=== PATIENT | female | born 1955 | race Caucasian/White ===

== ENCOUNTER → 2018-01-24 | Outpatient (CLI) | payer BC, OTHER ==
[2018-01-24 13:22] VITALS: BP 155/88; PULSE 53; BMI 36.1
--- NOTE | 2018-01-24 14:08 | P.GSHP ---
History of Present Illness H&P Date: 01/24/18 The patient is a 62-year-old white female who on routine mammogram was noted have an area of concern in the left breast. She subsequently underwent an ultrasound which revealed a 5 mm x 5 mm lesion in the 1 o'clock position 3 cm from the nipple. The patient had an ultrasound core biopsy performed which revealed an invasive ductal grade 1 carcinoma. The patient had no palpable abnormalities in her breasts. She had no history of any trauma to her breast. No history of any infection in her breast. She did have over the past year some nonspecific nipple discharge on the left side. This was not bloody in nature. Family history: 1. paternal grandmother: ovarian cancer, in 30's 2. maternal grandfather: prostate cancer 60,s 3. Paternal aunt: Ovarian cancer in 60s Hormonal history: menarche: 9 1/2 : 3, 3 children, first at 21, breast fed: all of them menopause: 53 BCP: none hormones: none Past surgical history: 1. Cholecystectomy, appendectomy Past medical history: 1. Mitral Valve Prolapse, irregular heart rhythm, takes 81 mg of aspirin Social history: Smoke: Negative Alcohol: Negative Drugs: Negative ROS: HEENT: none lung: none Heart: MVP GI: IBS : none Musculoskeletal: Questionable arthritis Neurologic: Negative Psychiatric: Negative Bleeding abnormalities: Does take baby aspirin ALLERGIES: Negative - Constitutional Constitutional: Denies chills, Denies fever - EENT Eyes: bilateral as per HPI Ears: deny: decreased hearing, tinnitus Ears, nose, mouth and throat: Reports headache, Denies sore throat - Breasts Breasts: bilateral: as per HPI - Cardiovascular Comment: MVP - Respiratory Respiratory: Denies cough, Denies 7 - Gastrointestinal Gastrointestinal: Denies abdominal pain, Denies diarrhea, Denies nausea, Denies vomiting - Genitourinary (Female) Genitourinary: Reports as per HPI - Menstruation Menstruation: Reports as per HPI - Musculoskeletal Comment: arthritis - Integumentary Integumentary: Denies pruritus, Denies rash - Neurological Neurological: Reports as per HPI - Psychiatric Psychiatric: Reports as per HPI - Endocrine Endocrine: Denies fatigue, Denies weight change - Hematologic/Lymphatic Comment: baby aspirin - Allergic/Immunologic Allergic/Immunologic: Reports as per HPI Past Medical History History of Any Multi-Drug Resistant Organisms: None Reported Smoking Status: Unknown if ever smoked Surgical - Exam Vital Signs Pulse BP Pulse Ox 53 L 155/88 99 01/24/18 13:19 01/24/18 13:19 01/24/18 13:19 - General well developed, well nourished, no distress - Eyes normal ocular movement, no icteric - ENT no hearing loss, no congestion - Neck no masses, trachea midline - Respiratory normal respiratory effort, clear to auscultation - Cardiovascular Rhythm: regular Heart Sounds: normal: S1, S2 - Abdomen Abdomen: soft, non tender, no guarding, no rigid, no rebound - Neurologic no disoriented, no combative - Musculoskeletal normal gait, normal posture - Psychiatric oriented to time, oriented to person, oriented to place, speech is normal, memory intact Breast examination: Right breast: Multi-positional exam no dominant masses or nodules of concern Right axilla: No adenopathy of concern Left breast: Multi-positional exam no dominant masses or nodules of concern biopsy site is identified no evidence of any infection Left axilla: No adenopathy of concern Results Ultrasound reviewed Assessment and Plan Assessment: Impression/plan: 1. Left breast invasive ductal carcinoma 2. Mitral valve prolapse 3. Status post cholecystectomy appendectomy Plan: 1. Left breast needle localization lumpectomy, sentinel node biopsy, possible axillary node dissection 2. Cardiac clearance secondary to mitral valve prolapse The risks and benefits of lumpectomy versus mastectomy were discussed with the patient. The patient and her wish to undergo lumpectomy. They understand that they will need radiation following the lumpectomy. The risk of bleeding and infection reaction to the anesthetic and fact that margins may be positive were discussed with the patient and her as well. They understand this and wish to proceed. Surgery will be scheduled in the near future. Cc: Dr. Jamilah Casarez
== END ==
LOC: WWCWWP 12:29
PROVIDERS: ATTEND Surgery
DX: Z53.9 Procedure and treatment not carried out, unspecified reason (principal)

== ENCOUNTER 2018-02-25 11:43 | Day surgery (SDC) | payer BC ==
[2018-02-20 15:47] VITALS: BMI 34.9
[~2018-02-25 11:43] MED LIST: ALPRAZolam 0.25 MG TAB PO PRN; DEXAMETHASONE SOD PHOSPHATE 10 MG/ML 1 ML VIAL IV ONE; HEPARIN SODIUM,PORCINE 5,000 UNIT/ML 1 ML VIAL SQ ONE; HYDROmorphone 0.5 MG/0.5 ML SYRINGE IVP PRN; ONDANSETRON 4 MG/2 ML VIAL IVP ONE; Pre Op ABX Message 1 EACH MISC MISCELLANE ONE
[2018-02-25] MEDS: LACTATED RINGERS 1,000 ML IV SCH ×2 (12:14→13:57)
[2018-02-25] MEDS ORDERED: SODIUM BICARB 4% 5 ML VIAL (0.48 MEQ/ML) MISCELLANE ONE (13:16)
[2018-02-25] MEDS ORDERED: LIDOCAINE 1% INJ 10MG/ML (20 ML MDV) SQ ONE ×3 (13:16→14:49)
[2018-02-25] MEDS ORDERED: HEPARIN SODIUM,PORCINE 5,000 UNIT/ML 1 ML VIAL SQ ONE (13:36)
--- NOTE | 2018-02-25 13:38 | P.NAPBC ---
NAPBC Queries - NAPBC Queries Was patient's case review presented at [facility] tumor board? If no, comment.: Yes Was patient's pathology reviewed at [facility]? If no, comment.: Yes Was breast conservation surgery offered? If no, comment.: Yes Was sentinel node biopsy offered? If no, comment.: Yes Was diagnosis confirmed by percutaneous core biopsy? If no, comment.: Yes If mastectomy patient, was a preop referral to a reconstructive surgeon offered? : Yes (not a mastectomy patient)
--- NOTE | 2018-02-25 13:56 | NM ---
EXAMINATION TYPE: NM sentinel node injection DATE OF EXAM: 02/25/2018 COMPARISON: 02/25/2018 HISTORY: Left breast cancer TECHNIQUE AND FINDINGS: The procedure of sentinel lymph node injection was explained to the patient. The benefits, alternatives, and risks were discussed. An informed consent was then obtained. Overlying skin is cleaned with sterile alcohol. Lidocaine buffered with bicarbonate was used as anes thetic into the skin and subcutaneous tissue surrounding the nipple. Following this, 525 uCi Tc 99m Filtered Sulfur Colloid was injected surrounding the outer aspect of the left nipple intradermally. The injection sites were massaged by nuclear logging engineer for 10 minutes after injection. T he patient tolerated the procedure well without any immediate complication. The patient was kept in the radiology department for short stay after the procedure and then taken to surgery for surgical pr ocedure what is presumed intraoperative gamma probe will be used for sentinel lymph node detection. IMPRESSION: Left breast radiotracer injection for sentinel node localization as above.
[2018-02-25] MEDS ORDERED: fentaNYL (PF) 50 MCG/ML 2 ML AMP ONE (14:03)
[2018-02-25] MEDS ORDERED: ceFAZolin 1,000 MG VIAL ONE (14:03)
[2018-02-25] MEDS ORDERED: LIDOCAINE 1% INJ 10MG/ML (20 ML MDV) ONE (14:03)
[2018-02-25] MEDS ORDERED: MIDAZOLAM 2 MG/2 ML VIAL ONE (14:03)
[2018-02-25] MEDS ORDERED: HYDROmorphone (PF) 1 MG/ML ONE (14:03)
[2018-02-25] MEDS ORDERED: ePHEDrine SULFATE/0.9% NACL/PF 50 MG/5 ML SYRINGE IV ONE (14:03)
[2018-02-25] MEDS ORDERED: PROPOFOL 10 MG/ML 20 ML VIAL IV ONE (14:03)
--- NOTE | 2018-02-25 15:22 | MM ---
EXAMINATION TYPE: MG pre op needle loc LT DATE OF EXAM: 02/25/2018 COMPARISON: 01/08/2018 CLINICAL HISTORY: Abnormal mammogram TECHNIQUE: Needle localization with wire placement and surgical excision of area of concern in the breast. FINDINGS: The procedure of needle localization with wire placement and than surgical excision was explained to the patient. Benefits, alternatives, and risks were discussed. An informed consent was then obtained. The shortest pathway for procedure was chosen. Shortest pathway was lateral approach. The overlying skin was prepped and draped in usual sterile fashion. Lidocaine buffered with bicarbonate was used as anesthetic into the skin and subcutaneous tissue up to the level of area of concern. A 7 cm needle was used. It was placed via a lateral approach under mammographic guidance. Subsequent 90 degrees mammogram show the needle to be in satisfactory position relative to the targeted area. At this point, wire was placed and the needle was withdrawn. The wire was fixed to patient's skin. Images were marked for surgeon. The patient tolerated the procedure well without any immediate complication. The patient was kept in the radiology department for short stay after the procedure and then taken to surgery for surgical excision. Targeted calcifications and wire are identified in specimen mammogram. The patient was kept in hospital for short stay after the procedure and then discharged home in stable condition. IMPRESSION: Successful, uncomplicated needle localization with wire placement and surgical excision of suspicious group of calcifications in the left breast, full pathology results to follow. Pathology Results: Malignant A. LEFT BREAST SENTINAL LYMPH NODE #1, BIOPSY: Lymph node negative for metastasis. CK7 and WALLACE immunoperoxidase stains are confirmatory (controls appropriate). B. LEFT AXILLARY CONTENTS: Lymph node negative for metastasis. CK7 and WALLACE immunoperoxidase stains are confirmatory (controls appropriate) C. 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 Invasive lobular carcinoma extends to the inked purple/posterior margin. Margins negative for invasive ductal carcinoma and DCIS. See Surgical Pathology Cancer Case Summary and comment. Margins negative for invasive ductal carcinoma and DCIS. D. BREAST, LEFT, EXTERNAL SURFACE OF NEW SUPERIOR MARGIN: Focal atypical ductal hyperplasia (ADH) and fibrocystic changes. Negative for malignancy. Recommendation Surgical consult of the left breast. NORMAD
--- NOTE | 2018-02-25 15:24 | P.OP ---
Date of Procedure: 02/25/18 Preoperative Diagnosis: Left breast cancer Postoperative Diagnosis: Same Procedure(s) Performed: Needle localization lumpectomy left breast, painting specimen for orientation, placement of Biozorb, sentinel lymph node biopsy Implants: biozorb Anesthesia: GERTRUDEA Surgeon: Jessica Oliver Estimated Blood Loss (ml): 15 IV fluids (ml): 700 Pathology: other ([place] node, lumpectomy tissue left breast) Condition: stable Disposition: PACU Indications for Procedure: Left breast cancer Operative Findings: Fibrocystic breast changes Description of Procedure: The patient is a 62-year-old white female who is status post biopsy of the left breast. The pathology was consistent with a invasive breast cancer. The patient is scheduled for a needle localization lumpectomy, sentinel node biopsy , possible axillary node dissection. The patient was taken to the operating room and following induction of general anesthesia the left breast and axilla were prepped and draped in a sterile fashion. Utilizing the neoprobe the area for incision in the axilla was identified. An incision was made and carried into the axillary tissue. The patient was noted to have a sentinel node identified. The 10 second count of this node was 2 834. The background 10 second count was 34. No other adenopathy of concern was identified. After assured that hemostasis was attained the deep tissues were closed using a 3-0 Vicryl suture. This was followed by closure of the skin with a 4-0 Monocryl. Following this the area of the breast was approached. An incision was made near the needle localization wire. Dissection was carried down to the area of the shaft of the wire and wide excision was performed. Upon excision a palpable abnormality was identified which appeared to be close to the superior margin and additional superior tissue was obtained. After we were assured that hemostasis was attained the wound was evaluated with a sizer for a BioSorb. A 2 x 3 biozorb was chosen. This was placed and secured in place using a 3-0 Vicryl suture. The deep tissues were closed using 3-0 Vicryl suture. The skin was closed using a 4-0 Monocryl. Radiographic evaluation of the specimen confirmed that the area of concern had been removed. The specimen was painted for orientation prior to being sent for x-ray. The additional superior excision margin external surface was painted as well. The patient tolerated the procedure in stable condition. All instrument and sponge counts were correct at the end of the case.
[2018-02-25] MEDS ORDERED: LACTATED RINGERS 1,000 ML IV ONE (15:25)
--- NOTE | 2018-02-25 15:26 | P.DS ---
Providers Attending physician: Jessica Oliver Primary care physician: Jamilah Casarez Plan - Discharge Summary New Discharge Prescriptions: No Action Simvastatin [Zocor] 40 tab PO DAILY Esomeprazole Magnesium [NexIUM] 10 mg PO DAILY Ibuprofen [Motrin] 400 mg PO DAILY PRN PRN Reason: Pain Aspirin 81 mg PO DAILY Cyclobenzaprine [Flexeril] 10 mg PO DAILY PRN PRN Reason: Pain Valsartan [Diovan] 80 mg PO DAILY Ubidecarenone [Co Q-10] 200 mg PO DAILY Cholecalciferol (Vitamin D3) [Vitamin D3] 2,000 unit PO DAILY Famotidine [Pepcid] 20 mg PO BID Metoprolol Tartrate [Lopressor] 100 mg PO BID Discharge Medication List Simvastatin [Zocor] 40 tab PO DAILY 01/24/18 [History] Aspirin 81 mg PO DAILY 02/12/18 [History] Cholecalciferol (Vitamin D3) [Vitamin D3] 2,000 unit PO DAILY 02/12/18 [History] Cyclobenzaprine [Flexeril] 10 mg PO DAILY PRN 02/12/18 [History] Esomeprazole Magnesium [NexIUM] 10 mg PO DAILY 02/12/18 [History] Ibuprofen [Motrin] 400 mg PO DAILY PRN 02/12/18 [History] Ubidecarenone [Co Q-10] 200 mg PO DAILY 02/12/18 [History] Valsartan [Diovan] 80 mg PO DAILY 02/12/18 [History] Famotidine [Pepcid] 20 mg PO BID 02/20/18 [History] Metoprolol Tartrate [Lopressor] 100 mg PO BID 02/20/18 [History] Follow up Appointment(s)/Referral(s): Jessica Oliver MD [STAFF PHYSICIAN] - 1 Week Activity/Diet/Wound Care/Special Instructions: do not drive today wear bra at all times may shower after 48 hours Discharge Disposition: HOME SELF-CARE
[2018-02-25 15:46] VITALS: TEMP 97
[2018-02-25 15:55] VITALS: RESP 16
[2018-02-25] MEDS ORDERED: HYDROcodone/APAP 5-325MG 1 EACH TAB PO ONE (16:38)
[2018-02-25 17:00] VITALS: BP 139/68; PULSE 88
[2018-02-25] MEDS ORDERED: ONDANSETRON 4 MG/2 ML VIAL IVP ONE (17:00)
--- NOTE | 2018-03-04 09:51 | MM ---
MG Surgical Specimen LT EXAMINATION TYPE: MG pre op needle loc LT DATE OF EXAM: 02/25/2018 COMPARISON: 01/08/2018 CLINICAL HISTORY: Abnormal mammogram TECHNIQUE: Needle localization with wire placement and surgical excision of area of concern in the breast. FINDINGS: The procedure of needle localization with wire placement and than surgical excision was explained to the patient. Benefits, alternatives, and risks were discussed. An informed consent was then obtained. The shortest pathway for procedure was chosen. Shortest pathway was lateral approach. The overlying skin was prepped and draped in usual sterile fashion. Lidocaine buffered with bicarbonate was used as anesthetic into the skin and subcutaneous tissue up to the level of area of concern. A 7 cm needle was used. It was placed via a lateral approach under mammographic guidance. Subsequent 90 degrees mammogram show the needle to be in satisfactory position relative to the targeted area. At this point, wire was placed and the needle was withdrawn. The wire was fixed to patient's skin. Images were marked for surgeon. The patient tolerated the procedure well without any immediate complication. The patient was kept in the radiology department for short stay after the procedure and then taken to surgery for surgical excision. Targeted calcifications and wire are identified in specimen mammogram. The patient was kept in hospital for short stay after the procedure and then discharged home in stable condition. IMPRESSION: Successful, uncomplicated needle localization with wire placement and surgical excision of suspicious group of calcifications in the left breast, full pathology results to follow. RECOMMENDATION: Surgical consultation of the left breast. RADHA
== END 2018-02-25 17:39 | disposition home or self-care (01) ==
LOC: OR 11:43
PROVIDERS: ATTEND Surgery
DX: C50.912 Malignant neoplasm of unspecified site of left female breast (principal); N60.12 Diffuse cystic mastopathy of left breast; N60.92 Unspecified benign mammary dysplasia of left breast; I34.0 Nonrheumatic mitral (valve) insufficiency; I10 Essential (primary) hypertension; E78.2 Mixed hyperlipidemia; K21.9 Gastro-esophageal reflux disease without esophagitis; Z79.82 Long term (current) use of aspirin; Z79.899 Other long term (current) drug therapy; Z88.1 Allergy status to other antibiotic agents
CPT/HCPCS: 88342; 88307; 88341; 76098; 19281; 38792; 19301; 38525; A4648; A9520; J2250; J1644; J1100; J2405; J0690; J2001; J3010; J1170; J2704

== ENCOUNTER → 2018-03-07 | Outpatient (CLI) | payer BC ==
[2018-03-07 09:32] VITALS: BP 123/74; PULSE 68; RESP 16; TEMP 98.2; BMI 34.9
--- NOTE | 2018-03-07 10:20 | P.PN ---
Progress Note - Text Progress Note Date: 03/07/18 The patient is a 62-year-old white female status post left breast lumpectomy and sentinel node biopsy on . The patient's pathology revealed no disease in the sentinel lymph nodes, however she did have invasive ductal carcinoma, ductal carcinoma in situ, lobular carcinoma in situ, and in invasive lobular carcinoma at the posterior margin. The patient's radiograph was reviewed again with the radiologist and the area of invasive lobular carcinoma could not be seen radiographically nor was it identified surgically at the time of the lumpectomy. Secondary to the invasive lobular carcinoma a synchronous lesion in the breast it was recommended that she undergo bilateral breast MRI. The patient and her are most likely going to request a mastectomy be performed secondary to the 2 types of cancer in the breast and the DCIS and LCIS. Physical exam: Examination of the breast reveals incision to be clean and dry, examination of the axilla reveals the incision to be clean and dry Impression: 1. Invasive ductal carcinoma of the left breast, invasive lobular carcinoma the left breast, DCIS, LCIS N0, M0 2. Be present case at tumor board 3. Appointment with medical oncology 4. Premarin with plastic surgery 5. Bilateral breast MRI 6. Follow-up here after bilateral breast MRI CC: Dr. Albert and Jamilah Casarez
== END ==
LOC: WWCWWP 09:14
PROVIDERS: ATTEND Surgery
DX: Z53.9 Procedure and treatment not carried out, unspecified reason (principal)

== ENCOUNTER → 2018-03-12 | Outpatient (CLI) | payer BC ==
--- NOTE | 2018-03-14 15:58 | P.PN ---
Progress Note - Text This is a phone conversation from March 14 with patient Venita Jane. The patient had an appointment today with Dr. Arredondo from plastic surgery. After her appointment with Dr. Arredondo she has decided that she does not want breast reconstruction to be performed. We are awaiting results from her MRI. At this time however the patient states that she has decided she would like bilateral mastectomies performed. She was noted to have invasive ductal carcinoma, invasive lobular carcinoma, DCIS, and LCIS in her left breast on a recent lumpectomy. The patient is concerned that she may harbor a malignancy in the right breast which is not detected radiographically or on physical examination. Therefore, at this time she has made a decision to undergo bilateral simple mastectomy without reconstruction. Depending on results of the MRI she may change her mind however, she states that she doesn't think that she would even if the MRI did not show anything in the right breast.
--- NOTE | 2018-03-20 13:53 | BMR ---
EXAMINATION TYPE: MR breast BILAT wo/w con DATE OF EXAM: 03/12/2018 COMPARISON: Screening mammogram dated 12/03/2017. Diagnostic mammogram dated 12/16/2017. Ultrasound dated 12/17/2017. HISTORY: Breast cancer status post lumpectomy with positive posterior margins for invasive lobular carcinoma. TECHNIQUE: A series of fat and water weighted images in the long and short axis views of both breasts are obtained in conjunction with dynamic contrast MRI with subtraction technique. The patient was i njected with 7.5 mL intravenous Gadavist gadolinium contrast. Three-dimensional and additional post processing imaging is created on independent workstation and reviewed during official interpretation of this study. REFERENCE: Reference PULSE SEQUENCES: Multiplanar, multisequence MR images of the breast were obtained on a MRI imaging scanner. Coronal STIR in the body coil, diffusion weighted imaging, followed by pre-contrast axial T2 fat-saturated, non-fat saturated T1, and one pre- and five post-contrast fat-saturated image s were obtained of both breasts together with the breast coil. Post-processed subtraction and MIP reconstructions were then generated. Dynamic images were spatially registered using the [employer]stream software package, and dynamic curves and parametric images were evaluated. As part of the dynamic portion of this examination, contrast was administered intravenously at a rate not provided, without complication. Field of View for the dynamic portion of this study was not provided. FINDINGS: There is scattered fibroglandular tissue bilaterally and mild background enhancement. Coronal STIR sequence demonstrates normal axillary lymph nodes. There is a 3.0 cm seroma in the left axilla. Axial T2 sequence demonstrates no cysts. There is a 7.4 cm fluid collection in the upper outer quadra nt of the left breast. Non fat saturated T1 sequence demonstrates no fat containing lesions. There is susceptibility artifac t in the upper outer quadrant of the left breast, best seen in image 71. Delayed post contrast sequence demonstrates no internal mammary lymphadenopathy. Regarding the right breast: There are no masses, architectural distortion or suspicious areas of enhancement. Regarding the left breast: There are no masses or suspicious areas of enhancement. There is focal ski n thickening, architectural distortion, and mild peripheral enhancement surrounding the post lumpectomy changes in the upper outer quadrant. The lumpectomy cavity extends to the pectoralis muscle posteriorly. Specifically, there is no suspicious enhancement along the posterior margin of the lumpectomy cavity. IMPRESSION: Post lumpectomy changes seen with no correlate to the known positive margins of the left breast. No evidence of malignancy in the right breast. No lymphadenopathy. Susceptibility artifact from the left breast may represent surgical clips or BioZorb. Correlate with mammogram. Recommendations: Appropriate action be taken of the known positive margins with no MR correlate. In addition, next screening mammogram will be due in November 2018. BI-RADS category 1, negative right breast. BI-RADS category 6, known biopsy proven malignancy left breast. REVIEWED BY: THIS DOCUMENT HAS BEEN ELECTRONICALLY SIGNED Janelle Kohler MD Emergency Management Director of Clinical Radiology Delivery Supervisor, Breast Imaging Section Media Reconciliation Specialist Student Education in Radiology [* Janelle Kohler MD/JC Dictated: 03/19/2018 10:14:34 Exam was sent for outside expert review.
== END | disposition home or self-care (01) ==
LOC: RADMRIMAIN 16:04
PROVIDERS: ATTEND Surgery
DX: Z08 Encounter for follow-up examination after completed treatment for malignant neoplasm (principal); Z85.3 Personal history of malignant neoplasm of breast; Z98.890 Other specified postprocedural states
CPT/HCPCS: 77059; 36415; 0159T; A9581

== ENCOUNTER 2018-03-18 10:44 | Observation (INO) | payer BC, MEDICARE ==
[2018-03-17 10:05] VITALS: BMI 34.9
[~2018-03-18 10:44] MED LIST changes: -ALPRAZolam 0.25 MG TAB PO PRN; -DEXAMETHASONE SOD PHOSPHATE 10 MG/ML 1 ML VIAL IV ONE; -HEPARIN SODIUM,PORCINE 5,000 UNIT/ML 1 ML VIAL SQ ONE; -HYDROmorphone 0.5 MG/0.5 ML SYRINGE IVP PRN; +LACTATED RINGERS 1,000 ML IV SCH; +LIDOCAINE 1% 20 ML VIAL (10MG/ML) FOR IV START INTRADERMA PRN; +MIDAZOLAM 2 MG/2 ML VIAL IV PRN; +SCOPOLAMINE 1.5MG/72HR PATCH TRANSDERM ONE
[2018-03-18] MEDS: HEPARIN SODIUM,PORCINE 5,000 UNIT/ML 1 ML VIAL SQ ONE (12:16)
[2018-03-18] MEDS: DEXAMETHASONE SOD PHOSPHATE 10 MG/ML 1 ML VIAL IV ONE ×2 (12:19→18:49)
--- NOTE | 2018-03-18 13:04 | P.ONQ ---
Anesthesiology Proc Note - PNB - Peripheral Nerve Block Performed Other (see comment) Single Time Out Performed: Yes (pectoralis1 and pectoralis2) Procedure Start Time: 11:54 Procedure Stop Time: 12:01 Indication: Acute Post-Operative Pain, Requested by physician Sedation Type: Sedate with meaningful contact maintained Preparation: Sterile Prep Position: Supine Needle Size: 50mm (2") Needle Gauge: 21 Technique: Ultrasound Injectate: 0.5% Ropivacaine (see comment for volume) (ropi .5% 30cc) Blood Aspirated: No Pain Paresthesia on Injection Noted: No Resistance on Injection: Normal Events: Uneventful and Well Tolerated
[2018-03-18] MEDS ORDERED: HEPARIN SODIUM,PORCINE 5,000 UNIT/ML 1 ML VIAL SQ ONE (13:30)
--- NOTE | 2018-03-18 13:34 | P.PN ---
Progress Note - Text Progress Note Date: 03/18/18 The patient had a bilateral breast MRI performed. The treatment of the right breast is dependent on the MRI results. The results are not yet available and therefore we are foregoing surgical treatment of the right breast at this time. The patient understands this. She understands that if a lesion of concern is noted on the MRI in the right breast we would recommend core biopsy. This would be done because if this was a malignancy we would want to do a sentinel node biopsy. The patient was given the option of waiting for the results of the MRI versus proceeding with left breast mastectomy; at this time she wishes to proceed. If the MRI of the right breast is benign the patient will make a decision as to whether she wants prophylactic surgical intervention of the right breast.
[2018-03-18] MEDS ORDERED: ceFAZolin IN SWFI 2 GM/20 ML SYRINGE IVP STA (13:41)
[2018-03-18] MEDS ORDERED: SUCCINYLCHOLINE CHLORIDE 100 MG/5 ML SYR IV ONE (14:21)
[2018-03-18] MEDS ORDERED: PROPOFOL 10 MG/ML 20 ML VIAL IV ONE (14:21)
[2018-03-18] MEDS ORDERED: fentaNYL (PF) 50 MCG/ML 2 ML AMP ONE (14:21)
[2018-03-18] MEDS ORDERED: LIDOCAINE 1% INJ 10MG/ML (20 ML MDV) ONE (14:21)
[2018-03-18] MEDS ORDERED: ePHEDrine SULFATE/0.9% NACL/PF 50 MG/5 ML SYRINGE IV ONE (14:21)
[2018-03-18] MEDS ORDERED: MIDAZOLAM 2 MG/2 ML VIAL ONE (14:21)
[2018-03-18] MEDS ORDERED: HYDROmorphone (PF) 1 MG/ML ONE (14:21)
[2018-03-18] MEDS ORDERED: ROPIVACAINE 5 MG/ML 30 ML VIAL ONE (14:21)
[2018-03-18] MEDS ORDERED: LACTATED RINGERS 1,000 ML IV ONE (15:30)
[2018-03-18] MEDS ORDERED: ONDANSETRON 4 MG/2 ML VIAL IVP PRN (16:10)
[2018-03-18] MEDS ORDERED: NALOXONE 0.4 MG/ML 1 ML VIAL IV PRN (16:10)
--- NOTE | 2018-03-18 16:10 | P.OP ---
Date of Procedure: 03/18/18 Preoperative Diagnosis: Left breast invasive ductal carcinoma, invasive lobular carcinoma, LCIS, DCIS Postoperative Diagnosis: Same Procedure(s) Performed: Left simple mastectomy Anesthesia: ZOEY Surgeon: Jessica Oliver Estimated Blood Loss (ml): 50 IV fluids (ml): 700 Pathology: other (Left breast) Condition: stable Disposition: PACU Indications for Procedure: The patient is a 62-year-old white female who is status post lumpectomy of the left side. Pathology revealed invasive ductal carcinoma, invasive lobular carcinoma, LCIS, and DCIS. The invasive lobular carcinoma was present at the posterior resection margin. After discussion with the family and her she wished to have a simple mastectomy. She understood the risk and benefits and wished to proceed. She was seen by plastic surgery but chose not to have reconstruction. Operative Findings: Left breast lumpectomy site Description of Procedure: The patient was taken to the operating room and following induction of general anesthesia the left breast was prepped and draped in a sterile fashion. Superior and inferior skin flaps were developed using the electrocautery device as well as the Harmonic scalpel for any vessels that were oozing. Dissection was performed down to the chest wall. The breast was then taken from medial to lateral off the pectoralis major muscle. The breast was removed. The wound was irrigated and any small vessels were cauterized. A small vessel in the medial inferior aspect was oversewn using a Vicryl suture. After this we assured that hemostasis was attained. The wound was sprayed with powder Surgicel. This was then again irrigated and no evidence of any bleeding was identified. A ALEJANDRO drain was placed and secured using a silk suture. The deep tissues were closed using 3-0 Vicryl suture. A subcuticular 4-0 Monocryl suture was performed. Steri-Strips were applied. All instrument and sponge counts were correct at the end of the case. The patient tolerated the procedure in stable condition.
[2018-03-18] MEDS: HYDROmorphone 0.5 MG/0.5 ML SYRINGE IVP PRN ×4 (16:42→17:09)
[2018-03-18] MEDS: DEXTROSE 5%-0.45% NACL 1,000 ML IV SCH (18:12)
[2018-03-18] MEDS: METOPROLOL TARTRATE 50 MG TAB PO SCH (20:46)
[2018-03-18] MEDS: HEPARIN SODIUM,PORCINE 5,000 UNIT/ML 1 ML VIAL SQ SCH (20:46)
[2018-03-19] MEDS: ONDANSETRON 4 MG/2 ML VIAL IVP PRN ×2 (00:12→06:43)
[2018-03-19] MEDS: HYDROcodone/APAP 5-325MG 1 EACH TAB PO PRN ×2 (00:38→15:22)
[2018-03-19] MEDS: HYDROmorphone 1 MG/ML 1 ML SYRINGE IV PRN ×2 (01:48→07:16)
[2018-03-19] MEDS: DEXTROSE 5%-0.45% NACL 1,000 ML IV SCH ×2 (01:54→11:44)
[2018-03-19] MEDS ORDERED: CYCLOBENZAPRINE 10 MG TAB PO PRN (06:36)
[2018-03-19] MEDS ORDERED: IBUPROFEN 400 MG TAB PO PRN (06:36)
[2018-03-19] MEDS ORDERED: FAMOTIDINE 20 MG TAB PO SCH (06:45)
[2018-03-19] MEDS: HEPARIN SODIUM,PORCINE 5,000 UNIT/ML 1 ML VIAL SQ ONE (07:22)
[2018-03-19] MEDS: HEPARIN SODIUM,PORCINE 5,000 UNIT/ML 1 ML VIAL SQ SCH (08:23)
[2018-03-19 08:26] LABS: ALT 30 U/L (9-52); AST 24 U/L (14-36); Albumin 3.7 g/dL (3.5-5.0); Alkaline Phosphatase 58 U/L (38-126); Anion Gap 9 mmol/L; Blood Urea Nitrogen 14 mg/dL (7-17); Calcium 9.2 mg/dL (8.4-10.2); Carbon Dioxide 25 mmol/L (22-30); Chloride 102 mmol/L (98-107); Glucose 118 mg/dL (74-99); Sodium 136 mmol/L (137-145); Total Bilirubin 1.1 mg/dL (0.2-1.3); Total Protein 6.3 g/dL (6.3-8.2)
[2018-03-19 08:40] LABS: Basophils % (A) 0 %; Eosinophils # (A) 0.1 k/uL (0-0.7); Eosinophils % (A) 1 %; HCT 38.5 % (34.0-46.0); HGB 12.5 gm/dL (11.4-16.0); Lymphocytes # (A) 1.9 k/uL (1.0-4.8); Lymphocytes % (A) 18 %; MCH 32.1 pg (25.0-35.0); MCHC 32.5 g/dL (31.0-37.0); MCV 98.9 fL (80.0-100.0); Monocytes # (A) 0.6 k/uL (0-1.0); Monocytes % (A) 6 %; Neutrophils # (A) 7.7 k/uL (1.3-7.7); Neutrophils % (A) 74 %; Platelet Count 251 k/uL (150-450); RBC 3.89 m/uL (3.80-5.40); RDW 13.1 % (11.5-15.5); WBC 10.4 k/uL (3.8-10.6)
--- NOTE | 2018-03-19 08:41 | P.PN ---
Subjective Progress Note Date: 03/19/18 The patient is a 62-year-old white female who was postop day #1 from a left breast mastectomy. She complains of nausea and neck and back pain this morning. Secondary to the nausea she has been unable to tolerate her diet. She does not complain of incisional pain. She has a ALEJANDRO drain in place the output is serous in his 25 mL. Objective - Vital Signs Vital signs: Vital Signs Temp 98.2 F 03/19/18 00:08 Pulse 75 03/19/18 00:08 Resp 18 03/19/18 00:08 BP 119/71 03/19/18 00:08 Pulse Ox 95 03/19/18 00:08 Intake & Output 03/18/18 03/19/18 03/19/18 18:59 06:59 18:59 Intake Total 1400 Output Total 50 1005 Balance 1350 -1005 Intake: IV 1400 Output: Drainage 55 Left Breast 55 Urine 950 Estimated Blood Loss 50 Other: # Voids 0 # Emeses 2 - Constitutional General appearance: Present: average body habitus - EENT Eyes: Present: EOMI - Neck Details: Tenderness posterior neck and shoulders. Appears to be musculoskeletal in nature - Respiratory Respiratory: bilateral: CTA - Cardiovascular Rhythm: regular Heart sounds: normal: S1, S2 - Gastrointestinal General gastrointestinal: Present: normal bowel sounds, soft - Integumentary Integumentary Comment(s): Incision clean and dry, wrap removed and replaced No evidence of any hematoma - Psychiatric Psychiatric: Present: A&O x's 3, appropriate affect, intact judgment & insight - Labs CBC & Chem 7: 03/19/18 07:31 Labs: Abnormal Lab Results - Last 24 Hours (Table) 03/19/18 Range/Units 07:31 Sodium 136 L (137-145) mmol/L Glucose 118 H (74-99) mg/dL Assessment and Plan Assessment: Impression: 1. Status post left breast mastectomy postop day #1 2. Nausea 3. Back and shoulder pain Plan: 1. DC Zofran start Reglan 2. Flexeril 3. Await until the patient can tolerate diet
[2018-03-19 08:52] VITALS: RESP 16
[2018-03-19] MEDS ORDERED: PANTOPRAZOLE 40 MG TABLET PO SCH (09:00)
[2018-03-19] MEDS ORDERED: VALSARTAN 80 MG TAB PO SCH (09:00)
[2018-03-19] MEDS ORDERED: PANTOPRAZOLE 40 MG/10 ML VIAL IV SCH (09:00)
[2018-03-19] MEDS: METOCLOPRAMIDE 5 MG/ML 2 ML VIAL IVP PRN ×2 (09:11→15:18)
[2018-03-19] MEDS: METOPROLOL TARTRATE 50 MG TAB PO SCH (09:11)
[2018-03-19 12:24] VITALS: PULSE 61; TEMP 98.5
--- NOTE | 2018-03-19 13:03 | P.CONS ---
History of Present Illness - Reason for Consult Consult date: 03/19/18 Medical management - History of Present Illness This is a 62-year-old female patient of Dr. Fracisco Casarez and Dr. Jamilah Casarez with a past mental history of gastroesophageal reflux disease, hypertension, mitral valve prolapse, degenerative disc disease in the neck. Patient has recently been diagnosed with breast cancer on the left side status post lumpectomy and sentinel lymph node biopsy area pathology report showed left breast sentinel lymph node negative for metastasis. Left axillary lymph node negative for metastasis. Left breast lumpectomy revealed a well differentiated ductal carcinoma with low-grade ductal carcinoma in situ and invasive lobular carcinoma with lobular carcinoma in situ. Invasive lobular carcinoma extends to the inked margins. Margins negative for invasive ductal carcinoma and DCIS. Tumor cells positive for estrogen receptor and progesterone receptor by immunohistochemistry. Tumor cells negative for HER 2/ Jeramie. Patient was brought in the hospital is status post left simple mastectomy with Dr. Luiz Glover. This was completed yesterday. ALEJANDRO drain is in place with plan to continue this post discharge. Patient does have some pain issues and also some nausea in the postop period. She states nausea seems to have cleared now and the Reglan seemed to help her. She denies having any abdominal pain or epigastric pain. No diarrhea or constipation. She is complaining of significant neck discomfort which is chronic for the past 8 years secondary to degenerative disc disease. She takes Flexeril as needed as well as tramadol occasionally. She does have radiation into the shoulders and upper arms on the left she does state pain is improving to her neck as well as breast. Review of Systems All systems: negative Constitutional: Reports chronic pain, Denies chills, Denies fever Eyes: denies blurred vision, denies pain Ears, nose, mouth and throat: Denies headache, Denies sore throat Breasts: left: pain Cardiovascular: Denies chest pain, Denies leg edema, Denies lightheadedness, Denies shortness of breath, Denies syncope Respiratory: Denies cough, Denies cough with sputum, Denies dyspnea, Denies excessive sputum, Denies hemoptysis, Denies home oxygen, Denies wheezing Gastrointestinal: Reports nausea, Denies abdominal pain, Denies diarrhea, Denies vomiting Genitourinary: Denies dysuria, Denies hematuria, Denies urgency Musculoskeletal: Reports neck pain, Reports neck stiffness, Denies myalgias Integumentary: Reports wounds, Denies pruritus, Denies rash Neurological: Denies numbness, Denies weakness Psychiatric: Denies anxiety, Denies depression Endocrine: Denies fatigue, Denies weight change Past Medical History Past Medical History: Cancer, GERD/Reflux, Hypertension, Mitral Valve Prolapse ( MVP) Additional Past Medical History / Comment(s): new dx. breast cancer, degenerative disc disease of cervical spine History of Any Multi-Drug Resistant Organisms: None Reported Past Surgical History: Appendectomy, Breast Surgery, Cholecystectomy Additional Past Surgical History / Comment(s): L breast bx., left breast lumpectomy & sentinel lymph node biopsy, left simple mastectomy Past Anesthesia/Blood Transfusion Reactions: No Reported Reaction Smoking Status: Never smoker Additional Past Alcohol Use History / Comment(s): Patient is a lifelong nonsmoker. She denies any marijuana, illicit drug use or alcohol use. - Past Family History Mother Family Medical History: No Reported History Additional Family Medical History / Comment(s): Mother is alive at age 89 with history of hypertension. Father Family Medical History: Pulmonary Embolus Additional Family Medical History / Comment(s): Father is alive at age 90 with history of skin cell basal cell cancer and hypertension. Brother(s) Additional Family Medical History / Comment(s): She has 3 brothers and 1 sister with no major medical problems. Daughter(s) Additional Family Medical History / Comment(s): Patient has 3 children. One daughter at age 36 with history of complicated ulcerative colitis with history of pneumonia, sepsis and bacterial meningitis, peritonsillar abscess, pulmonary embolism, stroke. Patient's other 2 children have no major medical problems. Maternal grandfather at age 66 8 from prostate cancer. Paternal grandmother at young age from ovarian cancer. Medications and Allergies Home Medications Medication Instructions Recorded Confirmed Type Simvastatin [Zocor] 40 tab PO HS 01/24/18 03/19/18 History Aspirin 81 mg PO DAILY 02/12/18 03/19/18 History Cholecalciferol (Vitamin D3) 2,000 unit PO DAILY 02/12/18 03/19/18 History [Vitamin D3] Cyclobenzaprine [Flexeril] 10 mg PO DAILY PRN 02/12/18 03/19/18 History Esomeprazole Magnesium [NexIUM] 10 mg PO Q48H 02/12/18 03/19/18 History Ibuprofen [Motrin] 400 mg PO DAILY PRN 02/12/18 03/19/18 History Ubidecarenone [Co Q-10] 200 mg PO DAILY 02/12/18 03/19/18 History Valsartan [Diovan] 80 mg PO DAILY 02/12/18 03/19/18 History Famotidine [Pepcid] 20 mg PO Q48H 02/20/18 03/19/18 History Metoprolol Tartrate [Lopressor] 100 mg PO BID 02/20/18 03/19/18 History traMADol HCL [Ultram] 50 mg PO Q6H PRN 03/07/18 03/19/18 History Multivit with Calcium,Iron,Min 1 tab PO DAILY 03/17/18 03/19/18 History [Women's Multivitamin] [place]val[place]-3 Fatty Acids [Avalon-3] 1,000 mg PO DAILY 03/17/18 03/19/18 History Allergies Allergy/AdvReac Type Severity Reaction Status Date / Time ciprofloxacin [From Cipro] Allergy tachycardia Verified 03/19/18 08:09 Physical Exam Vitals: Vital Signs Temp Pulse Pulse Pulse Resp BP BP 03/19/18 08:07 97.7 F 70 16 113/65 03/19/18 00:08 98.2 F 75 18 119/71 03/18/18 20:40 97.1 F L 76 14 118/64 03/18/18 19:46 79 16 95/62 03/18/18 19:16 82 16 118/57 03/18/18 18:46 75 16 115/62 03/18/18 18:14 74 16 111/62 03/18/18 17:59 76 16 124/67 03/18/18 17:44 77 16 121/67 03/18/18 17:25 97.9 F 79 16 127/64 03/18/18 17:05 75 16 133/61 03/18/18 16:50 82 16 138/64 03/18/18 16:35 75 16 137/63 03/18/18 16:21 97.2 F L 85 18 134/61 03/18/18 12:10 63 16 136/41 03/18/18 11:28 98.7 F 59 L 18 155/59 Pulse Ox 03/19/18 08:07 97 03/19/18 00:08 95 03/18/18 20:40 97 03/18/18 19:46 94 L 03/18/18 19:16 93 L 03/18/18 18:46 92 L 03/18/18 18:14 94 L 03/18/18 17:59 03/18/18 17:44 100 03/18/18 17:25 98 03/18/18 17:05 99 03/18/18 16:50 99 03/18/18 16:35 99 03/18/18 16:21 93 L 03/18/18 12:10 100 03/18/18 11:28 98 Intake and Output 03/18/18 03/19/18 03/19/18 22:59 06:59 14:59 Intake Total 400 Output Total 80 975 Balance 320 -975 Intake: IV 400 Output: Drainage 30 25 Left Breast 30 25 Urine 950 Estimated Blood Loss 50 Other: # Voids 0 # Emeses 2 Gen: This is a 62-year-old female. She is sitting up in bed appears to be somewhat uncomfortable mostly from neck pain. HEENT: Head is atraumatic, normocephalic. Pupils equal, round. Sclerae is anicteric. NECK: Supple. No JVD. No lymphadenopathy. No thyromegaly. LUNGS: Clear to auscultation. No wheezes or rhonchi. No intercostal retractions. HEART: Regular rate and rhythm. No murmur. Breast: Left breast incision has dressing in place is clean and dry. ALEJANDRO drain with serous drainage. ABDOMEN: Soft. Bowel sounds are present. No masses. No tenderness. EXTREMITIES: No pedal edema. No calf tenderness. NEUROLOGICAL: Patient is awake, alert and oriented x3. Cranial nerves 2 through 12 are grossly intact. Results CBC & Chem 7: 03/19/18 07:31 03/19/18 07:31 Labs: Abnormal Lab Results - Last 24 Hours (Table) 03/19/18 Range/Units 07:31 Sodium 136 L (137-145) mmol/L Glucose 118 H (74-99) mg/dL Assessment and Plan Plan: 1. Left breast mastectomy under the care of Dr. Luiz Glover. Continue current pain management, Zofran and Reglan for nausea. ALEJANDRO drain remains in place with plan for this continued at discharge. 2. Hypertension. Continue valsartan 80 mg daily and Lopressor 100 mg twice daily. 3. Hyperlipidemia. Continue simvastatin 40 mg at bedtime and omega-3. 4. Gastroesophageal reflux disease. Continue Nexium or equivalent. 5. Degenerative disc disease of the cervical spine with chronic neck pain exacerbated by recent surgical physician. Continue Atkinson, Flexeril. Patient takes tramadol at home. 6. Postop nausea, improved. Discharge plan:Return home Impression and plan of care have been directed as dictated by the signing physician. Melissa Wu nurse practitioner acting as scribe for signing physician.
[2018-03-19] MEDS ORDERED: ATORVASTATIN 20 MG TAB PO SCH (21:00)
--- NOTE | 2018-03-25 10:24 | P.DS ---
Providers Date of admission: 03/19/18 01:34 Attending physician: Jessica Oliver Consults: 03/18/18 16:12 Consult Physician Routine Consulting Provider: Elisha Luther Consult Reason/Comments: medical managment Do you want consulting provider notified?: Yes Primary care physician: Jamilah Hernandez [facility] Course: The patient is a 62-year-old white female who is postop from left simple mastectomy. She had prior undergone a lumpectomy which revealed invasive lobular carcinoma positive at the posterior resection margin. This was a second primary in the breast the patient was noted to have invasive ductal cancer, DCIS, and LCIS. After review of her pathology results the patient opted for a left mastectomy. Initially postoperative she had some nausea which resolved. Additionally she complained of some neck and back discomfort which also resolved. The patient at time of discharge is tolerating diet without difficulty and doing well. Patient Condition at Discharge: Stable Plan - Discharge Summary New Discharge Prescriptions: New HYDROcodone/APAP 5-325MG [[place] 5-325] 1 each PO Q4HR PRN tab PRN Reason: Moderate Pain Continue Simvastatin [Zocor] 40 tab PO HS Esomeprazole Magnesium [NexIUM] 10 mg PO Q48H Cyclobenzaprine [Flexeril] 10 mg PO DAILY PRN PRN Reason: Pain Valsartan [Diovan] 80 mg PO DAILY Ubidecarenone [Co Q-10] 200 mg PO DAILY Cholecalciferol (Vitamin D3) [Vitamin D3] 2,000 unit PO DAILY Famotidine [Pepcid] 20 mg PO Q48H Metoprolol Tartrate [Lopressor] 100 mg PO BID [place]-3 Fatty Acids [[place]-3] 1,000 mg PO DAILY Multivit with Calcium,Iron,Min [Women's Multivitamin] 1 tab PO DAILY Discontinued Ibuprofen [Motrin] 400 mg PO DAILY PRN PRN Reason: Pain Aspirin 81 mg PO DAILY traMADol HCL [Ultram] 50 mg PO Q6H PRN PRN Reason: Pain Control Discharge Medication List Simvastatin [Zocor] 40 tab PO HS 01/24/18 [History] Cholecalciferol (Vitamin D3) [Vitamin D3] 2,000 unit PO DAILY 02/12/18 [History] Cyclobenzaprine [Flexeril] 10 mg PO DAILY PRN 02/12/18 [History] Esomeprazole Magnesium [NexIUM] 10 mg PO Q48H 02/12/18 [History] Ubidecarenone [Co Q-10] 200 mg PO DAILY 02/12/18 [History] Valsartan [Diovan] 80 mg PO DAILY 02/12/18 [History] Famotidine [Pepcid] 20 mg PO Q48H 02/20/18 [History] Metoprolol Tartrate [Lopressor] 100 mg PO BID 02/20/18 [History] Multivit with Calcium,Iron,Min [Women's Multivitamin] 1 tab PO DAILY 03/17/18 [ History] [place]-3 Fatty Acids [[place]-3] 1,000 mg PO DAILY 03/17/18 [History] HYDROcodone/APAP 5-325MG [[place] 5-325] 1 each PO Q4HR PRN tab 03/19/18 [Rx] Activity/Diet/Wound Care/Special Instructions: Patient received supplies for dressing change if needed. Patient and Spouse educated on drain care and return demonstration done. Follow up at [facility] on Mar.24 at 3:40. Call sooner for concerns. Call for any increase in pain, signs or symptoms of infection such as yellow/green drainage, change in odor, fever or increased redness at site. No heavy lifting, no pushing or pulling. sponge bathing only. Discharge Disposition: HOME SELF-CARE
== END 2018-03-19 16:11 | disposition home or self-care (01) ==
LOC: OR 10:44 → 6PED 16:25 → OR 03-19 01:43
PROVIDERS: ADMIT Surgery; ATTEND Surgery
DX: D05.02 Lobular carcinoma in situ of left breast (principal); D05.12 Intraductal carcinoma in situ of left breast; K21.9 Gastro-esophageal reflux disease without esophagitis; I10 Essential (primary) hypertension; I34.1 Nonrheumatic mitral (valve) prolapse; M50.30 Other cervical disc degeneration, unspecified cervical region; E78.5 Hyperlipidemia, unspecified; Z17.0 Estrogen receptor positive status [ER+]; Z90.49 Acquired absence of other specified parts of digestive tract; Z82.49 Family history of ischemic heart disease and other diseases of the circulatory system; Z80.8 Family history of malignant neoplasm of other organs or systems; Z82.3 Family history of stroke; Z80.41 Family history of malignant neoplasm of ovary; Z80.42 Family history of malignant neoplasm of prostate; Z79.82 Long term (current) use of aspirin; Z79.899 Other long term (current) drug therapy; Z88.1 Allergy status to other antibiotic agents
CPT/HCPCS: 19303; 80053; 85025; 88307; G0378; J2250; J1644 ×2; J1100; J2765; J2405 ×2; J2001; J3010; J1170 ×3; J2795; J0330; J2704; C9113; J0690

== ENCOUNTER → 2018-03-24 | Outpatient (CLI) | payer MEDICARE ==
[2018-03-24 15:53] VITALS: BP 138/83; PULSE 67; RESP 12; TEMP 98; BMI 34.9
--- NOTE | 2018-03-24 16:38 | P.PN ---
Progress Note - Text Progress Note Date: 03/24/18 The patient is a 62-year-old white female status post left breast mastectomy. Postoperatively she is doing well without complaints. Her ALEJANDRO drain is still putting out approximately 30 mL's a day for the last 2 days it is serous in nature. Patient's pathology did not reveal residual cancer. Her original pathology was a lumpectomy which had a positive posterior margin for infiltrating lobular carcinoma. The patient subsequently had an MRI performed which did not reveal any lesions of concern in the right breast. At this time the patient is going to be followed conservatively for her right breast. Physical examination: Incision clean and dry ALEJANDRO serous drainage Impression: 1. Patient status post mastectomy for invasive lobular carcinoma positive posterior margin and lumpectomy specimen 2. Patient has an appointment to see medical oncology tomorrow Plan: 1. Follow-up medical oncology 2. Follow up here next week for drain removal CC: Dr. Curry
== END ==
LOC: WWCWWP 15:38
PROVIDERS: ATTEND Surgery
DX: Z53.9 Procedure and treatment not carried out, unspecified reason (principal)

== ENCOUNTER → 2018-04-03 | Outpatient (CLI) | payer MEDICARE ==
[2018-04-03 12:42] VITALS: BP 125/77; PULSE 70; RESP 18; TEMP 97.8; BMI 34.5
--- NOTE | 2018-04-03 13:39 | P.PN ---
Progress Note - Text Progress Note Date: 04/03/18 The patient is a 63-year-old white female status post left breast mastectomy. The patient initially had a lumpectomy and was noted to have a infiltrating lobular carcinoma the posterior margin. This was a second primary tumor in the breast. The patient therefore opted for a left breast mastectomy. Postoperatively the patient is done well she has seen the medical oncologist and onco-type DX study has been ordered. The patient has no complaints at this time. The patient's drainage is serous and is a proximally 17 mL per day. The ALEJANDRO drain will be removed. physical Exam: Lungs: Clear Heart: Regular rate and rhythm Incision: Clean and dry ALEJANDRO output minimal serous Impressioin: 1. Status post left breast mastectomy stage I disease 2. Appointment with medical oncology awaiting Oncotype DX results Plan: 1. Continue to follow with medical oncology 2. Follow up here in 4 months time CC: Dr. Askew/Roosevelt Curry
== END | disposition home or self-care (01) ==
LOC: WWCWWP 12:10
PROVIDERS: ATTEND Surgery
DX: Z53.9 Procedure and treatment not carried out, unspecified reason (principal)

== ENCOUNTER → 2018-04-25 | Outpatient (CLI) | payer MEDICARE ==
[2018-04-25 12:35] VITALS: BP 134/74; PULSE 60; RESP 18; TEMP 98.1; BMI 34.9
--- NOTE | 2018-04-25 13:16 | P.PN ---
Progress Note - Text Progress Note Date: 04/25/18 Patient is a 63 year old white female with a complaint of swelling at the mastectomy site and is concerned this represents a seroma. The patient states the area is slightly swollen and appears to have a fluid wave when she applies pressure to it. It is nontender. There is no evidence of any infection. Examination: Incision clean and dry left chest wall Left chest wall has a seroma present No evidence of recurrent cancer Impression: Seroma left chest wall mastectomy site Plan: Aspiration seroma Procedure: The area of the seroma was prepped using Betadine One percent lidocaine was used to anesthetize the area of the skin A 30 mL syringe and an 18-gauge needle was used to aspirate a seroma. Approximately 85 mL of straw-colored fluid was removed. There was resolution of the seroma. The patient tolerated the procedure in stable condition. Plan: 1. Follow-up in 1 month Cc: Dr. Roosevelt Curry
== END | disposition home or self-care (01) ==
LOC: WWCWWP 11:40
PROVIDERS: ATTEND Surgery
DX: Z53.9 Procedure and treatment not carried out, unspecified reason (principal)

== ENCOUNTER → 2018-05-20 | Outpatient (CLI) | payer MEDICARE ==
--- NOTE | 2018-05-20 13:37 | BD ---
EXAMINATION TYPE: Axial Bone Density DATE OF EXAM: 05/20/2018 COMPARISON: NONE CLINICAL HISTORY: 63 YR OLD FEMALE....ICD-10 CODE: Z17.0 CARCINOMA OF BREAST Height: 61.5 Weight: 186 FRAX RISK QUESTIONS: NOTHING TO NOTE HERE RISK FACTORS HISTORY OF: Active: FAIRLY Postmenopausal woman: YES, AT AGE 54 MEDICATIONS: Additional Medications: BP MEDS, REFLUX MEDS, STATIN FOR CHOLESTEROL, VIT D Additional History: HX OF LT BREAST CA, HYPERTENSION, CHOLESTEROL EXAM MEASUREMENTS: Bone mineral densitometry was performed using the Opendisc System. Bone mineral density as measured about the Lumbar spine is: ----- L1-L4(G/cm2): 1.493 T Score Values are as follows: ----- L1: 1.4 ----- L2: 2.1 ----- L3: 2.6 ----- L4: 4.0 ----- L1-L4: 2.6 Bone mineral density FIRST BONE DENSITY AT [facility] Bone mineral density about the R hip (g/cm2): 1.014 Bone mineral density about the L hip (g/cm2): 1.087 T Score values are as follows: -----R Neck: -0.3 -----L Neck: -0.4 -----R Total: 0.0 -----L Total: 0.6 Bone mineral density FIRST STUDY AT [facility] FRAX%s: THERE IS A 6.6% CHANCE FOR A MAJOR OSTEOPOROTIC FX AND A 0.3% FOR HIP FX.....PROBABILITY O F FX IN 10 YRS TIME IMPRESSION: Normal (Values between +1 and -1 indicate normal bone mass). Consider repeating this study in 5 year s or sooner if there is some new clinical indication. NOTE: T-SCORE=SD OF THE YOUNG ADULT MEAN.
== END | disposition home or self-care (01) ==
LOC: RADBDWWP 07:01
PROVIDERS: ATTEND Internal Medicine Hematology & Oncology
DX: C50.919 Malignant neoplasm of unspecified site of unspecified female breast (principal); Z17.0 Estrogen receptor positive status [ER+]; Z88.1 Allergy status to other antibiotic agents
CPT/HCPCS: 77080

== ENCOUNTER → 2018-05-29 | Outpatient (CLI) | payer MEDICARE ==
[2018-05-29 12:22] VITALS: BP 142/70; PULSE 60; RESP 18; TEMP 97.3; BMI 34.9
--- NOTE | 2018-05-29 13:01 | P.PN ---
Subjective Progress Note Date: 05/29/18 Principal diagnosis: Patient is status post left mastectomy for a left breast cancer. The patient wasn't originally noted to have a lesion in the upper outer quadrant of the left breast which was a 5 x 5 mm lesion at 1:00 3 cm from the nipple. Ultrasound core biopsy was positive for invasive ductal carcinoma, grade 1. The tumor was ER/SD positive and HER-2 negative. The patient underwent a needle localization lumpectomy and sentinel node biopsy on . In the specimen 2 separate nodules were identified grossly. The larger nodule was a 9 mm well-differentiated invasive ductal carcinoma with accompanying low-grade DCIS. The second nodule was an 8 mm focus of invasive lobular carcinoma focally extending to the posterior margin. LCIS was also noted. Secondary to this pathology the patient opted for a mastectomy. The patient did not have further cancer on her mastectomy nor did she have any positive sentinel lymph nodes. The patient has been seen by Dr. Buenrostro she is presently taking tamoxifen. She has not had any radiation therapy nor has his been recommended. The patient did have an Oncotype performed on both specimens and both were low and no chemotherapy has been recommended. The patient is doing well at this time with no complaints. She has minimal recurrence of the seroma but this is not bothering her at this time. Objective - Vital Signs Vital signs: Vital Signs Temp 97.3 F L 05/29/18 12:15 Pulse 60 05/29/18 12:15 Resp 18 05/29/18 12:15 BP 142/70 05/29/18 12:15 Pulse Ox 99 05/29/18 12:15 Intake & Output 05/28/18 05/29/18 05/29/18 18:59 06:59 18:59 Weight 83.915 kg - Exam BMI 35 - Constitutional General appearance: Present: average body habitus, cooperative - EENT Eyes: Present: EOMI ENT: Present: hearing grossly normal - Respiratory Respiratory: bilateral: CTA - Cardiovascular Details: systolic ejection murmur Rhythm: regular Heart sounds: normal: S1, S2 - Gastrointestinal General gastrointestinal: Present: soft - Integumentary Integumentary Comment(s): breast exam: right breast: multipositional exam no masses right axilla: no adenopathy of concern left chest wall: No recurrent disease, very small seroma which is asymptomatic Left axilla: No adenopathy of concern Integumentary: Present: normal turgor - Musculoskeletal Musculoskeletal: Present: gait normal - Psychiatric Psychiatric: Present: A&O x's 3, appropriate affect, intact judgment & insight Assessment and Plan Assessment: Impression: 1. left breast mastectomy small seroma/doing well 2. starting tamoxifen Plan: 1. follow up in 4 months 2. follow up sooner is needed cc: Dr. Jamilah Casarez
== END | disposition home or self-care (01) ==
LOC: WWCWWP 11:48
PROVIDERS: ATTEND Surgery
DX: Z53.9 Procedure and treatment not carried out, unspecified reason (principal)

== ENCOUNTER 2018-09-03 10:18 | Day surgery (SDC) | payer MEDICARE ==
[2018-08-29 16:32] VITALS: BMI 34.9
[~2018-09-03 10:18] MED LIST changes: -LIDOCAINE 1% 20 ML VIAL (10MG/ML) FOR IV START INTRADERMA PRN; -MIDAZOLAM 2 MG/2 ML VIAL IV PRN; -ONDANSETRON 4 MG/2 ML VIAL IVP ONE; -Pre Op ABX Message 1 EACH MISC MISCELLANE ONE; -SCOPOLAMINE 1.5MG/72HR PATCH TRANSDERM ONE
[2018-09-03 11:19] VITALS: TEMP 97.9
[2018-09-03] MEDS ORDERED: PROPOFOL 10 MG/ML 20 ML VIAL IV ONE (11:48)
--- NOTE | 2018-09-03 12:25 | P.PCN ---
Date of Procedure: 09/03/18 Description of Procedure: BRIEF HISTORY: The patient is a pleasant 63-year-old female who presents for outpatient colonoscopy. The patient denies any prior history of colonoscopy. She denies any signs or symptoms of GI bleeding, change in bowel habits, constipation or diarrhea. PROCEDURE PERFORMED: Colonoscopy with polypectomy. PREOPERATIVE DIAGNOSIS: Screening colonoscopy, no prior colonoscopy. ESTIMATED BLOOD LOSS: Minimal. IV sedation per Anesthesia. PROCEDURE: After informed consent was obtained, the patient, was brought into the endoscopy unit. IV sedation was administered by Anesthesia under continuous monitoring. Digital rectal examination was normal. Initially the Olympus CF-190 flexible video colonoscope was then inserted in the rectum, gradually advanced into the cecum without any difficulty. Careful examination was performed as the scope was gradually being withdrawn. Ileocecal valve and the appendiceal orifice were visualized and appeared normal. Prep was excellent. Mucosa of the cecum, ascending colon, transverse colon, descending colon, sigmoid colon, and rectum appeared normal. A diminutive 3 mm polyp in the ascending colon was removed with cold forcep polypectomy. Mild scattered diverticulosis in the sigmoid colon. Retroflexion was performed in the rectum and no lesions were seen, internal hemorrhoids noted. The patient tolerated the procedure well. IMPRESSION: 1. Ascending colon polyp removed with cold forcep polypectomy. 2. Diverticulosis. 3. Mild internal hemorrhoids. RECOMMENDATIONS: Findings of this examination were discussed with the patient and her . Okay to resume high-fiber diet. Await pathology from polypectomy. Recommend repeat colonoscopy in 5 years pending pathology from polypectomy.
[2018-09-03 12:38] VITALS: BP 124/70; PULSE 71; RESP 18
== END 2018-09-03 12:59 | disposition home or self-care (01) ==
LOC: ORWHC2ENDO 10:18
PROVIDERS: ATTEND Internal Medicine
DX: Z12.11 Encounter for screening for malignant neoplasm of colon (principal); D12.2 Benign neoplasm of ascending colon; K64.8 Other hemorrhoids; Z88.1 Allergy status to other antibiotic agents; E78.5 Hyperlipidemia, unspecified; Z85.3 Personal history of malignant neoplasm of breast; K21.9 Gastro-esophageal reflux disease without esophagitis; Z79.899 Other long term (current) drug therapy
CPT/HCPCS: 88305; 45380; J2704

== ENCOUNTER → 2018-10-02 | Outpatient (CLI) | payer MEDICARE ==
[2018-10-02 12:51] VITALS: BP 153/74; PULSE 68; RESP 18; TEMP 98.6; BMI 34.9
--- NOTE | 2018-10-02 13:30 | P.PN ---
Subjective Progress Note Date: 10/02/18 Principal diagnosis: Is a 63-year-old white female who is status post left breast mastectomy on 03/18/18. Lumpectomy in February 2018 at this time she was noted to have multifocal disease. With that understanding she opted for a left breast mastectomy. The tumor was positive for ER/OR negative for HER-2/arnie. The patient is not having any fever or chills nausea or vomiting. The patient was noted to have a lesion in the upper quadrant of the left breast which was 5 mm by 5 mm in size as well as a lesion was 9mm with some low grade DCIS. She does have some hot flashes associated with this. The patient had a colonoscopy performed several weeks ago with no lesions of concern. Family history: Maternal grandfather: Prostate cancer Paternal grandmother: Ovarian cancer ROS: HEENT: none lungs: none heart: mitral valve prolapse : none GI: none Musculoskeletal: Arthritis Neurologic:negative psychiatric: negative Objective - Vital Signs Vital signs: Vital Signs Temp 98.6 F 10/02/18 12:47 Pulse 68 10/02/18 12:47 Resp 18 10/02/18 12:47 BP 153/74 10/02/18 12:47 Pulse Ox 96 10/02/18 12:47 Intake & Output 10/01/18 10/02/18 10/02/18 18:59 06:59 18:59 Weight 83.915 kg - Exam BMI 35 - Constitutional General appearance: Present: average body habitus - EENT Eyes: Present: EOMI ENT: Present: hearing grossly normal - Neck Neck: Present: normal ROM - Respiratory Respiratory: bilateral: CTA - Cardiovascular Rhythm: regular Heart sounds: normal: S1, S2 - Gastrointestinal General gastrointestinal: Present: soft - Musculoskeletal Musculoskeletal: Present: gait normal - Psychiatric Psychiatric: Present: A&O x's 3, appropriate affect, intact judgment & insight - Additional findings Additional findings: breast exam: right breast: Multi-positional exam no dominant masses or nodules of concern right axilla: no adenopathy of concnern left chest wall: no recurrance of cancer no seroma left axilla: no adenopathy of concern Assessment and Plan Assessment: Impression: 1. Patient status post left mastectomy 2. No radiation therapy therapy 3. Patient on Anestrazole 4. mitral valve prolapse Plan: 1. surveillance in 4 months 2. medical managment of medical problems 3. hot flashes managed by Dr. Buenrostro 4. follow up mammogram in 4 months CC: DR. Jamilah Casarez
== END ==
LOC: WWCWWP 12:33
PROVIDERS: ATTEND Surgery
DX: Z53.9 Procedure and treatment not carried out, unspecified reason (principal)

== ENCOUNTER → 2018-12-05 | Outpatient (CLI) | payer MEDICARE ==
--- NOTE | 2018-12-05 12:18 | XR ---
EXAM TYPE: LUMBAR SPINE X RAY SERIES COMPARISON: None HISTORY: Pain TECHNIQUE: 3 views are submitted. FINDINGS: Alignment is anatomic. The pedicles are intact. The transverse processes are intact. There is no s pondylolysis or spondylolisthesis. There is a scoliosis with multilevel degenerative disc disease an d facet arthropathy. Spurring is noted... Levels T12-L4. IMPRESSION: 1. Scoliosis with multilevel severe degenerative disc disease.
--- NOTE | 2018-12-05 12:19 | XR ---
EXAMINATION TYPE: XR ribs RT DATE OF EXAM: 12/05/2018 COMPARISON: NONE HISTORY: Pain TECHNIQUE: 2 views submitted FINDINGS: Lower left rib cage is limited in assessment. Visualized ribs are intact and no acute fract ure. No destructive changes. Scoliosis and degenerative change of the visualized vertebral column. Ar thropathy of the AC joint. IMPRESSION: No acute fracture or destructive lesion
--- NOTE | 2018-12-05 12:20 | XR ---
EXAMINATION TYPE: XR thoracic spine complete DATE OF EXAM: 12/05/2018 COMPARISON: NONE HISTORY: Pain Alignment is anatomic. There is no compression deformities. Vertebral body height and disc interspa sammie are maintained. Scoliosis with multilevel hypertrophic and degenerative changes. Degenerative ch renny lower cervical spine IMPRESSION: 1. Scoliosis with multilevel degenerative change.
== END | disposition home or self-care (01) ==
LOC: RADXRWHC 11:38
PROVIDERS: ATTEND Internal Medicine Hematology & Oncology
DX: M51.36 Other intervertebral disc degeneration, lumbar region (principal); M47.812 Spondylosis without myelopathy or radiculopathy, cervical region; M41.9 Scoliosis, unspecified; C50.419 Malignant neoplasm of upper-outer quadrant of unspecified female breast; I34.1 Nonrheumatic mitral (valve) prolapse; Z17.0 Estrogen receptor positive status [ER+]
CPT/HCPCS: 72072; 72100

== ENCOUNTER → 2018-12-05 | Outpatient (CLI) | payer MEDICARE ==
--- NOTE | 2018-12-08 08:10 | MM ---
Reason for exam: additional evaluation requested from prior study. Last mammogram was performed 3 years and 1 month ago. History: Patient is postmenopausal and has history of breast cancer at age 62. Mastectomy of the left breast, March 2018. Malignant MG pre op needle loc LT of the left breast, February 25, 2018. Lumpectomy of the left breast, February 25, 2018. Taking antineoplastic beginning at age 62. Physical Findings: Nurse did not find any significant physical abnormalities on exam. MG 3D Diag Mammo W/Cad RT CC and MLO view(s) were taken of the right breast. Prior study comparison: March 12, 2018, bilateral MR breast bilat wo/w con. November 08, 2015, mammogram, performed at [facility]. There are scattered fibroglandular densities. Benign appearing calcifications in the right breast. No significant new findings when compared with previous films. These results were verbally communicated with the patient and result sheet given to the patient on 12/05/18. ASSESSMENT: Benign, BI-RAD 2 RECOMMENDATION: Follow-up diagnostic mammogram of the right breast in 1 year.
== END | disposition home or self-care (01) ==
LOC: RADMAMWWP 10:58
PROVIDERS: ATTEND Surgery
DX: R92.8 Other abnormal and inconclusive findings on diagnostic imaging of breast (principal); Z85.3 Personal history of malignant neoplasm of breast
CPT/HCPCS: 77065; G0279; 77061

== ENCOUNTER → 2018-12-12 | Outpatient (CLI) | payer MEDICARE ==
[2018-12-12 12:19] VITALS: PULSE 60; RESP 18; TEMP 98; BMI 35.9
--- NOTE | 2018-12-12 12:41 | P.PN ---
Subjective Progress Note Date: 12/12/18 Patient is status post left mastectomy for a left breast cancer. The patient wasn't originally noted to have a lesion in the upper outer quadrant of the left breast which was a 5 x 5 mm lesion at 1:00 3 cm from the nipple. Ultrasound core biopsy was positive for invasive ductal carcinoma, grade 1. The tumor was ER/LA positive and HER-2 negative. The patient underwent a needle localization lumpectomy and sentinel node biopsy on . In the specimen 2 separate nodules were identified grossly. The larger nodule was a 9 mm well- differentiated invasive ductal carcinoma with accompanying low-grade DCIS. The second nodule was an 8 mm focus of invasive lobular carcinoma focally extending to the posterior margin. LCIS was also noted. Secondary to this pathology the patient opted for a mastectomy. The patient did not have further cancer on her mastectomy nor did she have any positive sentinel lymph nodes. The patient has been seen by Dr. Buenrostro she is presently taking tamoxifen. She has not had any radiation therapy nor has his been recommended. The patient did have an Oncotype performed on both specimens and both were low and no chemotherapy has been recommended. The patient is doing well at this time with no complaints. The patient will follow with Dr. Buenrostro in January. Her last mammogram was 2118. This was a felt to be benign and repeat right breast mammogram in 1 year is recommended. Family History: . Paternal grandmother: Ovarian cancer in her 30s 2. Maternal grandfather: Prostate cancer 3. Paternal aunt: Ovarian cancer Surgical history: 1. Cholecystectomy 2. Appendectomy Past medical history: 1. Mitral valve prolapse 2. Irregular heart rhythm. 3. Status post mastectomy left breast Social history: Smoke: Negative Alcohol: Negative Drugs: Negative Review of systems: HEENT: Patient wears glasses Lungs: Negative Heart: Mitral valve prolapse, irregular heart rhythm GI: GERD : Negative Musculoskeletal: Right is Psychologic: Negative Integument:negative ALLERGIES: ciprofloxin Objective - Vital Signs Vital signs: Vital Signs Temp 98.0 F 12/12/18 12:12 Pulse 60 12/12/18 12:12 Resp 18 12/12/18 12:12 BP Pulse Ox 94 L 12/12/18 12:12 Intake & Output 12/11/18 12/12/18 12/12/18 18:59 06:59 18:59 Weight 86.183 kg - Exam BMI 35.9 - Constitutional General appearance: Present: average body habitus - EENT Eyes: Present: EOMI ENT: Present: hearing grossly normal - Respiratory Respiratory: bilateral: CTA - Cardiovascular Rhythm: regular Heart sounds: normal: S1, S2 - Gastrointestinal Gastrointestinal Comment(s): no guarding or rebound General gastrointestinal: Present: soft - Integumentary Integumentary: Present: normal turgor - Musculoskeletal Musculoskeletal: Present: gait normal - Psychiatric Psychiatric: Present: A&O x's 3, appropriate affect, intact judgment & insight - Additional findings Additional findings: This examination: Right breast: Positional exam no dominant masses or nodules of concern Right axilla: No adenopathy of concern Left chest wall: No evidence of recurrent disease Left axilla: No adenopathy of concern Assessment and Plan Assessment: Impression: 1. Mitral valve prolapse 2. Irregular heart rhythm. 3. Status post mastectomy left breast 4. left breast cancer, status post mastectomy, no recurrence Plan: 1. Repeat evaluation in 3 months 2. Continue tamoxifen 3. Repeat right breast mammogram in 1 year Cc: Dr. Jamilah Curry
== END | disposition home or self-care (01) ==
LOC: WWCWWP 11:35
PROVIDERS: ATTEND Surgery
DX: Z53.9 Procedure and treatment not carried out, unspecified reason (principal)

== ENCOUNTER → 2019-01-12 | Outpatient (CLI) | payer MEDICARE ==
--- NOTE | 2019-01-12 15:52 | XR ---
EXAMINATION TYPE: XR cervical spine limited DATE OF EXAM: 01/12/2019 COMPARISON: NONE HISTORY: Pain TECHNIQUE: 3 views submitted FINDINGS: Odontoid intact. Hypertrophic change and spurring involving the mid and lower cervical spin e with severe degenerative disc disease C5-C6 and retrolisthesis. Multilevel severe facet arthropathy with suspected foraminal encroachment. IMPRESSION: 1. Multilevel severe degenerative disc disease and facet arthropathy. Retrolisthesis of C5 and C6 may result in canal stenosis. Recommend follow-up MRI.
--- NOTE | 2019-01-12 15:58 | XR ---
EXAM TYPE: LUMBAR SPINE X RAY SERIES COMPARISON: NONE HISTORY: 12/05/2018 TECHNIQUE: 4 views are submitted. FINDINGS: Alignment is anatomic. The pedicles are intact. The transverse processes are intact. There is no spondylolysis or spondylolisthesis. There is a scoliosis with multilevel degenerative disc disease and facet arthropathy. Hypertrophic spurring noted anterior ly at multiple levels. IMPRESSION: 1. Scoliosis with multilevel severe degenerative disc disease. Recommend MRI.
--- NOTE | 2019-01-12 16:00 | XR ---
EXAMINATION TYPE: XR pelvis AP view DATE OF EXAM: 01/12/2019 COMPARISON: NONE HISTORY: Pain The osseous structures are intact and the joint spaces are preserved. No acute fracture is seen. Vi sualized bowel gas pattern is nonspecific. Degenerative change lower lumbar spine. Mild concentric n arrowing of the hip joints with hypertrophic changes of the acetabulum. Nonspecific calcifications in the pelvis. IMPRESSION: 1. Mild bilateral arthropathy of the hips. Degenerative change lower lumbar spine.
== END | disposition home or self-care (01) ==
LOC: RADXRMAIN 15:09
PROVIDERS: ATTEND Chiropractor
DX: M48.02 Spinal stenosis, cervical region (principal); M50.322 Other cervical disc degeneration at C5-C6 level; M51.34 Other intervertebral disc degeneration, thoracic region; M46.92 Unspecified inflammatory spondylopathy, cervical region; M41.86 Other forms of scoliosis, lumbar region; M12.852 Other specific arthropathies, not elsewhere classified, left hip; M12.851 Other specific arthropathies, not elsewhere classified, right hip
CPT/HCPCS: 72040; 72100; 72170

== ENCOUNTER → 2019-03-19 | Outpatient (CLI) | payer MEDICARE ==
[2019-03-19 13:49] VITALS: BP 158/80; PULSE 74; RESP 18; TEMP 98.1; BMI 35.6
--- NOTE | 2019-03-19 14:27 | P.PN ---
Subjective Progress Note Date: 03/19/19 Principal diagnosis: right breast cancer Patient is status post left mastectomy for a left breast cancer. The patient wasn't originally noted to have a lesion in the upper outer quadrant of the left breast which was a 5 x 5 mm lesion at 1:00 3 cm from the nipple. Ultrasound core biopsy was positive for invasive ductal carcinoma, grade 1. The tumor was ER/WI positive and HER-2 negative. The patient underwent a needle localization lumpectomy and sentinel node biopsy on . In the specimen 2 separate nodules were identified grossly. The larger nodule was a 9 mm well- differentiated invasive ductal carcinoma with accompanying low-grade DCIS. The second nodule was an 8 mm focus of invasive lobular carcinoma focally extending to the posterior margin. LCIS was also noted. Secondary to this pathology the patient opted for a mastectomy. The patient did not have further cancer on her mastectomy nor did she have any positive sentinel lymph nodes. The patient has been seen by Dr. Buenrostro she is presently taking anestrazole. She has not had any radiation therapy nor has his been recommended. The patient did have an Oncotype performed on both specimens and both were low and no chemotherapy has been recommended. The patient is doing well at this time with no complaints. The patient saw Dr. Buenrostro in January and we'll see him again next month. She is presently on anestrazole. She has had some hot flashes. Her last mammogram was . This was felt to be benign and repeat right breast mammogram in 1 year is recommended. She has no complaints related to her breast or chest wall. She did have an exacerbation of lower back pain with sciatica earlier this year. This seemed to occur after working in her flower beds. She is seeing a chiropractor at this time and it is improving somewhat. Venita had x-ray examination of the pelvis done on this was the field mild bilateral arthropathy of the hips, degenerative change lower lumbar spine, she also had lumbar spine x-rays which revealed scoliosis with multilevel degenerative disc disease recommended MRI and a cervical spine x-ray which revealed multilevel degenerative disc disease and facet arthropathy again recommend a follow-up MRI, she discussed this with her primary care doctor at this time is opted not to have an MRI. Family History: . Paternal grandmother: Ovarian cancer in her 30s 2. Maternal grandfather: Prostate cancer 3. Paternal aunt: Ovarian cancer Surgical history: 1. Cholecystectomy 2. Appendectomy Past medical history: 1. Mitral valve prolapse 2. Irregular heart rhythm. 3. Status post mastectomy left breast Social history: Smoke: Negative Alcohol: Negative Drugs: Negative Review of systems: constitutional: hot flashes HEENT: Patient wears glasses Lungs: Negative Heart: Mitral valve prolapse, irregular heart rhythm GI: GERD : Negative Musculoskeletal: sciatica left side Psychologic: Negative Integument:negative ALLERGIES: ciprofloxin Objective - Vital Signs Vital signs: Vital Signs Temp 98.1 F 03/19/19 13:45 Pulse 74 03/19/19 13:45 Resp 18 03/19/19 13:45 BP 158/80 03/19/19 13:45 Pulse Ox 97 03/19/19 13:45 Intake & Output 03/18/19 03/19/19 03/19/19 18:59 06:59 18:59 Weight 85.729 kg - Constitutional General appearance: Present: average body habitus - EENT Eyes: Present: EOMI ENT: Present: hearing grossly normal - Neck Neck: Present: normal ROM - Respiratory Respiratory: bilateral: CTA - Cardiovascular Rhythm: regular Heart sounds: normal: S1, S2 - Gastrointestinal General gastrointestinal: Present: soft - Integumentary Integumentary: Present: normal turgor - Musculoskeletal Musculoskeletal: Present: gait normal - Psychiatric Psychiatric: Present: A&O x's 3, appropriate affect, intact judgment & insight - Additional findings Additional findings: bresat exam: Right breast: Multi-positional exam no dominant masses or nodules of concern Right axilla: No adenopathy of concern Left chest wall: No evidence of recurrent cancer Left axilla: No adenopathy of concern Assessment and Plan Assessment: Impression: 1. Personal history of left breast cancer/status post mastectomy no evidence of recurrent disease 2. Fibrocystic breast changes 3. Family history of cancer 4. Degenerative disc disease and arthritis /back pain 5. Sciatica 6. Patient is presently on anastrozole with some hot flashes 7. mitral valve prolapse needs surgical intervention 8. is not interested in reconstruction at this time, had seen plastic surgery Plan: 1. Continue anastrozole and discuss hot flashes with Dr. Buenrostro 2. Follow up in 6 months time 3. follow up back pain with DR. Casarez 4. possible open ehart surgery CC: Dr. Roosevelt Casarez
== END ==
LOC: WWCWWP 13:33
PROVIDERS: ATTEND Surgery
DX: Z53.9 Procedure and treatment not carried out, unspecified reason (principal)

== ENCOUNTER 2019-07-21 07:54 | Day surgery (SDC) | payer MEDICARE ==
[2019-07-17 10:05] VITALS: BMI 34.9
[~2019-07-21 07:54] MED LIST changes: +ALPRAZolam 0.25 MG TAB PO PRN; +ALPRAZolam 0.5 MG TAB PO PRN; +ASPIRIN 325 MG TAB PO ONE; +ATORVASTATIN 80 MG TAB PO ONE; -LACTATED RINGERS 1,000 ML IV SCH; +NITROGLYCERIN SL TABS 0.4 MG TAB SUBLINGUAL PRN; +SODIUM CHLORIDE 0.9% 1,000 ML in EMPTY BAG 1 BAG IV ONE
[2019-07-21] MEDS ORDERED: SODIUM CHLORIDE 0.9% 1,000 ML IV ONE ×2 (08:20→09:09)
[2019-07-21 08:43] VITALS: RESP 16; TEMP 98.2
[2019-07-21] MEDS ORDERED: fentaNYL (PF) 50 MCG/ML 2 ML AMP ONE (08:56)
[2019-07-21] MEDS: BENZOCAINE SPRAY 1 CAN TOPICAL ONE ×2 (09:46→09:48)
[2019-07-21] MEDS ORDERED: MIDAZOLAM 2 MG/2 ML VIAL IVP ONE ×2 (09:46→09:48)
[2019-07-21] MEDS ORDERED: fentaNYL (PF) 50 MCG/ML 2 ML AMP IVP ONE ×2 (09:46→09:48)
[2019-07-21] MEDS ORDERED: LIDOCAINE 1% INJ 10MG/ML (20 ML MDV) ONE (10:16)
[2019-07-21] MEDS ORDERED: LIDOCAINE 1% INJ 10MG/ML (20 ML MDV) SQ ONE (10:37)
[2019-07-21] MEDS ORDERED: IOPAMIDOL-370 100ML BTL INJ ONE (10:49)
[2019-07-21] MEDS ORDERED: RX INFO: IV CONTRAST WAS GIVEN 1 EACH MISC MISCELLANE PRN (11:07)
[2019-07-21] MEDS ORDERED: SODIUM CHLORIDE 0.9% 1,000 ML IV SCH (11:15)
--- NOTE | 2019-07-21 11:58 | ECHOT ---
TRANSESOPHAGEAL ECHOCARDIOGRAM TRANSESOPHAGEAL ECHO: INDICATION: Mitral regurgitation. PROCEDURE NOTE: After obtaining informed consent, transesophageal echocardiogram was performed in left lateral position using an Omni plane probe. Local and IV sedation were obtained with Xylocaine spray, 2 mg of Versed and 50 mcg of fentanyl. The patient tolerated the procedure well without any obvious immediate complication. Total sedation time was 10 minutes. FINDINGS: 1. Mitral valve shows mitral valve prolapse with severe anteriorly directed mitral regurgitation. Mitral valve leaflets are thickened. There is a partial flail of the posterior mitral leaflet noted. 2. Left atrium appears enlarged. 3. Right atrium and right ventricle seen within normal limits. 4. Left ventricle has normal size and systolic function. 5. Aortic valve is a 3-leaflet valve, it is free of stenosis or regurgitation. 6. Tricuspid valve shows mild tricuspid regurgitation. 7. Interatrial septum, there is no evidence of [id number] shunt by color-flow Doppler or [id number] shunt by agitated saline contrast study. Aorta shows mild atherosclerotic changes. CONCLUSION: 1. 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 2. Normal LV systolic function. PLAN: I am going to refer the patient for mitral valve repair. MMODL / IJN: [id number] /
--- NOTE | 2019-07-21 11:58 | CC ---
CARDIAC CATHETERIZATION REPORT INDICATION: Mitral regurgitation. After obtaining informed consent, left heart catheterization and coronary angiogram were performed via the right femoral artery using standard Dylan catheters. Patient tolerated the procedure well without any obvious immediate complications. Patient received moderate conscious sedation. Total sedation time was 13 minutes. A femoral angiogram was performed and Angio-Seal will be deployed for hemostasis. FINDINGS: 1. HEMODYNAMICS: Left ventricular end-diastolic pressure is 14 mm. There is no significant gradient across the aortic valve. 2. LEFT VENTRICULOGRAM: Left ventriculogram is performed in MURPHY position, shows normal left ventricular size and systolic function with an ejection fraction of 70%. There is 3+ mitral regurgitation noted. ANGIOGRAPHIC DATA: 1. LEFT MAIN CORONARY ARTERY: Left main coronary artery is a normal-sized vessel and free of stenosis. Divides into left anterior descending coronary artery and circumflex coronary artery. LAD and its branches, circumflex coronary artery and its branches are free of significant stenosis. CONCLUSION: 1. Severe mitral regurgitation. 2. Normal coronary arteries. PLAN: Patient will undergo mitral valve repair and we will arrange for an outpatient surgical evaluation. MMODL / IJN: [id number] /
--- NOTE | 2019-07-21 12:01 | LTR ---
DATE OF SERVICE: 07/21/2019 RE: Venita Sanchez Dear Roosevelt; I performed left heart catheterization and transesophageal echo on Venita Sanchez, a detailed procedure note is included for your records. In brief, the transesophageal echo reveals severe mitral regurgitation secondary to mitral valve prolapse, predominantly affecting the posterior mitral leaflet. The coronaries are normal, LV function is normal. Patient will be referred for mitral valve repair. Thank you for giving me the privilege in participating with this pleasant lady. Sincerely, MD EMANI Chaparro / CELESTE: [id number] /
[2019-07-21 13:06] VITALS: PULSE 73
[2019-07-21 13:42] VITALS: BP 123/59
== END 2019-07-21 14:55 | disposition home or self-care (01) ==
LOC: CATHCVL 07:54
PROVIDERS: ATTEND Internal Medicine Cardiovascular Disease
DX: I34.1 Nonrheumatic mitral (valve) prolapse (principal); I10 Essential (primary) hypertension; E78.2 Mixed hyperlipidemia; Z82.49 Family history of ischemic heart disease and other diseases of the circulatory system
CPT/HCPCS: 93312; 93320; 93325; 93458; C1769 ×2; C1760; C1894; J2250; J2001; J3010; Q9967

== ENCOUNTER → 2019-08-12 | Outpatient (CLI) | payer MEDICARE ==
[2019-08-12 10:08] LABS: HCT 39.8 % (34.0-46.0); HGB 13.1 gm/dL (11.4-16.0); MCH 31.8 pg (25.0-35.0); MCV 96.5 fL (80.0-100.0); Platelet Count 279 k/uL (150-450); RBC 4.13 m/uL (3.80-5.40); RDW 13.2 % (11.5-15.5); WBC 5.8 k/uL (3.8-10.6)
[2019-08-12 10:15] LABS: Appearance,Urine Clear (Clear); Bilirubin,Urine Negative (Negative); Blood,Urine Negative (Negative); Color,Urine Light Yellow; Glucose,Urine (UA) Negative (Negative); Ketones,Urine Negative (Negative); Leukocyte Esterase,Urine Small (Negative); Nitrite,Urine Negative (Negative); Protein,Urine Negative (Negative); Specific Gravity,Urine 1.008 (1.001-1.035); Urobilinogen,Urine <2.0 mg/dL (<2.0)
[2019-08-12 10:16] LABS: Hyaline Casts,Urine 1 /lpf (0-2); RBC,Urine <1 /hpf (0-5); Squamous Epithelial Cell,Urine <1 /hpf (0-4); WBC,Urine 1 /hpf (0-5)
[2019-08-12 10:20] LABS: Partial Thromboplastin Time 22.1 sec (22.0-30.0); Prothrombin Time 10.4 sec (9.0-12.0)
--- NOTE | 2019-08-12 12:18 | US ---
EXAMINATION TYPE: US carotid duplex BILAT DATE OF EXAM: 08/12/2019 COMPARISON: NONE CLINICAL HISTORY: OPEN HEART. Pre-Op coronary artery bypass graft EXAM MEASUREMENTS: RIGHT: Peak Systolic Velocity (PSV) cm/sec ----- Right CCA: 65.1 ----- Right ICA: 76.1 ----- Right ECA: 84.2 ICA/CCA ratio: 1.2 RIGHT: End Diastole cm/sec ----- Right CCA: 18.8 ----- Right ICA: 20.7 ----- Right ECA: 12.0 LEFT: Peak Systolic Velocity (PSV) cm/sec ----- Left CCA: 63.3 ----- Left ICA: 97.5 ----- Left ECA: 57.8 ICA/CCA ratio: 1.5 LEFT: End Diastole cm/sec ----- Left CCA: 18.8 ----- Left ICA: 33.4 ----- Left ECA: 9.1 VERTEBRALS (direction of flow): Right Vertebral: Antegrade Left Vertebral: Antegrade Rhythm: Normal Mild atherosclerotic changes, grayscale, color Doppler, spectral Doppler imaging performed of the car otid arteries. Waveform analysis does not show significant stenosis of the internal carotid arteries by Doppler presley evans. IMPRESSION: No hemodynamic significant stenosis of the proximal internal carotid arteries by Doppler criteria, an indirect measurement of carotid stenosis
--- NOTE | 2019-08-12 12:46 | XR ---
EXAMINATION TYPE: XR chest 2V DATE OF EXAM: 08/12/2019 COMPARISON: NONE HISTORY: Preop open heart surgery TECHNIQUE: Frontal and lateral views of the chest are obtained. FINDINGS: There is no focal air space opacity, pleural effusion, or pneumothorax seen. The cardiac silhouette size is within normal limits. The osseous structures are intact, there may be a spinal c urvature, there is thoracic spondylosis. Prominent lung volumes may be indicative of underlying COPD. IMPRESSION: No acute cardiopulmonary process.
[2019-08-12 16:16] LABS: Albumin 4.5 g/dL (3.80-4.90); Albumin/Globulin Ratio 2.5 (1.60-3.17); BUN/Creat Ratio 21.25 Ratio (12.00-20.00); Calcium 9.9 mg/dL (8.7-10.3); Chol/HDL Ratio 3.25; Globulin 1.8 g/dL (1.6-3.3); LDL Cholesterol,Calculated 68.2 mg/dL (0.0-131.0); Magnesium 1.8 mg/dL (1.5-2.4); Non-African American GFR(CKD) 76.8 (60.0-200.0); Potassium 4.4 mmol/L (3.5-5.5); Total Bilirubin 0.9 mg/dL (0.3-1.2); Total Protein 6.3 g/dL (6.2-8.2); VLDL Calculation 57.8 mg/dL (5.00-40.00)
[2019-08-12 17:18] LABS: Hepatitis A Antibody IgM Non-Reactive (Non-Reactive); Hepatitis B Core IgM Non-Reactive (Non-Reactive); Hepatitis B Surface Antigen Non-Reactive (Non-Reactive); Hepatitis C IgG Antibody Non-Reactive (Non-Reactive)
[2019-08-12 18:19] LABS: Hemoglobin A1C 5.3 % (4.0-6.0)
== END | disposition home or self-care (01) ==
LOC: LABWHC1 08:48
PROVIDERS: ATTEND Surgery
DX: I34.1 Nonrheumatic mitral (valve) prolapse (principal); I48.91 Unspecified atrial fibrillation; Z79.01 Long term (current) use of anticoagulants; E78.5 Hyperlipidemia, unspecified
CPT/HCPCS: 36415; 71046; 80053; 80061; 80074; 81001; 83036; 83735; 84443; 85027; 85610; 85730; 87070; 87086; 93005; 93880; 94150

== ENCOUNTER 2019-08-17 05:32 | Inpatient (IN) | payer MEDICARE ==
--- NOTE | 2019-08-14 13:14 | P.PN ---
Progress Note - Text Progress Note Date: 08/14/19 A 5 m walk test was completed with the patient with time 1:2.26 seconds, time 2: 2.05 seconds, time 3: 2.35 seconds. The STS risk score was calculated and was discussed with the patient by Dr. Keisha Madrigal.
[~2019-08-17 05:32] MED LIST changes: +ALBUMIN HUMAN 25% 50 ML IV ONE; +ALBUMIN HUMAN 5% 500 ML IVPB ONE; -ALPRAZolam 0.25 MG TAB PO PRN; -ALPRAZolam 0.5 MG TAB PO PRN; -ASPIRIN 325 MG TAB PO ONE; -ATORVASTATIN 80 MG TAB PO ONE; +CALCIUM CHLORIDE 100 MG/ML 10 ML SYRINGE IV ONE; +CHLORHEXIDINE GLUCONATE 15 ML CUP MUCOUS MEM ONE; +CLEVIDIPINE BUTYRATE 25 MG in EMPTY BAG 1 BAG IV ONE; +DEXTROSE 5% IN WATER 1,000 ML with POTASSIUM CHLORIDE 110 MEQ, MAGNESIUM SULFATE 16 MEQ... IV ONE; +DEXTROSE 5% IN WATER 1,000 ML with POTASSIUM CHLORIDE 25 MEQ, SODIUM CHLORIDE 2.5MEQ/ML... IRRIGATION ONE; +HEPARIN SODIUM 1,000 UN/ML (10ML VL) IV ONE; +HEPARIN SODIUM,PORCINE 5,000 UNIT in SODIUM CHLORIDE 0.9% 500 ML 500 ML IV ONE; +INSULIN REGULAR 100 UNIT in SODIUM CHLORIDE 0.9% 100 ML IV ONE; +MAGNESIUM SULFATE MG 500 MG/ML IV ONE; +MANNITOL 25% 12.5 GM/50 ML VIAL IV ONE; -NITROGLYCERIN SL TABS 0.4 MG TAB SUBLINGUAL PRN; +NITROGLYCERIN-D5W PMX 25 MG/250 ML BTL IV ONE; +NOREPINEPHRINE 4 MG in SODIUM CHLORIDE 0.9% 250 ML IV ONE; +PAPAVERINE 360 MG in SODIUM CHLORIDE 0.9% 90 ML IV ONE; +PHENYLEPHRINE 10 MG/ML VIAL IV ONE; +PHENYLEPHRINE 40 MG in SODIUM CHLORIDE 0.9% 250 ML IV ONE; +PROPOFOL 1,000 MG/100 ML VIAL IV ONE; +PROTAMINE SULFATE 10 MG/ML 25 ML VIAL IV ONE; +PROTAMINE SULFATE 250 MG in EMPTY BAG 1 BAG IV ONE; +SODIUM BICARB 8.4% 50 ML SYR (1 MEQ/ML) IV ONE; +SODIUM CHLORIDE 0.9% 1,000 ML IV ONE; -SODIUM CHLORIDE 0.9% 1,000 ML in EMPTY BAG 1 BAG IV ONE; +TRANEXAMIC ACID 2,000 MG in SODIUM CHLORIDE 0.9% 80 ML IV ONE; +ceFAZolin 1,000 MG in SODIUM CHLORIDE 0.9% IRRIGATIO 1,000 ML IRRIGATION ONE; +ceFAZolin 2,000 MG in SODIUM CHLORIDE 0.9% 30 ML IVPB ONE
[2019-08-17] MEDS ORDERED: MUPIROCIN 2% OINT 22 GM TUBE NASAL ONE (06:00)
[2019-08-17] MEDS: ASPIRIN 325 MG TAB PO ONE ×2 (06:09→14:49)
[2019-08-17] MEDS: ATORVASTATIN 10 MG TAB PO ONE ×2 (06:10→14:49)
[2019-08-17] MEDS: METOPROLOL TARTRATE 12.5 MG TAB PO ONE ×2 (06:10→14:49)
[2019-08-17] MEDS: LACTATED RINGERS 1,000 ML IV ONE ×2 (06:23→07:00)
[2019-08-17] MEDS ORDERED: LIDOCAINE 1% (10MG/ML) FOR IV START INTRADERMA ONE (06:23)
[2019-08-17] MEDS ORDERED: ceFAZolin 1,000 MG in SODIUM CHLORIDE 0.9% IRRIGATIO 1,000 ML IRRIGATION ONE (07:33)
[2019-08-17] MEDS ORDERED: MIDAZOLAM 2 MG/2 ML VIAL ONE (07:51)
[2019-08-17] MEDS ORDERED: VECURONIUM 10 MG VIAL IV ONE (07:51)
[2019-08-17] MEDS ORDERED: ceFAZolin 1,000 MG VIAL ONE (07:51)
[2019-08-17] MEDS ORDERED: MAGNESIUM SULFATE 4 MEQ/ML 10ML VIAL ONE (07:51)
[2019-08-17] MEDS ORDERED: SODIUM CHLORIDE 0.9% 250 ML BAG ONE (07:51)
[2019-08-17] MEDS ORDERED: HEPARIN SODIUM,PORCINE 10,000 UNIT/ML 1 ML VIAL ONE (07:51)
[2019-08-17] MEDS ORDERED: SODIUM CHLORIDE 0.9% 100 ML BAG ONE (07:51)
[2019-08-17] MEDS ORDERED: PROTAMINE SULFATE 10 MG/ML 25 ML VIAL IV ONE (07:51)
[2019-08-17] MEDS ORDERED: PROPOFOL 10 MG/ML 20 ML VIAL IV ONE (07:51)
[2019-08-17] MEDS ORDERED: ePHEDrine SULFATE/0.9% NACL/PF 50 MG/5 ML SYRINGE IV ONE (07:51)
[2019-08-17] MEDS ORDERED: ELECTROLYTE-R (PH 7.4) 1,000 ML IV.SOLN IV ONE (07:51)
[2019-08-17] MEDS ORDERED: CALCIUM CHLORIDE 100 MG/ML 10 ML SYRINGE ONE (07:51)
[2019-08-17] MEDS ORDERED: LIDOCAINE 2% SYG (PF) 100 MG/5 ML ONE (07:51)
[2019-08-17] MEDS ORDERED: ALBUMIN HUMAN 5% (25gm) 500 ML VIAL IVPB ONE (07:51)
[2019-08-17] MEDS ORDERED: fentaNYL (PF) 50 MCG/ML 2 ML AMP ONE (07:51)
[2019-08-17] MEDS ORDERED: PHENYLEPHRINE-0.9% NACL SYG 1 MG/10 ML SYRINGE ONE (07:51)
[2019-08-17] MEDS ORDERED: INSULIN REGULAR 100 UNIT/ML VIAL ONE (07:51)
[2019-08-17] MEDS ORDERED: SUCCINYLCHOLINE CHLORIDE 100 MG/5 ML SYR IV ONE (07:51)
[2019-08-17] MEDS ORDERED: fentaNYL (PF) 50 MCG/ML 50 ML VIAL ONE (07:51)
[2019-08-17] MEDS ORDERED: TRANEXAMIC ACID 1,000 MG/10 ML VIAL ONE (07:51)
[2019-08-17] MEDS ORDERED: SODIUM CHLORIDE 0.9% IRRIG 1,000 ML BTL IRRIGATION ONE (07:51)
[2019-08-17 13:58] LABS: ABG Base Excess 1.5 mmol/L; ABG Glucose Whole Blood 106 mg/dL (75-99); ABG HCO3 26 mmol/L (21-25); ABG Hematocrit 38 % (34.0-46.0); ABG Ionized Calcium 4.9 mg/dL (4.5-5.3); ABG Oxygen Saturation 99.9 % (94-97); ABG PCO2 39 mmHg (35-45); ABG PH 7.43 (7.35-7.45); ABG PO2 193 mmHg (83-108); ABG Potassium Whole Blood 4.3 mmol/L (3.4-4.5); ABG Sodium Whole Blood 138 mmol/L (135-146); ABG TCO2 27 mmol/L (19-24); Allen Test Performed? Yes
[2019-08-17 13:59] LABS: ABG Lactic Acid Whole Blood 2.8 mmol/L (0.5-1.6)
[2019-08-17 14:00] LABS: ABG Base Excess 0.9 mmol/L; ABG Glucose Whole Blood 125 mg/dL (75-99); ABG HCO3 25 mmol/L (21-25); ABG Hematocrit 32 % (34.0-46.0); ABG Ionized Calcium 4.7 mg/dL (4.5-5.3); ABG Oxygen Saturation 99.9 % (94-97); ABG PCO2 39 mmHg (35-45); ABG PH 7.42 (7.35-7.45); ABG PO2 210 mmHg (83-108); ABG Potassium Whole Blood 3.7 mmol/L (3.4-4.5); ABG Sodium Whole Blood 137 mmol/L (135-146); ABG TCO2 27 mmol/L (19-24); Allen Test Performed? Yes
[2019-08-17 14:02] LABS: ABG Base Excess -2.5 mmol/L; ABG Glucose Whole Blood 132 mg/dL (75-99); ABG HCO3 23 mmol/L (21-25); ABG Ionized Calcium 4.1 mg/dL (4.5-5.3); ABG PCO2 39 mmHg (35-45); ABG PH 7.37 (7.35-7.45); ABG PO2 415 mmHg (83-108); ABG Potassium Whole Blood 3.8 mmol/L (3.4-4.5); ABG Sodium Whole Blood 132 mmol/L (135-146); ABG TCO2 24 mmol/L (19-24); Allen Test Performed? Yes
[2019-08-17 14:03] LABS: ABG Hematocrit 23 % (34.0-46.0); ABG Lactic Acid Whole Blood 2.6 mmol/L (0.5-1.6)
[2019-08-17 14:05] LABS: ABG Base Excess -1.8 mmol/L; ABG Glucose Whole Blood 224 mg/dL (75-99); ABG HCO3 24 mmol/L (21-25); ABG Hematocrit 23 % (34.0-46.0); ABG Ionized Calcium 4.4 mg/dL (4.5-5.3); ABG Lactic Acid Whole Blood 3.5 mmol/L (0.5-1.6); ABG PCO2 45 mmHg (35-45); ABG PH 7.34 (7.35-7.45); ABG PO2 301 mmHg (83-108); ABG Potassium Whole Blood 4.6 mmol/L (3.4-4.5); ABG Sodium Whole Blood 134 mmol/L (135-146); ABG TCO2 25 mmol/L (19-24); Allen Test Performed? Yes
[2019-08-17 14:07] LABS: ABG Base Excess 1.2 mmol/L; ABG Glucose Whole Blood 226 mg/dL (75-99); ABG HCO3 26 mmol/L (21-25); ABG Hematocrit 22 % (34.0-46.0); ABG Ionized Calcium 4.3 mg/dL (4.5-5.3); ABG Lactic Acid Whole Blood 3.4 mmol/L (0.5-1.6); ABG PCO2 42 mmHg (35-45); ABG PO2 396 mmHg (83-108); ABG Potassium Whole Blood 4.2 mmol/L (3.4-4.5); ABG Sodium Whole Blood 137 mmol/L (135-146); ABG TCO2 27 mmol/L (19-24); Allen Test Performed? Yes
[2019-08-17 14:08] LABS: ABG Base Excess -0.3 mmol/L; ABG Glucose Whole Blood 202 mg/dL (75-99); ABG HCO3 25 mmol/L (21-25); ABG Ionized Calcium 4.3 mg/dL (4.5-5.3); ABG PCO2 44 mmHg (35-45); ABG PH 7.37 (7.35-7.45); ABG PO2 393 mmHg (83-108); ABG Potassium Whole Blood 3.9 mmol/L (3.4-4.5); ABG Sodium Whole Blood 139 mmol/L (135-146); ABG TCO2 27 mmol/L (19-24); Allen Test Performed? Yes
[2019-08-17 14:09] LABS: ABG Hematocrit 22 % (34.0-46.0)
[2019-08-17 14:10] LABS: ABG Base Excess -2.1 mmol/L; ABG Glucose Whole Blood 186 mg/dL (75-99); ABG HCO3 23 mmol/L (21-25); ABG Hematocrit 21 % (34.0-46.0); ABG Ionized Calcium 4.3 mg/dL (4.5-5.3); ABG Lactic Acid Whole Blood 5.6 mmol/L (0.5-1.6); ABG PCO2 39 mmHg (35-45); ABG PH 7.38 (7.35-7.45); ABG PO2 380 mmHg (83-108); ABG Potassium Whole Blood 4.2 mmol/L (3.4-4.5); ABG Sodium Whole Blood 138 mmol/L (135-146); ABG TCO2 24 mmol/L (19-24); Allen Test Performed? Yes
[2019-08-17 14:11] LABS: ABG Base Excess -1.1 mmol/L; ABG Glucose Whole Blood 136 mg/dL (75-99); ABG HCO3 24 mmol/L (21-25); ABG Hematocrit 30 % (34.0-46.0); ABG Ionized Calcium 4.6 mg/dL (4.5-5.3); ABG PCO2 39 mmHg (35-45); ABG PO2 348 mmHg (83-108); ABG Potassium Whole Blood 3.6 mmol/L (3.4-4.5); ABG Sodium Whole Blood 140 mmol/L (135-146); ABG TCO2 25 mmol/L (19-24); Allen Test Performed? Yes
[2019-08-17 14:12] LABS: ABG Lactic Acid Whole Blood 4.6 mmol/L (0.5-1.6)
[2019-08-17] MEDS ORDERED: DEXTROSE 5% IN WATER 100 ML with AMIODARONE 150 MG IV PRN (14:36)
[2019-08-17] MEDS ORDERED: PROPOFOL 1,000 MG in EMPTY BAG 1 BAG IV SCH (14:36)
[2019-08-17] MEDS ORDERED: BENZOCAINE/MENTHOL LOZENG 1 EACH LOZENGE MUCOUS MEM PRN (14:36)
[2019-08-17] MEDS ORDERED: Phosphorus Replacement Protoco 1 EACH MISC MISCELLANE PRN (14:36)
[2019-08-17] MEDS ORDERED: AMIODARONE 300 MG in DEXTROSE 5% IN WATER 250 ML IV PRN ×2 (14:36)
[2019-08-17] MEDS ORDERED: AMIODARONE 360 MG in DEXTROSE 5% IN WATER 200 ML IV PRN ×2 (14:36)
[2019-08-17] MEDS ORDERED: Magnesium Replacement Protocol 1 EACH MISC MISCELLANE PRN (14:36)
[2019-08-17] MEDS ORDERED: CALCIUM GLUCONATE 2 GM in SODIUM CHLORIDE 0.9% 100 ML IVPB PRN (14:36)
[2019-08-17] MEDS ORDERED: IPRATROPIUM-ALBUTEROL 3 ML NEB INHALATION PRN (14:36)
[2019-08-17] MEDS ORDERED: Potassium Replacement Protocol 1 EACH MISC MISCELLANE PRN (14:36)
[2019-08-17 14:37] LABS: Glucose,Whole Blood 98 mg/dL (75-99)
[2019-08-17 14:46] LABS: Basophils % (A) 0 %; Eosinophils % (A) 0 %; HCT 28.1 % (34.0-46.0); Lymphocytes # (A) 1.2 k/uL (1.0-4.8); Lymphocytes % (A) 9 %; MCH 32.4 pg (25.0-35.0); MCHC 33.4 g/dL (31.0-37.0); Mean Platelet Volume 8.3; Monocytes # (A) 0.9 k/uL (0-1.0); Monocytes % (A) 6 %; Neutrophils # (A) 11.1 k/uL (1.3-7.7); Neutrophils % (A) 84 %; RDW 13.1 % (11.5-15.5); WBC 13.3 k/uL (3.8-10.6)
[2019-08-17] MEDS: LACTATED RINGERS 1,000 ML IV SCH (14:51)
[2019-08-17 14:52] LABS: HGB 9.4 gm/dL (11.4-16.0); Platelet Count 111 k/uL (150-450)
[2019-08-17 14:57] LABS: ALT 19 U/L (4-34); AST 60 U/L (14-36); African American GFR (CKD) >90 (>60 ml/min/1.73 sqM); Albumin 3.1 g/dL (3.5-5.0); Alkaline Phosphatase 30 U/L (38-126); Anion Gap 6 mmol/L; Blood Urea Nitrogen 14 mg/dL (7-17); Calcium 8.2 mg/dL (8.4-10.2); Carbon Dioxide 26 mmol/L (22-30); Chloride 106 mmol/L (98-107); Glucose 89 mg/dL (74-99); Magnesium 2.7 mg/dL (1.6-2.3); Non-African American GFR(CKD) >90 (>60 ml/min/1.73 sqM); Potassium 3.5 mmol/L (3.5-5.1); Sodium 138 mmol/L (137-145); Total Bilirubin 0.9 mg/dL (0.2-1.3)
[2019-08-17 15:01] LABS: INR 1.3 (<1.2); Partial Thromboplastin Time 43.7 sec (22.0-30.0); Prothrombin Time 13.2 sec (9.0-12.0)
[2019-08-17 15:11] LABS: Glucose,Whole Blood 105 mg/dL (75-99)
--- NOTE | 2019-08-17 15:14 | XR ---
EXAMINATION TYPE: XR chest 1V portable DATE OF EXAM: 08/17/2019 COMPARISON: 08/12/2019 HISTORY: Status post cardiac surgery TECHNIQUE: Single frontal view of the chest is obtained. FINDINGS: Right-sided [place]-Lee catheter terminates in the pulmonary outflow tract. Closure device i s seen as well as cardiac angioplasty. Enteric tube terminates off the distal [id number] appropria tely positioned. Mediastinal drains are seen. Endotracheal tube appears to terminate approximately 2. 6 cm in the rei but is partially obscured. Right-sided thoracostomy tube terminates near the lung apex. Very trace right apical pneumothorax seen. No left-sided pneumothorax identified. Cardiomediast inal silhouette is prominent in its upper portion. IMPRESSION: Postoperative changes of the chest as described above. Trace residual right pneumothorax with right thoracostomy tube.
--- NOTE | 2019-08-17 15:22 | P.CNPUL ---
History of Present Illness Consult date: 08/17/19 Reason for consult: other Chief complaint: Mitral valve prolapse with severe mitral valve regurgitation History of present illness: 64-year-old white female patient with past medical history of arthritis, known history of mitral valve prolapse, paroxysmal atrial fibrillation on Eliquis, past history of breast cancer status post left mastectomy, who was referred for surgical intervention, preop PFT showed FEV1 of 1.95 L or 92% of predicted, normal PFT, who had elective mitral valve repair with exclusion of left atrial appendage, modified maze procedure and intraoperative transesophageal echocardiogram on 08/17/2019. Patient is seen in the postoperative period in the intensive care unit, she sedated, intubated current vent settings are SIAMV mode of ventilation with a rate of 12, tidal volume is 400, FiO2 100% and PEEP of 5. Current drips include lactated Ringer's at rate of 50, Diprivan at 20 mics per kilo per minute, and insulin drip is on standby. Hemodynamically patient is stable, in sinus mechanism, epicardial wires connected to the pacemaker with backup rate of AAI 50, PA pressures are 35/21, CVP is 12, cardiac output is 5.5, cardiac index is 3.0. Postoperative blood work shows white blood cell count of 13.3, hemoglobin is 9.4, INR is 1.3, blood gas showed pO2 of 348, pCO2 of 39, pH of 7.40. Electrolytes and renal profile are all within normal limits. 2 mediastinal and left pleural chest tube with small amount of serosanguineous output, no air leak. Review of Systems All systems: negative Constitutional: Denies chills, Denies fever Eyes: denies blurred vision, denies pain Ears, nose, mouth and throat: Denies headache, Denies sore throat Cardiovascular: Denies chest pain, Denies shortness of breath Respiratory: Reports dyspnea, Denies cough Gastrointestinal: Denies abdominal pain, Denies diarrhea, Denies nausea, Denies vomiting Genitourinary: Denies dysuria, Denies hematuria Musculoskeletal: Denies myalgias Integumentary: Denies pruritus, Denies rash Neurological: Denies numbness, Denies weakness Psychiatric: Denies anxiety, Denies depression Endocrine: Denies fatigue, Denies weight change Past Medical History Past Medical History: Atrial Fibrillation, Cancer, GERD/Reflux, Hyperlipidemia, Mitral Valve Prolapse (MVP) Additional Past Medical History / Comment(s): dx. breast cancer 2016-no chemo or radiation, degenerative disc disease of cervical and lumbar spine-chronic pain to neck and left leg, LEAKY MITRAL VALVE History of Any Multi-Drug Resistant Organisms: None Reported Past Surgical History: Appendectomy, Breast Surgery, Cholecystectomy Additional Past Surgical History / Comment(s): L breast bx., left breast lumpectomy & sentinel lymph node biopsy, left simple mastectomy, colonoscopy. Past Anesthesia/Blood Transfusion Reactions: No Reported Reaction Additional Past Anesthesia/Blood Transfusion Reaction / Comment(s): no hx blood transfusion Smoking Status: Never smoker - Past Family History Mother Family Medical History: Deep Vein Thrombosis (DVT), Hypertension Additional Family Medical History / Comment(s): Mother is alive at age 89 with history of hypertension. Father Family Medical History: Pulmonary Embolus Additional Family Medical History / Comment(s): Father is alive at age 90 with history of skin cell basal cell cancer and hypertension. Brother(s) Additional Family Medical History / Comment(s): She has 3 brothers and 1 sister with no major medical problems. Daughter(s) Family Medical History: Pulmonary Embolus Additional Family Medical History / Comment(s): Patient has 3 children. One daughter at age 36 with history of complicated ulcerative colitis with history of pneumonia, sepsis and bacterial meningitis, peritonsillar abscess, pulmonary embolism, stroke. Patient's other 2 children have no major medical problems. Maternal grandfather at age 66 8 from prostate cancer. Paternal grandmother at young age from ovarian cancer. Medications and Allergies Home Medications Medication Instructions Recorded Confirmed Type Simvastatin [Zocor] 40 mg PO HS 01/24/18 08/17/19 History Cholecalciferol (Vitamin D3) 2,000 unit PO DAILY 02/12/18 08/17/19 History [Vitamin D3] Cyclobenzaprine [Flexeril] 10 mg PO DAILY PRN 02/12/18 08/17/19 History Ubidecarenone [Co Q-10] 200 mg PO DAILY 02/12/18 08/17/19 History Valsartan [Diovan] 80 mg PO DAILY 02/12/18 08/17/19 History Metoprolol Tartrate [Lopressor] 100 mg PO BID 02/20/18 08/17/19 History Multivit with Calcium,Iron,Min 1 tab PO DAILY 03/17/18 08/17/19 History [Women's Multivitamin] [place]-3 Fatty Acids [[place]-3] 1,000 mg PO DAILY 03/17/18 08/17/19 History Anastrozole [Arimidex] 1 mg PO DAILY 08/29/18 08/17/19 History Esomeprazole Magnesium [NexIUM] 20 mg PO Q2D 08/29/18 08/17/19 History Ranitidine HCl 150 mg PO Q2D 08/29/18 08/17/19 History Apixaban [Eliquis] 5 mg PO BID 07/17/19 08/17/19 History Acetaminophen [Tylenol Arthritis] 1,300 mg PO BID PRN 08/13/19 08/17/19 History Ibuprofen 400 mg PO Q8H PRN 08/13/19 08/17/19 History traMADol HCL [Ultram] 50 mg PO Q6HR PRN 08/13/19 08/17/19 History Allergies Allergy/AdvReac Type Severity Reaction Status Date / Time ciprofloxacin [From Cipro] Allergy tachycardia Verified 08/17/19 05:46 Physical Exam Vitals: Vital Signs Temp Pulse Resp BP BP Pulse Ox 08/17/19 06:04 99.3 F 66 18 145/75 164/90 96 Intake and Output 08/17/19 08/17/19 08/17/19 06:59 14:59 22:59 Intake Total 132 Output Total 1500 Balance -1368 Intake: IV 132 Output: Urine 500 Estimated Blood Loss 1000 Other: Weight 86 kg GENERAL EXAM: Sedated, intubated, 64-year-old white female patient, comfortable in no apparent distress. HEAD: Normocephalic/atraumatic. EYES: Normal reaction of pupils, equal size. Conjunctiva pink, sclera white. NOSE: Clear with pink turbinates. THROAT: No erythema or exudates. NECK: No masses, no JVD, no thyroid enlargement, no adenopathy. CHEST: No chest wall deformity. Symmetrical expansion. Midsternal incision is clean dry and intact, 2 mediastinal and left pleural chest tube and active to Pleur-evacs with small amount of serosanguineous output, no air leak. AV wires in place, connected to an external pacemaker, in AAI mode with a backup rate of 50, intrinsic rhythm is sinus rhythm with a rate of 66 LUNGS: Equal air entry with no crackles, wheeze, rhonchi or dullness. CVS: Regular rate and rhythm, normal S1 and S2, no gallops, no murmurs, no rubs ABDOMEN: Soft, nontender. No hepatosplenomegaly, normal bowel sounds, no guarding or rigidity. EXTREMITIES: No clubbing, no edema, no cyanosis, 2+ pulses and upper and lower extremities. MUSCULOSKELETAL: Muscle strength and tone normal. SPINE: No scoliosis or deformity SKIN: No rashes CENTRAL NERVOUS SYSTEM: Sedated, intubated No focal deficits, tone is normal in all 4 extremities. PSYCHIATRIC: Sedated, intubated. Appropriate affect. Intact judgment and insight. Results - Laboratory Findings CBC and BMP: 08/17/19 14:35 08/17/19 14:35 ABG ABG pH 7.40 (7.35-7.45) 08/17/19 13:34 ABG pCO2 39 mmHg (35-45) 08/17/19 13:34 ABG pO2 348 mmHg (83-108) H 08/17/19 13:34 ABG O2 Saturation 100.0 % (94-97) H 08/17/19 13:34 PT/INR, D-dimer PT 13.2 sec (9.0-12.0) H 08/17/19 14:35 INR 1.3 (<1.2) H 08/17/19 14:35 Abnormal lab findings: Abnormal Labs 08/12/19 08/17/19 08/17/19 09:05 08:50 09:41 WBC RBC Hgb Hct Plt Count Neutrophils # PT INR APTT ABG pH ABG pO2 193 H 210 H ABG HCO3 26 H ABG Total CO2 27 H 27 H ABG O2 Saturation 99.9 H 99.9 H ABG Hematocrit 32 L ABG Sodium ABG Potassium ABG Ionized Calcium ABG Glucose 106 H 125 H ABG Lactic Acid 2.8 H* 3.0 H* Hemoglobin 10.4 L Calcium Magnesium AST Alkaline Phosphatase Total Protein Albumin Arterial Blood Potassium Arterial Blood Glucose 106 H 125 H Crossmatch See Detail 08/17/19 08/17/19 08/17/19 10:13 10:46 11:18 WBC RBC Hgb Hct Plt Count Neutrophils # PT INR APTT ABG pH 7.34 L ABG pO2 415 H 301 H 396 H ABG HCO3 26 H ABG Total CO2 25 H 27 H ABG O2 Saturation 100.0 H 100.0 H 100.0 H ABG Hematocrit 23 L 23 L 22 L ABG Sodium 132 L 134 L ABG Potassium 4.6 H ABG Ionized Calcium 4.1 L 4.4 L 4.3 L ABG Glucose 132 H 224 H 226 H ABG Lactic Acid 2.6 H* 3.5 H* 3.4 H* Hemoglobin 7.6 L 7.5 L 7.2 L Calcium Magnesium AST Alkaline Phosphatase Total Protein Albumin Arterial Blood Potassium 4.6 H Arterial Blood Glucose 132 H 224 H 226 H Crossmatch 08/17/19 08/17/19 08/17/19 11:46 12:22 13:34 WBC RBC Hgb Hct Plt Count Neutrophils # PT INR APTT ABG pH ABG pO2 393 H 380 H 348 H ABG HCO3 ABG Total CO2 27 H 25 H ABG O2 Saturation 100.0 H 100.0 H 100.0 H ABG Hematocrit 22 L 21 L 30 L ABG Sodium ABG Potassium ABG Ionized Calcium 4.3 L 4.3 L ABG Glucose 202 H 186 H 136 H ABG Lactic Acid 4.0 H* 5.6 H* 4.6 H* Hemoglobin 7.1 L 6.8 L* 9.7 L Calcium Magnesium AST Alkaline Phosphatase Total Protein Albumin Arterial Blood Potassium Arterial Blood Glucose 202 H 186 H 136 H Crossmatch 08/17/19 08/17/19 08/17/19 14:35 14:35 14:35 WBC 13.3 H RBC 2.90 L Hgb 9.4 L D Hct 28.1 L Plt Count 111 L D Neutrophils # 11.1 H PT 13.2 H INR 1.3 H APTT 43.7 H ABG pH ABG pO2 ABG HCO3 ABG Total CO2 ABG O2 Saturation ABG Hematocrit ABG Sodium ABG Potassium ABG Ionized Calcium ABG Glucose ABG Lactic Acid Hemoglobin Calcium 8.2 L Magnesium 2.7 H AST 60 H Alkaline Phosphatase 30 L Total Protein 5.0 L Albumin 3.1 L Arterial Blood Potassium Arterial Blood Glucose Crossmatch - Diagnostic Findings Chest x-ray: report reviewed, image reviewed Assessment and Plan Plan: Assessment: #1. Mitral valve prolapse, with severe mitral valve regurgitation with flail of P2, status post sternotomy, mitral valve repair, left atrial appendage exclusion , modified maze procedure, and intraoperative transesophageal echocardiogram, postoperative day 0 #2. Routine ventilator management postop sternotomy #3. Paroxysmal atrial fibrillation, was on Eliquis, currently on hold #4. Hyperlipidemia #5. Lifetime nonsmoker, preop PFT showed normal spirometry Plan: Follow the weaning and extubation protocol, provide incentive spirometer after the extubation, hemodynamically patient is stable, is doing well, no significant bleeding from the chest tubes, no arrhythmias. Postoperative chest x-ray and lab work has been reviewed, and are unremarkable, all lines and ET tube in appropriate positions, no pneumothorax. Daily chest x-rays daily labs, close hemodynamic monitoring. I performed a history & physical examination of the patient and discussed their management with my nurse practitioner, Jessica Araya. I reviewed the nurse practitioner's note and agree with the documented findings and plan of care. Lung sounds are positive for diminished breath sounds at the bases. The findings and the impression was discussed with the patient. I attest to the documentation by the nurse practitioner. Time with Patient: Greater than 30
[2019-08-17 15:26] LABS: ABG Base Excess -1.2 mmol/L; ABG HCO3 25 mmol/L (21-25); ABG PCO2 52 mmHg (35-45); ABG PH 7.29 (7.35-7.45); ABG PO2 298 mmHg (83-108); ABG TCO2 27 mmol/L (19-24); Allen Test Performed? Yes
[2019-08-17] MEDS: CLEVIDIPINE BUTYRATE 25 MG in EMPTY BAG 1 BAG IV SCH (15:56)
[2019-08-17] MEDS ORDERED: IPRATROPIUM-ALBUTEROL 3 ML NEB INHALATION SCH (16:00)
[2019-08-17] MEDS: POTASSIUM CHLORIDE 20 MEQ in WATER FOR INJECTION 1 100ML.BAG IVPB SCH ×2 (16:10→18:32)
[2019-08-17 16:15] LABS: Glucose,Whole Blood 97 mg/dL (75-99)
[2019-08-17 17:11] LABS: Glucose,Whole Blood 174 mg/dL (75-99)
[2019-08-17] MEDS: INSULIN REGULAR 100 UNIT in SODIUM CHLORIDE 0.9% 100 ML IV SCH (17:15)
[2019-08-17] MEDS: ALBUMIN HUMAN 5% 250 ML in EMPTY BAG 1 BAG IVPB PRN ×2 (17:19→17:20)
[2019-08-17] MEDS: MORPHINE SULFATE 2 MG/ML SYRINGE IVP PRN ×2 (17:21→19:52)
[2019-08-17 17:28] LABS: Basophils % (A) 0 %; Eosinophils % (A) 0 %; HCT 29.5 % (34.0-46.0); HGB 9.8 gm/dL (11.4-16.0); Lymphocytes % (A) 6 %; MCH 32.3 pg (25.0-35.0); MCHC 33.1 g/dL (31.0-37.0); MCV 97.6 fL (80.0-100.0); Mean Platelet Volume 8.1; Monocytes % (A) 6 %; Neutrophils # (A) 14.1 k/uL (1.3-7.7); Neutrophils % (A) 87 %; Platelet Count 133 k/uL (150-450); RBC 3.03 m/uL (3.80-5.40); RDW 13.2 % (11.5-15.5); WBC 16.3 k/uL (3.8-10.6)
[2019-08-17] MEDS: ACETAMINOPHEN IV (For NPO) 1,000 MG in EMPTY BAG 1 BAG IVPB SCH ×2 (17:29→23:42)
[2019-08-17] MEDS: KETOROLAC 30 MG/ML 1 ML VIAL IVP SCH ×2 (17:29→23:02)
[2019-08-17] MEDS ORDERED: METOPROLOL TARTRATE 5 MG/5 ML VIAL IVP PRN (17:48)
[2019-08-17] MEDS ORDERED: METOPROLOL TARTRATE 5 MG/5 ML VIAL IVP ONE (17:53)
[2019-08-17 18:09] LABS: Glucose,Whole Blood 166 mg/dL (75-99)
[2019-08-17] MEDS: ESMOLOL IN SODIUM CHLORIDE PMX 2.5 GM in SALINE 1 250ML.BAG IV SCH (19:02)
[2019-08-17 19:12] LABS: Glucose,Whole Blood 152 mg/dL (75-99)
[2019-08-17 19:16] LABS: ABG Base Excess -5.3 mmol/L; ABG HCO3 21 mmol/L (21-25); ABG Oxygen Saturation 99.7 % (94-97); ABG PCO2 38 mmHg (35-45); ABG PH 7.34 (7.35-7.45); ABG PO2 155 mmHg (83-108); ABG TCO2 22 mmol/L (19-24); Allen Test Performed? Yes
[2019-08-17 20:09] LABS: Glucose,Whole Blood 147 mg/dL (75-99)
[2019-08-17] MEDS: METOCLOPRAMIDE 5 MG/ML 2 ML VIAL IVP PRN (20:16)
[2019-08-17 20:26] LABS: Basophils % (A) 0 %; Eosinophils % (A) 0 %; HCT 27.9 % (34.0-46.0); HGB 9.2 gm/dL (11.4-16.0); Lymphocytes # (A) 0.8 k/uL (1.0-4.8); Lymphocytes % (A) 6 %; MCH 32.4 pg (25.0-35.0); MCHC 33.2 g/dL (31.0-37.0); MCV 97.7 fL (80.0-100.0); Monocytes # (A) 0.6 k/uL (0-1.0); Monocytes % (A) 5 %; Neutrophils # (A) 10.6 k/uL (1.3-7.7); Neutrophils % (A) 88 %; Platelet Count 119 k/uL (150-450); RBC 2.85 m/uL (3.80-5.40); RDW 13.2 % (11.5-15.5); WBC 12.1 k/uL (3.8-10.6)
[2019-08-17] MEDS: IPRATROPIUM-ALBUTEROL 3 ML NEB INHALATION SCH ×2 (20:47)
[2019-08-17] MEDS ORDERED: METOPROLOL TARTRATE 12.5 MG TAB PO SCH (21:00)
[2019-08-17 21:07] LABS: Glucose,Whole Blood 131 mg/dL (75-99)
[2019-08-17] MEDS: MUPIROCIN 2% OINT 22 GM TUBE NASAL SCH (21:32)
[2019-08-17 22:02] LABS: Glucose,Whole Blood 132 mg/dL (75-99)
[2019-08-17 22:54] LABS: African American GFR (CKD) >90 (>60 ml/min/1.73 sqM); Anion Gap 9 mmol/L; Blood Urea Nitrogen 15 mg/dL (7-17); Calcium 9.1 mg/dL (8.4-10.2); Carbon Dioxide 22 mmol/L (22-30); Chloride 107 mmol/L (98-107); Glucose 117 mg/dL (74-99); Non-African American GFR(CKD) >90 (>60 ml/min/1.73 sqM); Potassium 4.8 mmol/L (3.5-5.1); Sodium 138 mmol/L (137-145)
[2019-08-17] MEDS: HEPARIN SODIUM,PORCINE 5,000 UNIT/ML 1 ML VIAL SQ SCH (23:06)
--- NOTE | 2019-08-17 23:07 | CONS ---
CONSULTATION Mrs. Santamaria is a 64-year-old female who presented and underwent mitral valve repair by Dr. Madrigal. She is followed on a regular basis by Dr. Montero and has underwent cardiac catheterization on July 21 of this year. She was found to have no evidence of obstructive coronary artery disease with severe mitral regurgitation with significant mitral valve prolapse. She underwent surgical intervention today. She is intubated and sedated at this time. Her prior history is remarkable for history of paroxysmal atrial fibrillation. She has been on Eliquis in the past. She had a history of mitral valve prolapse, but has been progressing with a . Her prior surgical history remarkable for cholecystectomy, appendectomy and left mastectomy. MEDICATION: Prior to admission included tramadol, Diovan 80 mg daily, coenzyme Q10, simvastatin 40 mg daily, metoprolol tartrate 100 mg twice a day, Eliquis 5 mg twice a day, Arimidex. REVIEW OF SYSTEMS: Could not be obtained. PHYSICAL EXAMINATION: She is a 64-year-old female, intubated and sedated. Blood pressure 145/70 with a heart rate in the 60s. HEAD: Normocephalic. Eyes: Sclerae anicteric. Neck: Good carotid upstroke. No bruit. LUNGS: Clear to auscultation anteriorly. HEART: Regular rate and rhythm S1, S2. No S3. No rub appreciated. ABDOMEN: Soft, hypoactive bowel sounds. EXTREMITIES: No edema. IMPRESSION: 1. Status post mitral valve repair. 2. History of hypertension. 3. History of hyperlipidemia. 4. Paroxysmal atrial fibrillation. RECOMMENDATIONS: I am hoping that the patient will be weaned and extubated soon. Once that is done, then we will re-initiate her lipid-lowering agent as well as her beta moreno. She will be evaluated by Dr. Tafoya regarding her lung status and her ventilator. Thank you for this consult. We will follow with you. MMODL / IJN: [id number] /
[2019-08-17 23:20] LABS: Glucose,Whole Blood 126 mg/dL (75-99)
[2019-08-18] MEDS: HEPARIN SODIUM,PORCINE 5,000 UNIT/ML 1 ML VIAL SQ SCH ×4 (00:01→23:15)
[2019-08-18 00:08] LABS: Glucose,Whole Blood 128 mg/dL (75-99)
[2019-08-18 01:04] LABS: Glucose,Whole Blood 118 mg/dL (75-99)
[2019-08-18] MEDS: ESMOLOL IN SODIUM CHLORIDE PMX 2.5 GM in SALINE 1 250ML.BAG IV SCH (01:19)
[2019-08-18] MEDS ORDERED: HYDROcodone/APAP 5-325MG 1 EACH TAB PO PRN ×2 (01:57)
[2019-08-18 02:03] LABS: Glucose,Whole Blood 120 mg/dL (75-99)
[2019-08-18 03:07] LABS: Glucose,Whole Blood 127 mg/dL (75-99)
[2019-08-18 04:06] LABS: Glucose,Whole Blood 124 mg/dL (75-99)
[2019-08-18 04:27] LABS: Basophils % (A) 0 %; Eosinophils % (A) 0 %; HCT 25.6 % (34.0-46.0); HGB 8.5 gm/dL (11.4-16.0); Lymphocytes # (A) 1.5 k/uL (1.0-4.8); Lymphocytes % (A) 13 %; MCH 32.1 pg (25.0-35.0); MCHC 33.2 g/dL (31.0-37.0); MCV 96.7 fL (80.0-100.0); Monocytes # (A) 0.8 k/uL (0-1.0); Monocytes % (A) 7 %; Neutrophils # (A) 8.7 k/uL (1.3-7.7); Neutrophils % (A) 78 %; Platelet Count 111 k/uL (150-450); RBC 2.65 m/uL (3.80-5.40); RDW 13.5 % (11.5-15.5); WBC 11.1 k/uL (3.8-10.6)
[2019-08-18 04:35] LABS: Ionized Calcium 5.1 mg/dL (4.5-5.3)
[2019-08-18 04:42] LABS: ALT 21 U/L (4-34); AST 72 U/L (14-36); African American GFR (CKD) >90 (>60 ml/min/1.73 sqM); Albumin 3.3 g/dL (3.5-5.0); Alkaline Phosphatase 31 U/L (38-126); Anion Gap 10 mmol/L; Blood Urea Nitrogen 16 mg/dL (7-17); Calcium 8.8 mg/dL (8.4-10.2); Carbon Dioxide 23 mmol/L (22-30); Chloride 106 mmol/L (98-107); Glucose 111 mg/dL (74-99); Magnesium 2.3 mg/dL (1.6-2.3); Non-African American GFR(CKD) >90 (>60 ml/min/1.73 sqM); Potassium 4.8 mmol/L (3.5-5.1); Sodium 139 mmol/L (137-145); Total Bilirubin 1.1 mg/dL (0.2-1.3); Total Protein 5.1 g/dL (6.3-8.2)
[2019-08-18 05:10] LABS: Glucose,Whole Blood 128 mg/dL (75-99)
[2019-08-18] MEDS: ALBUMIN HUMAN 5% 250 ML in EMPTY BAG 1 BAG IVPB PRN (05:50)
--- NOTE | 2019-08-18 05:53 | OP ---
OPERATIVE REPORT DATE OF THE SURGERY: 08/17/2019. SURGEON: Dr. Keisha Madrigal. ASSISTANTS: 1. Dickson Tubbs. 2. Kvng Vazquez. 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 PROCEDURE: 1. Complex mitral valve repair with triangular resection of P2, closure of P2, P3 cleft, construction off 4 neochordae to A2, complete ring annuloplasty using a 34 mm Physio II ring. 2. Modified pulmonary vein isolation with a box lesion using radiofrequency bipolar clamp from [employer]. 3. Exclusion of the left atrial appendage using a 35 mm AtriClip. 4. Intraoperative transesophageal echocardiogram and epiaortic scanning. INDICATION FOR SURGERY: The patient is a 64-year-old lady with a known mitral valve prolapse who was complaining of increasing dyspnea on exertion. Workup included a VINOD and cardiac catheterization that showed normal coronary artery and evidence of a myxomatous mitral valve with flail P2 segment and severe mitral valve regurgitation. The patient had a Holter monitor that showed episodes of atrial fibrillation and she was on Eliquis. The patient is brought in today for elective mitral valve repair. The Eliquis has been stopped for around 60 hours. The STS risk was discussed with the nurse family they understood it and agreed to proceed. DESCRIPTION OF THE PROCEDURE: The patient in supine position in the preoperative holding area. Right internal jugular Chester-Lee catheter and right radial arterial line were placed. The patient's pulmonary pressure was 40/20. Cardiac index was 2.7. Subsequently, she was brought to the operating room where general endotracheal anesthesia was induced uneventfully. A Soni catheter was inserted. The chest, abdomen and both lower extremities were prepped and draped using ChloraPrep. Ioban was used to cover the skin. Patient received 2 grams of cefazolin intravenously. Transesophageal echocardiogram confirmed the preoperative finding of a myxomatous mitral valve and a flail P2 segment with severe anteriorly directed jet of mitral valve regurgitation. There were no clots in the left atrial appendage. The left ventricular function was overall preserved. A midline sternotomy was performed and the bone was mildly osteoporotic. The right pleura was unintentionally opened in this process and was drained with a 19- Macanese Bruno drain. The Dodie mitral valve retractor was used. Epiaortic scanning at this point revealed normal ascending aorta. Pericardium was opened in an inverted T- fashion and a pericardial cradle was created. Findings included a normal soft aorta and a normal-sized heart. After systemic heparinization, after placement of respective pledgeted pursestring, aortic cannulation in the proximal arch with a 21-Macanese soft flow cannula, direct SVC cannulation with a 28-Macanese right angle cannula and IVC cannulation at the junction with the right atrium with a 30-Macanese straight cannula was performed. Antegrade as well as retrograde cardioplegia catheters were placed. Cardiopulmonary bypass was initiated. The patient temperature was allowed to drift down to 34 degrees Celsius. Dissection around the right pulmonary vein was performed. However, we had difficulty passing the clamp and for that reason, I elected to stop the heart. The aorta was clamped and myocardial protection was achieved on initial dose of 700 mL of antegrade cold blood cardioplegia followed by 300 mL of retrograde cold blood cardioplegia. All subsequent doses were given retrograde at 15-20 minutes intervals. At this point, we completed the right pulmonary vein encircling and a radiofrequency bipolar clamp from AtriCure was used to perform 3 ablation at the level of the antrum of the vein after dissecting the interatrial groove. On the left side, the ligament of Palomo was incised with a Bovie, and the left-sided pulmonary vein were encircled and 3 ablations also at the level of the antrum of the pulmonary vein using the radiofrequency bipolar clamp were performed. Subsequently, I made an opening in the tip of the left atrial appendage and one arm of the clamp was passed into the orifice of the left superior pulmonary vein and 3 ablations were performed at that level. Subsequently, the left atrial appendage was excluded using a 35 mm AtriClip. As an adjunct, I closed opening in the tip of the left atrium with a pledgeted 4-0 Prolene. The left atrium was opened in its standard transverse fashion and the Dodie retractor provided excellent visualization. At this point, I completed the box lesion with 3 ablations at the level of the floor of the left atrium connecting both pulmonary vein encircling lesions and another one at the level of the dome of the left atrium also connecting both encircling lesions. Attention was moved at this point at the mitral valve repair part. I started by placing 13 annuloplasty sutures using a non pledgeted Tycron tool. That provided excellent exposure of the mitral at this point with no redundancy. The valve was myxomatous. All the chords were thinned out and diminutive. There were 2 chords at the tip of the P2 that were ruptured. There was excess tissue. The P2 height was around 1.5 cm. I started by identifying normal chords on either side of the ruptured chord segment and they were encircled with silk 2-0. That provided the obvious segment that needed to be resected and a triangular resection of P2 incorporating the flail segment was performed. There was plenty of tissue with no tension and the remaining P2 segments were approximated using Prolene 5-0 starting at the level of the edge of the leaflet and working our way to the anulus in 2 layers and the suture was at the level of the anulus. Testing at this point revealed excellent seal. The surface area of the whole mitral valve was measured and it corresponded to a 34 mm Physio II ring. That was selected to avoid any potential MANNY. The previously placed annuloplasty sutures were passed symmetrically into the ring which seated nicely. The needles were cut and the suture tied using the Cor-Knot device. Testing at this point revealed overriding A2. It was evident that we needed to support that segment. I used Reagan-Hal 4-0 to pass one pair of chord to the anterior papillary muscle and passed into the part of A2 towards A1 over and over. Another 4-0 Reagan-Hal was used to form another pair of chords at the posterior papillary muscle and passed on the A-2 segment towards A3. Adjustment was made as we were testing the valve for tension. There appeared to be some leak around the cleft between P2 and P3, and for that reason, I took a Prolene 5-0 and approximated those segments nicely and testing at this point revealed very trivial leak by the posterior commissure and an additional commissure plastic suture was placed. That revealed excellent seal. CO2 was flowing over the field as long as the left atrium was opened. Rewarming was started as we closed the left atrium in one layer using Prolene 2-0 pledgeted on each corner and meeting in the midline. Before closing the left atrium, we proceeded with some de-airing maneuver. We had given around 800 mL of warm blood retrograde as we were closing the atrium. The patient was given lidocaine and magnesium. Head was placed in Trendelenburg position. An aortic root vent was at maximum. De-airing maneuvers were done also. Subsequently, we unclamped the aorta with aortic root vent on maximum. Patient regained initially a VFib rhythm that required one single defibrillation that uncovered an accelerated junctional rhythm. Two monopolar atrial pacing wires were affixed to the respective pursestrings of the retrograde and the other one was affixed to the tip of the right atrial appendage. The ventricular pacing wire was initially driven via the inferior aspect of the right ventricle. However, the entry point was bleeding and for that reason, it was removed and the entry point closed using Prolene 6-0 reinforced by the pericardial pledget on one side and a felt pledget on the other side. The ventricular pacing wires were eventually affixed to the anterior aspect of the right ventricle with two silk 6-0 sutures. After a period of reperfusion of around minutes, we proceeded de- airing. We required an 18-gauge needle in the apex of the left ventricle to help in de- airing as there was a lot of air in the ventricle. Once we were satisfied with de- airing, we slowly weaned off cardioplegia bypass. Initially we were atrially paced at 100 to override PACs. The weaning off cardioplegia bypass proceeded without the need of any inotropic or vasopressor support. VINOD at this point revealed excellent seal of the mitral valve with no mitral stenosis and no MANNY. There was no air. The left atrial appendage was adequately excluded. With that test dose protamine was given. All suckers were stopped before we decannulated the venous and retrograde and the vent sites as well as antegrade. Protamine was started and we removed the aortic cannula. The site required reinforcement with Prolene 3-0 nonpledgeted. Two 19-Macanese Bruno drains were left substernally. The left pleura was grossly intact. Pericardial fat was approximated over the heart. The apical de-airing site was not bleeding and did not require stitch. After ensuring adequate hemostasis and hemodynamic and after correct sponge, instrument, and needle count, the bone was approximated using 5 [id number] [place] cable after interposing Fibrillar between the sternal edges. Thorough irrigation with cefazolin followed. The rest of the closure proceeded in layers. Skin glue was applied. The patient did not receive any blood bank product but received 400 mL of Cell Saver blood. She was transferred to the ICU in stable condition on no drips with a PA pressure of 31/15, normal sinus rhythm at 82, CVP of 10, and cardiac index of 3. MMCHATA / CARMENCITAN: [id number] / [facility]
[2019-08-18] MEDS: KETOROLAC 30 MG/ML 1 ML VIAL IVP SCH ×4 (05:54→23:15)
[2019-08-18 06:05] LABS: Glucose,Whole Blood 127 mg/dL (75-99)
[2019-08-18 07:01] LABS: Glucose,Whole Blood 124 mg/dL (75-99)
[2019-08-18] MEDS ORDERED: ADENOSINE 3 MG/ML 2 ML VIAL IVP STA (07:22)
[2019-08-18] MEDS ORDERED: FUROSEMIDE 10 MG/ML 2 ML VIAL IV ONE (07:51)
--- NOTE | 2019-08-18 07:53 | XR ---
EXAMINATION TYPE: XR chest 1V portable DATE OF EXAM: 08/18/2019 COMPARISON: 08/17/2019 HISTORY: Postop TECHNIQUE: Single frontal view of the chest is obtained. FINDINGS: [place]wood-Lee catheter overlies proximal pulmonary outflow tract. Postoperative changes are no michelle. Correlate for previous cardiac valve surgery. ET and NG tube have been removed. Bilateral pleura l effusion and chest tube noted. No sizable pneumothorax. Diffuse interstitial pattern. Stable border line cardiomegaly. IMPRESSION: Postoperative changes correlate for mild venous congestion and CHF.
[2019-08-18 08:22] LABS: Glucose,Whole Blood 126 mg/dL (75-99)
--- NOTE | 2019-08-18 08:29 | PN ---
PROGRESS NOTE PULMONARY/CRITICAL CARE PROGRESS NOTE: CRITICAL CARE TIME: 31 minutes. This 64-year-old female with history of arthritis, mitral valve prolapse, paroxysmal atrial fibrillation, breast cancer, status post left mastectomy, who was referred because of mitral valve disease and potential mitral valve repair. This was done yesterday by Dr. Madrigal. She had a modified Maze procedure as well. She also had an intraoperative transesophageal echocardiogram. The patient is postop day #1. She is doing well. She was extubated 5 hours and 20 minutes after leaving the operating room. She is currently on 3 L nasal cannula. She is getting LR at 50 mL an hour, insulin at 2 units an hour and esmolol at 50 mcg/kg per minute. This is because of elevated heart rate. Currently doing reasonably well. Only getting about 500 mL on the incentive spirometer. PHYSICAL EXAMINATION: VITAL SIGNS: Current vital signs are reviewed. Her temperature is not recorded. Heart rate 120, respiratory rate 18, blood pressure 102/72. Her PAP was 31/10. Her CVP was 7 and her saturations are 96% on 3 L. GENERAL: Appears in no acute distress. Not taking deep breaths. HEENT: Examination is grossly unremarkable. Nasal O2 in place. NECK: Supple. Full range of motion. No adenopathy or thyromegaly. Neck veins are flat. CARDIOVASCULAR: Examination reveals tachycardia. Heart rate 120. S1, S2 normal. LUNGS: Reveal coarse rhonchi bilaterally. She does not take deep breaths. No wheezes. A few scattered crackles. ABDOMEN: Soft, but obese. EXTREMITIES: Are intact. No cyanosis, clubbing, or edema. SKIN: Without rash. NEUROLOGIC: Examination is brief but nonfocal. LABS: White count 11.1, hemoglobin 8.5, hematocrit 25.6, platelet count 111,000. Sodium, potassium, chloride, CO2 all normal. Anion gap is 10. BUN and creatinine were 16 and 0.65. Albumin 3.3. Chest x-ray shows a touch of fluid overload. Microbiologic studies are negative. MEDICATIONS: Medications are reviewed. ASSESSMENT: 1. Postoperative day #1, status post mitral valve repair, intraoperative transesophageal echocardiogram, modified Maze procedure and left atrial appendage excision, for mitral valve disease. 2. Routine postoperative ventilator management with extubation at 5 hours and 20 minutes after leaving the operating room. 3. Paroxysmal atrial fibrillation. 4. Hyperlipidemia. 5. Lifetime nontobacco user. PLAN: The patient was extubated less than 6 hours after leaving the operating room. She is currently on insulin drip at 2 units an hour, esmolol at 50 mcg/kg per minute because of tachycardia. She is also receiving lactated Ringer's at 50 mL an hour. She has been weaned down to 3 L nasal cannula. We encourage deep breathing, coughing, clearing of secretions. Chest x-ray to me looks a little fluid overloaded. I have mentioned that to the cardiothoracic personnel security assistant. Maybe she would benefit from some diuretic. Continue updrafts. Prognosis is good. CRITICAL CARE TIME: 31 minutes. EMANI / CELESTE: [id number] /
[2019-08-18] MEDS: CLOPIDOGREL 75 MG TAB PO SCH (08:32)
[2019-08-18] MEDS: ATORVASTATIN 40 MG TAB PO SCH (08:32)
[2019-08-18] MEDS: COLCHICINE 0.6 MG EACH PO SCH ×2 (08:32→20:15)
[2019-08-18] MEDS: ASPIRIN 325 MG TAB PO SCH (08:32)
[2019-08-18] MEDS: MULTIVITAMINS, THERA 1 EACH TAB PO SCH (08:32)
[2019-08-18] MEDS: CHOLECALCIFEROL 1,000 UNIT TAB PO SCH (08:33)
[2019-08-18] MEDS: AMIODARONE 200 MG TAB PO SCH ×2 (08:33→20:14)
[2019-08-18] MEDS: MUPIROCIN 2% OINT 22 GM TUBE NASAL SCH ×2 (08:33→20:16)
[2019-08-18] MEDS: HYDROcodone/APAP 7.5-325MG 1 EACH TAB PO PRN ×4 (08:48→20:14)
[2019-08-18] MEDS: ONDANSETRON 4 MG/2 ML VIAL IVP PRN ×2 (08:57→16:59)
[2019-08-18] MEDS ORDERED: PANTOPRAZOLE 40 MG/10 ML VIAL IVP SCH (09:00)
[2019-08-18] MEDS ORDERED: MAGNESIUM HYDROXIDE 2,400 MG/10 ML CUP PO PRN (09:00)
[2019-08-18] MEDS ORDERED: BISACODYL 10 MG SUPP RECTAL PRN (09:00)
[2019-08-18] MEDS ORDERED: METOPROLOL TARTRATE 12.5 MG TAB PO SCH (09:00)
[2019-08-18] MEDS ORDERED: METOPROLOL TARTRATE 25 MG TAB PO SCH (09:00)
--- NOTE | 2019-08-18 09:08 | P.PN ---
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 Previous medical history of paroxysmal atrial fibrillation on Eliquis for anticoagulation, hypertension, hyperlipidemia, arthritis, breast cancer within the last 5 years status post left mastectomy without radiation currently on Arimadex. POD #1 complex mitral valve repair with triangular resection of P2, closure of P2, P3 cleft, construction all for radial cord to A2, complete ring annuloplasty using a 34 mm physio-2 ring. Modified pulmonary vein isolation with a box [facility] Exclusion of the left atrial appendage using a 35 mm after clip. Intraoperative transesophageal echocardiogram and epi-aortic scanning. Postoperative acute blood loss anemia, expected outcome of surgery given hemodilution and cardiopulmonary bypass pump. Postoperative atrial tachycardia, expected Patient's currently sitting up in a recliner in no acute distress, successfully extubated last night at 1940. Does complain of post surgical type pain, denies shortness of breath. She did have tachycardia and hypotension last night in the intensive care unit, was given IV Lopressor as well as IV adenosine which did sl ow her heart rate for a short amount of time revealing sinus rhythm. Heart rate did elevated again and she was placed on an esmolol continuous infusion. This morning she was still tachycardic in the 117-119 range, was given adenosine with heart rate now in the 70s. Blood pressure dropped initially, but is now currently normotensive. Esmolol has been shut off and the patient has been started on oral amiodarone. Patient is on no other pressors or inotropes, and currently hemodynamically stable. Mediastinal and right pleural chest tubes, [place]ordis, left radial arterial line remains present. No other new concerns. Objective - Vital Signs Vital signs: Vital Signs Temp 96.4 F L 08/17/19 16:00 Pulse 120 H 08/18/19 07:00 Resp 18 08/18/19 07:00 BP 97/65 08/18/19 07:00 Pulse Ox 96 08/18/19 07:00 Intake & Output 08/17/19 08/18/19 08/18/19 18:59 06:59 18:59 Intake Total 706.551 4663.638 90.827 Output Total 1975 833 55 Balance -1434.934 875.638 35.827 Weight 93.7 kg Intake: IV 527 894 60 CO/CI 100 220 Lactated Ringers 1,000 ml 250 580 50 @ 20 mls/hr IV .Q24H JC Rx#:[id number] Pressure Bags 45 94 10 Intake, IV Titration 13.066 414.638 30.827 Amount Esmolol in Sodium 390.870 27.09 Chloride Pmx 2.5 gm In Saline 1 250ml.bag @ 25 MCG/KG/MIN 12.9 mls/hr IV .[id number] JC Rx#: [id number] Insulin Regular 100 unit 2.23 23.768 3.737 In Sodium Chloride 0.9% 100 ml @ Per Protocol IV .Q0M JC Rx#:[id number] Propofol 1,000 mg In 10.836 Empty Bag 1 bag @ Titrate IV .Q0M JC Rx#: [id number] Oral 400 Output: Chest Tube Drainage 215 383 30 Mediastinal 200 172 10 Right Pleural 15 211 20 Urine 760 450 25 Estimated Blood Loss 1000 Other: Voiding Method Indwelling Catheter Indwelling Catheter ABP, PAP, CO, CI - Last Documented Arterial Blood Pressure 117/60 Pulmonary Artery Pressure 31/10 Cardiac Output 5.3 Cardiac Index 2.9 - Constitutional General appearance: Present: cooperative, no acute distress, obese - Respiratory Details: Lungs sounds diminished bilaterally. Respirations even, nonlabored. Currently on 3 L nasal cannula with oxygen saturation 97%. Able to achieve 500 mL on her incentive spirometry. Weak cough. Mediastinal chest tubes to continuous wall suction, 110 mL serosanguineous drainage overnight, 400 mL since surgery, no air leak present. Right pleural chest tube to continuous wall suction, 170 mL serosanguineous drainage overnight, 250 mL since surgery, no air leak present. - Cardiovascular Details: S1, S2 present. Regular rate and rhythm, sinus rhythm on telemetry, previously atrial tachycardia. Sternum stable. A/50 epicardial pacemaker wires present, connected to generator, DDD mode with backup rate 60 bpm. Palpable peripheral pulses bilaterally. No edema present. No calf pain or tenderness noted. Right internal jugular [place]/Cordis, left radial arterial line present. Last CO/CI 4.5/2.4 on no inotropes or pressors. Heart hugger in place with patient demonstrating appropriate use. Antiembolism stockings, SCDs present. - Gastrointestinal Gastrointestinal Comment(s): Abdomen soft, nontender, nondistended. Hypoactive bowel sounds present 4 quadrants. Tolerating clear liquids. Negative flatus. - Genitourinary Genitourinary Comment(s): Soni present draining clear, yellow urine. Output 30-50 mL per hour overnight. - Integumentary Integumentary Comment(s): Skin is warm and dry with evidence of diffusion. Anterior chest incision well approximated and covered with dry intact dressing. - Neurologic Neurologic: Present: CNII-XII intact - Musculoskeletal Musculoskeletal: Present: gait normal, strength equal bilaterally - Psychiatric Psychiatric: Present: A&O x's 3, appropriate affect, intact judgment & insight - Allied health notes Allied health notes reviewed: nursing - Labs CBC & Chem 7: 08/18/19 04:00 08/18/19 04:00 Labs: Abnormal Lab Results - Last 24 Hours (Table) 08/12/19 08/17/19 08/17/19 Range/Units 09:05 08:50 09:41 WBC (3.8-10.6) k/uL RBC (3.80-5.40) m/uL Hgb (11.4-16.0) gm/dL Hct (34.0-46.0) % Plt Count (150-450) k/uL Neutrophils # (1.3-7.7) k/uL Lymphocytes # (1.0-4.8) k/uL PT (9.0-12.0) sec INR (<1.2) APTT (22.0-30.0) sec ABG pH (7.35-7.45) ABG pCO2 (35-45) mmHg ABG pO2 193 H 210 H (83-108) mmHg ABG HCO3 26 H (21-25) mmol/L ABG Total CO2 27 H 27 H (19-24) mmol/L ABG O2 Saturation 99.9 H 99.9 H (94-97) % ABG Hematocrit 32 L (34.0-46.0) % ABG Sodium (135-146) mmol/L ABG Potassium (3.4-4.5) mmol/L ABG Ionized Calcium (4.5-5.3) mg/dL ABG Glucose 106 H 125 H (75-99) mg/dL ABG Lactic Acid 2.8 H* 3.0 H* (0.5-1.6) mmol/L Hemoglobin 10.4 L (11.4-16.0) gm/dL Glucose (74-99) mg/dL POC Glucose (mg/dL) (75-99) mg/dL Calcium (8.4-10.2) mg/dL Magnesium (1.6-2.3) mg/dL AST (14-36) U/L Alkaline Phosphatase (38-126) U/L Total Protein (6.3-8.2) g/dL Albumin (3.5-5.0) g/dL Arterial Blood Potassium (3.4-4.5) mmol/L Arterial Blood Glucose 106 H 125 H (75-99) mg/dL Crossmatch See Detail 08/17/19 08/17/19 08/17/19 Range/Units 10:13 10:46 11:18 WBC (3.8-10.6) k/uL RBC (3.80-5.40) m/uL Hgb (11.4-16.0) gm/dL Hct (34.0-46.0) % Plt Count (150-450) k/uL Neutrophils # (1.3-7.7) k/uL Lymphocytes # (1.0-4.8) k/uL PT (9.0-12.0) sec INR (<1.2) APTT (22.0-30.0) sec ABG pH 7.34 L (7.35-7.45) ABG pCO2 (35-45) mmHg ABG pO2 415 H 301 H 396 H (83-108) mmHg ABG HCO3 26 H (21-25) mmol/L ABG Total CO2 25 H 27 H (19-24) mmol/L ABG O2 Saturation 100.0 H 100.0 H 100.0 H (94-97) % ABG Hematocrit 23 L 23 L 22 L (34.0-46.0) % ABG Sodium 132 L 134 L (135-146) mmol/L ABG Potassium 4.6 H (3.4-4.5) mmol/L ABG Ionized Calcium 4.1 L 4.4 L 4.3 L (4.5-5.3) mg/dL ABG Glucose 132 H 224 H 226 H (75-99) mg/dL ABG Lactic Acid 2.6 H* 3.5 H* 3.4 H* (0.5-1.6) mmol/L Hemoglobin 7.6 L 7.5 L 7.2 L (11.4-16.0) gm/dL Glucose (74-99) mg/dL POC Glucose (mg/dL) (75-99) mg/dL Calcium (8.4-10.2) mg/dL Magnesium (1.6-2.3) mg/dL AST (14-36) U/L Alkaline Phosphatase (38-126) U/L Total Protein (6.3-8.2) g/dL Albumin (3.5-5.0) g/dL Arterial Blood Potassium 4.6 H (3.4-4.5) mmol/L Arterial Blood Glucose 132 H 224 H 226 H (75-99) mg/dL Crossmatch 08/17/19 08/17/19 08/17/19 Range/Units 11:46 12:22 13:34 WBC (3.8-10.6) k/uL RBC (3.80-5.40) m/uL Hgb (11.4-16.0) gm/dL Hct (34.0-46.0) % Plt Count (150-450) k/uL Neutrophils # (1.3-7.7) k/uL Lymphocytes # (1.0-4.8) k/uL PT (9.0-12.0) sec INR (<1.2) APTT (22.0-30.0) sec ABG pH (7.35-7.45) ABG pCO2 (35-45) mmHg ABG pO2 393 H 380 H 348 H (83-108) mmHg ABG HCO3 (21-25) mmol/L ABG Total CO2 27 H 25 H (19-24) mmol/L ABG O2 Saturation 100.0 H 100.0 H 100.0 H (94-97) % ABG Hematocrit 22 L 21 L 30 L (34.0-46.0) % ABG Sodium (135-146) mmol/L ABG Potassium (3.4-4.5) mmol/L ABG Ionized Calcium 4.3 L 4.3 L (4.5-5.3) mg/dL ABG Glucose 202 H 186 H 136 H (75-99) mg/dL ABG Lactic Acid 4.0 H* 5.6 H* 4.6 H* (0.5-1.6) mmol/L Hemoglobin 7.1 L 6.8 L* 9.7 L (11.4-16.0) gm/dL Glucose (74-99) mg/dL POC Glucose (mg/dL) (75-99) mg/dL Calcium (8.4-10.2) mg/dL Magnesium (1.6-2.3) mg/dL AST (14-36) U/L Alkaline Phosphatase (38-126) U/L Total Protein (6.3-8.2) g/dL Albumin (3.5-5.0) g/dL Arterial Blood Potassium (3.4-4.5) mmol/L Arterial Blood Glucose 202 H 186 H 136 H (75-99) mg/dL Crossmatch 08/17/19 08/17/19 08/17/19 Range/Units 14:35 14:35 14:35 WBC 13.3 H (3.8-10.6) k/uL RBC 2.90 L (3.80-5.40) m/uL Hgb 9.4 L D (11.4-16.0) gm/dL Hct 28.1 L (34.0-46.0) % Plt Count 111 L D (150-450) k/uL Neutrophils # 11.1 H (1.3-7.7) k/uL Lymphocytes # (1.0-4.8) k/uL PT 13.2 H (9.0-12.0) sec INR 1.3 H (<1.2) APTT 43.7 H (22.0-30.0) sec ABG pH (7.35-7.45) ABG pCO2 (35-45) mmHg ABG pO2 (83-108) mmHg ABG HCO3 (21-25) mmol/L ABG Total CO2 (19-24) mmol/L ABG O2 Saturation (94-97) % ABG Hematocrit (34.0-46.0) % ABG Sodium (135-146) mmol/L ABG Potassium (3.4-4.5) mmol/L ABG Ionized Calcium (4.5-5.3) mg/dL ABG Glucose (75-99) mg/dL ABG Lactic Acid (0.5-1.6) mmol/L Hemoglobin (11.4-16.0) gm/dL Glucose (74-99) mg/dL POC Glucose (mg/dL) (75-99) mg/dL Calcium 8.2 L (8.4-10.2) mg/dL Magnesium 2.7 H (1.6-2.3) mg/dL AST 60 H (14-36) U/L Alkaline Phosphatase 30 L (38-126) U/L Total Protein 5.0 L (6.3-8.2) g/dL Albumin 3.1 L (3.5-5.0) g/dL Arterial Blood Potassium (3.4-4.5) mmol/L Arterial Blood Glucose (75-99) mg/dL Crossmatch 08/17/19 08/17/19 08/17/19 Range/Units 15:09 15:24 17:09 WBC (3.8-10.6) k/uL RBC (3.80-5.40) m/uL Hgb (11.4-16.0) gm/dL Hct (34.0-46.0) % Plt Count (150-450) k/uL Neutrophils # (1.3-7.7) k/uL Lymphocytes # (1.0-4.8) k/uL PT (9.0-12.0) sec INR (<1.2) APTT (22.0-30.0) sec ABG pH 7.29 L (7.35-7.45) ABG pCO2 52 H (35-45) mmHg ABG pO2 298 H (83-108) mmHg ABG HCO3 (21-25) mmol/L ABG Total CO2 27 H (19-24) mmol/L ABG O2 Saturation 100.0 H (94-97) % ABG Hematocrit (34.0-46.0) % ABG Sodium (135-146) mmol/L ABG Potassium (3.4-4.5) mmol/L ABG Ionized Calcium (4.5-5.3) mg/dL ABG Glucose (75-99) mg/dL ABG Lactic Acid (0.5-1.6) mmol/L Hemoglobin (11.4-16.0) gm/dL Glucose (74-99) mg/dL POC Glucose (mg/dL) 105 H 174 H (75-99) mg/dL Calcium (8.4-10.2) mg/dL Magnesium (1.6-2.3) mg/dL AST (14-36) U/L Alkaline Phosphatase (38-126) U/L Total Protein (6.3-8.2) g/dL Albumin (3.5-5.0) g/dL Arterial Blood Potassium (3.4-4.5) mmol/L Arterial Blood Glucose (75-99) mg/dL Crossmatch 08/17/19 08/17/19 08/17/19 Range/Units 17:15 18:08 19:09 WBC 16.3 H (3.8-10.6) k/uL RBC 3.03 L (3.80-5.40) m/uL Hgb 9.8 L (11.4-16.0) gm/dL Hct 29.5 L (34.0-46.0) % Plt Count 133 L (150-450) k/uL Neutrophils # 14.1 H (1.3-7.7) k/uL Lymphocytes # (1.0-4.8) k/uL PT (9.0-12.0) sec INR (<1.2) APTT (22.0-30.0) sec ABG pH (7.35-7.45) ABG pCO2 (35-45) mmHg ABG pO2 (83-108) mmHg ABG HCO3 (21-25) mmol/L ABG Total CO2 (19-24) mmol/L ABG O2 Saturation (94-97) % ABG Hematocrit (34.0-46.0) % ABG Sodium (135-146) mmol/L ABG Potassium (3.4-4.5) mmol/L ABG Ionized Calcium (4.5-5.3) mg/dL ABG Glucose (75-99) mg/dL ABG Lactic Acid (0.5-1.6) mmol/L Hemoglobin (11.4-16.0) gm/dL Glucose (74-99) mg/dL POC Glucose (mg/dL) 166 H 152 H (75-99) mg/dL Calcium (8.4-10.2) mg/dL Magnesium (1.6-2.3) mg/dL AST (14-36) U/L Alkaline Phosphatase (38-126) U/L Total Protein (6.3-8.2) g/dL Albumin (3.5-5.0) g/dL Arterial Blood Potassium (3.4-4.5) mmol/L Arterial Blood Glucose (75-99) mg/dL Crossmatch 08/17/19 08/17/19 08/17/19 Range/Units 19:14 20:08 20:09 WBC 12.1 H (3.8-10.6) k/uL RBC 2.85 L (3.80-5.40) m/uL Hgb 9.2 L (11.4-16.0) gm/dL Hct 27.9 L (34.0-46.0) % Plt Count 119 L (150-450) k/uL Neutrophils # 10.6 H (1.3-7.7) k/uL Lymphocytes # 0.8 L (1.0-4.8) k/uL PT (9.0-12.0) sec INR (<1.2) APTT (22.0-30.0) sec ABG pH 7.34 L (7.35-7.45) ABG pCO2 (35-45) mmHg ABG pO2 155 H (83-108) mmHg ABG HCO3 (21-25) mmol/L ABG Total CO2 (19-24) mmol/L ABG O2 Saturation 99.7 H (94-97) % ABG Hematocrit (34.0-46.0) % ABG Sodium (135-146) mmol/L ABG Potassium (3.4-4.5) mmol/L ABG Ionized Calcium (4.5-5.3) mg/dL ABG Glucose (75-99) mg/dL ABG Lactic Acid (0.5-1.6) mmol/L Hemoglobin (11.4-16.0) gm/dL Glucose (74-99) mg/dL POC Glucose (mg/dL) 147 H (75-99) mg/dL Calcium (8.4-10.2) mg/dL Magnesium (1.6-2.3) mg/dL AST (14-36) U/L Alkaline Phosphatase (38-126) U/L Total Protein (6.3-8.2) g/dL Albumin (3.5-5.0) g/dL Arterial Blood Potassium (3.4-4.5) mmol/L Arterial Blood Glucose (75-99) mg/dL Crossmatch 08/17/19 08/17/19 08/17/19 Range/Units 21:06 22:00 22:01 WBC (3.8-10.6) k/uL RBC (3.80-5.40) m/uL Hgb (11.4-16.0) gm/dL Hct (34.0-46.0) % Plt Count (150-450) k/uL Neutrophils # (1.3-7.7) k/uL Lymphocytes # (1.0-4.8) k/uL PT (9.0-12.0) sec INR (<1.2) APTT (22.0-30.0) sec ABG pH (7.35-7.45) ABG pCO2 (35-45) mmHg ABG pO2 (83-108) mmHg ABG HCO3 (21-25) mmol/L ABG Total CO2 (19-24) mmol/L ABG O2 Saturation (94-97) % ABG Hematocrit (34.0-46.0) % ABG Sodium (135-146) mmol/L ABG Potassium (3.4-4.5) mmol/L ABG Ionized Calcium (4.5-5.3) mg/dL ABG Glucose (75-99) mg/dL ABG Lactic Acid (0.5-1.6) mmol/L Hemoglobin (11.4-16.0) gm/dL Glucose 117 H (74-99) mg/dL POC Glucose (mg/dL) 131 H 132 H (75-99) mg/dL Calcium (8.4-10.2) mg/dL Magnesium (1.6-2.3) mg/dL AST (14-36) U/L Alkaline Phosphatase (38-126) U/L Total Protein (6.3-8.2) g/dL Albumin (3.5-5.0) g/dL Arterial Blood Potassium (3.4-4.5) mmol/L Arterial Blood Glucose (75-99) mg/dL Crossmatch 08/17/19 08/18/19 08/18/19 Range/Units 23:13 00:07 01:02 WBC (3.8-10.6) k/uL RBC (3.80-5.40) m/uL Hgb (11.4-16.0) gm/dL Hct (34.0-46.0) % Plt Count (150-450) k/uL Neutrophils # (1.3-7.7) k/uL Lymphocytes # (1.0-4.8) k/uL PT (9.0-12.0) sec INR (<1.2) APTT (22.0-30.0) sec ABG pH (7.35-7.45) ABG pCO2 (35-45) mmHg ABG pO2 (83-108) mmHg ABG HCO3 (21-25) mmol/L ABG Total CO2 (19-24) mmol/L ABG O2 Saturation (94-97) % ABG Hematocrit (34.0-46.0) % ABG Sodium (135-146) mmol/L ABG Potassium (3.4-4.5) mmol/L ABG Ionized Calcium (4.5-5.3) mg/dL ABG Glucose (75-99) mg/dL ABG Lactic Acid (0.5-1.6) mmol/L Hemoglobin (11.4-16.0) gm/dL Glucose (74-99) mg/dL POC Glucose (mg/dL) 126 H 128 H 118 H (75-99) mg/dL Calcium (8.4-10.2) mg/dL Magnesium (1.6-2.3) mg/dL AST (14-36) U/L Alkaline Phosphatase (38-126) U/L Total Protein (6.3-8.2) g/dL Albumin (3.5-5.0) g/dL Arterial Blood Potassium (3.4-4.5) mmol/L Arterial Blood Glucose (75-99) mg/dL Crossmatch 08/18/19 08/18/19 08/18/19 Range/Units 02:02 03:05 04:00 WBC 11.1 H (3.8-10.6) k/uL RBC 2.65 L (3.80-5.40) m/uL Hgb 8.5 L (11.4-16.0) gm/dL Hct 25.6 L (34.0-46.0) % Plt Count 111 L (150-450) k/uL Neutrophils # 8.7 H (1.3-7.7) k/uL Lymphocytes # (1.0-4.8) k/uL PT (9.0-12.0) sec INR (<1.2) APTT (22.0-30.0) sec ABG pH (7.35-7.45) ABG pCO2 (35-45) mmHg ABG pO2 (83-108) mmHg ABG HCO3 (21-25) mmol/L ABG Total CO2 (19-24) mmol/L ABG O2 Saturation (94-97) % ABG Hematocrit (34.0-46.0) % ABG Sodium (135-146) mmol/L ABG Potassium (3.4-4.5) mmol/L ABG Ionized Calcium (4.5-5.3) mg/dL ABG Glucose (75-99) mg/dL ABG Lactic Acid (0.5-1.6) mmol/L Hemoglobin (11.4-16.0) gm/dL Glucose (74-99) mg/dL POC Glucose (mg/dL) 120 H 127 H (75-99) mg/dL Calcium (8.4-10.2) mg/dL Magnesium (1.6-2.3) mg/dL AST (14-36) U/L Alkaline Phosphatase (38-126) U/L Total Protein (6.3-8.2) g/dL Albumin (3.5-5.0) g/dL Arterial Blood Potassium (3.4-4.5) mmol/L Arterial Blood Glucose (75-99) mg/dL Crossmatch 08/18/19 08/18/19 08/18/19 Range/Units 04:00 04:05 05:09 WBC (3.8-10.6) k/uL RBC (3.80-5.40) m/uL Hgb (11.4-16.0) gm/dL Hct (34.0-46.0) % Plt Count (150-450) k/uL Neutrophils # (1.3-7.7) k/uL Lymphocytes # (1.0-4.8) k/uL PT (9.0-12.0) sec INR (<1.2) APTT (22.0-30.0) sec ABG pH (7.35-7.45) ABG pCO2 (35-45) mmHg ABG pO2 (83-108) mmHg ABG HCO3 (21-25) mmol/L ABG Total CO2 (19-24) mmol/L ABG O2 Saturation (94-97) % ABG Hematocrit (34.0-46.0) % ABG Sodium (135-146) mmol/L ABG Potassium (3.4-4.5) mmol/L ABG Ionized Calcium (4.5-5.3) mg/dL ABG Glucose (75-99) mg/dL ABG Lactic Acid (0.5-1.6) mmol/L Hemoglobin (11.4-16.0) gm/dL Glucose 111 H (74-99) mg/dL POC Glucose (mg/dL) 124 H 128 H (75-99) mg/dL Calcium (8.4-10.2) mg/dL Magnesium (1.6-2.3) mg/dL AST 72 H (14-36) U/L Alkaline Phosphatase 31 L (38-126) U/L Total Protein 5.1 L (6.3-8.2) g/dL Albumin 3.3 L (3.5-5.0) g/dL Arterial Blood Potassium (3.4-4.5) mmol/L Arterial Blood Glucose (75-99) mg/dL Crossmatch 08/18/19 08/18/19 08/18/19 Range/Units 06:04 07:00 08:20 WBC (3.8-10.6) k/uL RBC (3.80-5.40) m/uL Hgb (11.4-16.0) gm/dL Hct (34.0-46.0) % Plt Count (150-450) k/uL Neutrophils # (1.3-7.7) k/uL Lymphocytes # (1.0-4.8) k/uL PT (9.0-12.0) sec INR (<1.2) APTT (22.0-30.0) sec ABG pH (7.35-7.45) ABG pCO2 (35-45) mmHg ABG pO2 (83-108) mmHg ABG HCO3 (21-25) mmol/L ABG Total CO2 (19-24) mmol/L ABG O2 Saturation (94-97) % ABG Hematocrit (34.0-46.0) % ABG Sodium (135-146) mmol/L ABG Potassium (3.4-4.5) mmol/L ABG Ionized Calcium (4.5-5.3) mg/dL ABG Glucose (75-99) mg/dL ABG Lactic Acid (0.5-1.6) mmol/L Hemoglobin (11.4-16.0) gm/dL Glucose (74-99) mg/dL POC Glucose (mg/dL) 127 H 124 H 126 H (75-99) mg/dL Calcium (8.4-10.2) mg/dL Magnesium (1.6-2.3) mg/dL AST (14-36) U/L Alkaline Phosphatase (38-126) U/L Total Protein (6.3-8.2) g/dL Albumin (3.5-5.0) g/dL Arterial Blood Potassium (3.4-4.5) mmol/L Arterial Blood Glucose (75-99) mg/dL Crossmatch - Imaging and Cardiology Chest x-ray: report reviewed, image reviewed Assessment and Plan Assessment: 1. 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 History of paroxysmal atrial fibrillation on Eliquis for anticoagulation, status post modified pulmonary vein isolation and exclusion of the left atrial appendage 3. Hypertension 4. Hyperlipidemia 5. Arthritis 6. Breast cancer within the last 5 years, status post left mastectomy without radiation currently on Arimidex 7. Postoperative acute blood loss anemia 8. Postoperative atrial tachycardia Plan: 1. Continue aspirin, statin, Plavix, beta moreno therapy. Will increase beta moreno as tolerated. Esmolol drip discontinued 2. Oral amiodarone initiated per cardiology, continue. We will reinitiate Eliquis once all lines/tubes have been discontinued, will discontinue Plavix once Eliquis reinitiated 3. Wean O2 as tolerated. Encourage incentive spirometry 10 times every hour while awake. 4. Increase activity, ambulate as tolerated. PT/OT/cardiac rehab following 5. Bronchodilators per pulmonology 6. Pain control with current medication regimen. Will add colchicine 7. Will monitor daily labs and x-rays. Electrolyte replacement per protocol. No transfusion at this time. We will give Lasix IV push today 8. Postoperative insulin management per primary care service, patient is not diabetic 9. Discontinue [place] catheter. Connect Cordis to continue CVP monitoring 10. Continue chest tubes for another 24 hours 11. Continue Soni catheter for another 24 hours for strict accurate intake and output 12. More recommendations to follow based on patient's progress Time with Patient: Greater than 30
--- NOTE | 2019-08-18 09:15 | PN ---
PROGRESS NOTE Mrs. Santamaria is a 64-year-old female who underwent mitral valve repair yesterday. She has prior history of paroxysmal atrial fibrillation. No history of obstructive coronary artery disease. She is extubated, sitting up in the chair. She is feeling tired. She has some dyspnea. No chest discomfort. She was tachycardic. Her rate that has been steady and after reviewing the rhythm strip and EKG, looks like an AV reji reentry tachycardia with retrograde P wave. She was given adenosine with sabianism of sinus mechanism. She is stable at this time on no pressors, sitting up in the chair. Her urine output is stable. She was tried on esmolol during the night. She continues otherwise to be on metoprolol tartrate 12.5 mg twice a day, aspirin once a day, Plavix 75 mg daily. PHYSICAL EXAMINATION: Blood pressure running in the 110/60 with a heart rate initially was in the 120s, now is in the 70s. LUNGS: Mild decrease in breath sounds at the bases, no wheezes. HEART: Regular rate and rhythm, S1, S2. No S3. No rub. ABDOMEN: Soft, nontender. Positive bowel sounds, no organomegaly. EXTREMITIES: No edema appreciated. Chest x-ray revealed mild congestion. LAB DATA: Revealed the potassium 4.8, BUN and creatinine 16 and 0.65, hemoglobin of 8.5. IMPRESSION: 1. Status post mitral valve repair. 2. 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 3. Prior history of paroxysmal atrial fibrillation, in sinus mechanism at this time. 4. Prior history of hyperlipidemia. RECOMMENDATION: From the cardiac standpoint, Patient will need to be re-anticoagulated when this is agreeable with the surgical service. I will put her on amiodarone to try to prevent the arrhythmia and the probable recurrent atrial fibrillation. After that, I will wean that off and make a decision if she needs ablation as an outpatient. Once is agreeable with the surgical service, then I will stop the aspirin and Plavix and put her on Eliquis. MMODL / IJN: [id number] /
[2019-08-18 09:40] VITALS: BMI 39.0
[2019-08-18] MEDS: IPRATROPIUM-ALBUTEROL 3 ML NEB INHALATION SCH ×4 (09:55→19:33)
[2019-08-18 10:22] LABS: Glucose,Whole Blood 126 mg/dL (75-99)
[2019-08-18] MEDS: CYCLOBENZAPRINE 10 MG TAB PO PRN (11:29)
[2019-08-18] MEDS: LACTATED RINGERS 1,000 ML IV SCH (11:30)
[2019-08-18] MEDS ORDERED: METOPROLOL TARTRATE 25 MG TAB PO STA (11:32)
--- NOTE | 2019-08-18 12:33 | P.CONS ---
History of Present Illness - Reason for Consult Consult date: 08/18/19 - History of Present Illness This is a 64-year-old female patient of Dr. Fracisco Casarez with past medical history of paroxysmal atrial fibrillation, gastroesophageal reflux disease, hyper lipidemia, mitral valve prolapse, breast cancer diagnosed in 2016 initially had a lumpectomy followed by simple mastectomy without chemotherapy or radiation, degenerative disc disease of the cervical and lumbar spine. Patient has been brought in the hospital on the care of . surgery status post mitral valve repair with exclusion of left atrial appendage, modified maze procedure and intraoperative transesophageal echocardiogram on 08/17/2019. Patient is seen today in the intensive care unit. She was successfully extubated last evening. Patient is complaining of significant pain in her chest of #9 out of 10. Vital signs at been stable. She denies any flatus. She states she was up in the chair this morning for several hours. She has a mediastinal and right pleural chest tubes in place, swans Cortis and left radial artery line. Patient had episode of SVT this morning status post medicine when converted to normal sinus rhythm. Review of Systems Constitutional: Reports poor appetite, Denies anorexia, Denies chills, Denies fatigue, Denies fever, Denies lethargy, Denies malaise Eyes: denies blurred vision, denies pain Ears, nose, mouth and throat: Denies dental pain, Denies dysphagia, Denies nasal congestion, Denies nasal discharge, Denies vertigo Cardiovascular: Reports chest pain, Denies edema, Denies lightheadedness, Denies shortness of breath, Denies syncope Respiratory: Denies cough, Denies cough with sputum, Denies dyspnea, Denies excessive sputum, Denies hemoptysis, Denies home oxygen, Denies respiratory infections, Denies wheezing Gastrointestinal: Reports loss of appetite, Denies abdominal pain, Denies diarrhea, Denies nausea, Denies vomiting Genitourinary: Denies dysuria, Denies hematuria Musculoskeletal: Denies frequent falls, Denies gait dysfunction, Denies myalgias Integumentary: Denies pruritus, Denies rash Neurological: Denies change in mentation, Denies change in speech, Denies numbness, Denies weakness Psychiatric: Denies anxiety, Denies depression Endocrine: Denies fatigue, Denies weight change Past Medical History Past Medical History: Atrial Fibrillation, Cancer, GERD/Reflux, Hyperlipidemia, Mitral Valve Prolapse (MVP) Additional Past Medical History / Comment(s): dx. breast cancer 2016-no chemo or radiation, degenerative disc disease of cervical and lumbar spine-chronic pain to neck and left leg, LEAKY MITRAL VALVE History of Any Multi-Drug Resistant Organisms: None Reported Past Surgical History: Appendectomy, Breast Surgery, Cholecystectomy Additional Past Surgical History / Comment(s): L breast bx., left breast lumpectomy & sentinel lymph node biopsy, left simple mastectomy, colonoscopy. Past Anesthesia/Blood Transfusion Reactions: No Reported Reaction Additional Past Anesthesia/Blood Transfusion Reaction / Comm: no hx blood transfusion Smoking Status: Never smoker Additional Past Alcohol Use History / Comment(s): The patient is a lifelong nonsmoker. She denies any marijuana, illicit drug use or alcohol use. - Past Family History Mother Family Medical History: Deep Vein Thrombosis (DVT), Hypertension Additional Family Medical History / Comment(s): Mother at age 90 with history of osteoarthritis, hypertension. Patient from old age. Father Family Medical History: Pulmonary Embolus Additional Family Medical History / Comment(s): Father is alive at age 91 with history of skin cell basal cell cancer, hypertension, heart murmur. Brother(s) Additional Family Medical History / Comment(s): She has 3 brothers and 1 sister with no major medical problems. Daughter(s) Family Medical History: Pulmonary Embolus Additional Family Medical History / Comment(s): Patient has 3 children. One daughter at age 36 with history of complicated ulcerative colitis with history of pneumonia, sepsis and bacterial meningitis, peritonsillar abscess, pulmonary embolism, stroke. Patient's other 2 children have no major medical problems. Maternal grandfather at age 66 from prostate cancer. Paternal grandmother at young age from ovarian cancer. Medications and Allergies Home Medications Medication Instructions Recorded Confirmed Type Simvastatin [Zocor] 40 mg PO HS 01/24/18 08/17/19 History Cholecalciferol (Vitamin D3) 2,000 unit PO DAILY 02/12/18 08/17/19 History [Vitamin D3] Cyclobenzaprine [Flexeril] 10 mg PO DAILY PRN 02/12/18 08/17/19 History Ubidecarenone [Co Q-10] 200 mg PO DAILY 02/12/18 08/17/19 History Valsartan [Diovan] 80 mg PO DAILY 02/12/18 08/17/19 History Metoprolol Tartrate [Lopressor] 100 mg PO BID 02/20/18 08/17/19 History Multivit with Calcium,Iron,Min 1 tab PO DAILY 03/17/18 08/17/19 History [Women's Multivitamin] [place]-3 Fatty Acids [[place]-3] 1,000 mg PO DAILY 03/17/18 08/17/19 History Anastrozole [Arimidex] 1 mg PO DAILY 08/29/18 08/17/19 History Esomeprazole Magnesium [NexIUM] 20 mg PO Q2D 08/29/18 08/17/19 History Ranitidine HCl 150 mg PO Q2D 08/29/18 08/17/19 History Apixaban [Eliquis] 5 mg PO BID 07/17/19 08/17/19 History Acetaminophen [Tylenol Arthritis] 1,300 mg PO BID PRN 08/13/19 08/17/19 History Ibuprofen 400 mg PO Q8H PRN 08/13/19 08/17/19 History traMADol HCL [Ultram] 50 mg PO Q6HR PRN 08/13/19 08/17/19 History Allergies Allergy/AdvReac Type Severity Reaction Status Date / Time ciprofloxacin [From Cipro] Allergy tachycardia Verified 08/17/19 05:46 Physical Exam Vitals: Vital Signs Temp Pulse Resp BP Pulse Ox 08/18/19 10:52 73 08/18/19 10:42 73 08/18/19 07:00 120 H 18 97/65 96 08/18/19 06:00 120 H 13 102/72 95 08/18/19 05:00 117 H 17 90/61 96 08/18/19 04:00 117 H 18 99/59 96 08/18/19 03:00 115 H 16 95/65 99 08/18/19 02:00 113 H 18 104/64 99 08/18/19 01:00 114 H 12 93/49 100 08/18/19 00:00 114 H 18 103/66 100 08/17/19 23:55 18 08/17/19 23:45 115 H 19 100 08/17/19 23:30 117 H 08/17/19 23:15 118 H 08/17/19 23:00 121 H 18 106/61 100 08/17/19 22:45 76 17 106/61 100 08/17/19 22:30 77 14 106/61 100 08/17/19 22:15 78 15 106/61 100 08/17/19 22:00 79 18 103/51 96 08/17/19 21:00 81 17 92/61 93 L 08/17/19 20:59 82 08/17/19 20:47 78 08/17/19 20:15 118 H 86/57 100 08/17/19 20:00 118 H 19 91/53 98 08/17/19 19:45 121 H 93 L 08/17/19 19:30 122 H 97 08/17/19 19:15 125 H 99 08/17/19 19:00 128 H 19 94/71 97 08/17/19 18:45 130 H 25 H 100/67 98 08/17/19 18:30 131 H 25 H 97/62 98 08/17/19 18:15 129 H 17 94/68 98 08/17/19 18:00 124 H 18 87/70 97 08/17/19 17:45 130 H 19 95/62 98 08/17/19 17:30 137 H 26 H 98/66 98 08/17/19 17:15 140 H 26 H 107/61 95 08/17/19 17:00 92 27 H 99 08/17/19 16:45 91 19 100 08/17/19 16:30 90 21 105/70 100 08/17/19 16:15 87 20 105/70 100 08/17/19 16:00 96.4 F L 85 13 99 08/17/19 15:51 86 08/17/19 15:45 86 27 H 99 08/17/19 15:32 84 08/17/19 15:30 81 12 100 08/17/19 15:15 81 12 100 08/17/19 15:00 84 11 L 102/70 99 08/17/19 14:45 82 13 100 08/17/19 14:30 83 15 99 Intake and Output 08/17/19 08/18/19 08/18/19 22:59 06:59 14:59 Intake Total 636.162 8593.075 90.827 Output Total 507 615 55 Balance 184.629 731.075 35.827 Intake: IV 607 603 60 CO/CI 170 130 Lactated Ringers 1,000 ml 380 400 50 @ 20 mls/hr IV .Q24H JC Rx#:[id number] Pressure Bags 57 73 10 Intake, IV Titration 84.629 343.075 30.827 Amount Esmolol in Sodium 60.630 330.24 27.09 Chloride Pmx 2.5 gm In Saline 1 250ml.bag @ 25 MCG/KG/MIN 12.9 mls/hr IV .[id number] JC Rx#: [id number] Insulin Regular 100 unit 13.163 12.835 3.737 In Sodium Chloride 0.9% 100 ml @ Per Protocol IV .Q0M JC Rx#:[id number] Propofol 1,000 mg In 10.836 Empty Bag 1 bag @ Titrate IV .Q0M JC Rx#: [id number] Oral 400 Output: Chest Tube Drainage 197 285 30 Mediastinal 144 112 10 Right Pleural 53 173 20 Urine 310 330 25 Other: Voiding Method Indwelling Catheter Indwelling Catheter Weight 93.7 kg 93.7 kg ABP, PAP, CO, CI - Last 8 Hours Arterial Blood Pressure 117/60 Arterial Blood Pressure 95/50 Arterial Blood Pressure 109/62 Arterial Blood Pressure 100/57 Arterial Blood Pressure 91/55 Pulmonary Artery Pressure 31/10 Pulmonary Artery Pressure 34/14 Pulmonary Artery Pressure 38/20 Pulmonary Artery Pressure 38/21 Cardiac Output 5.3 Cardiac Output 3.9 Cardiac Index 2.9 Cardiac Index 2.1 Gen: This is a 64-year-old obese female. She is resting in the ICU bed and appears to be somewhat uncomfortable. Patient is complaining of chest pain at the surgical area. HEENT: Head is atraumatic, normocephalic. Pupils equal, round. Sclerae is anicteric. Cordis in place. NECK: Supple. No JVD. No lymphadenopathy. No thyromegaly. LUNGS: Diminished bilaterally. No wheezes or rhonchi. No intercostal retractions. Mediastinal and right pleural chest tubes in place HEART: Regular rate and rhythm. No murmur. ABDOMEN: Soft. Bowel sounds are hypoactive. No masses. No tenderness. Soni catheter with miranda urine. EXTREMITIES: No pedal edema. No calf tenderness. NEUROLOGICAL: Patient is awake, alert and oriented x3. Cranial nerves 2 through 12 are grossly intact. Results CBC & Chem 7: 08/18/19 04:00 08/18/19 04:00 Labs: Abnormal Lab Results - Last 24 Hours (Table) 08/12/19 08/17/19 08/17/19 Range/Units 09:05 08:50 09:41 WBC (3.8-10.6) k/uL RBC (3.80-5.40) m/uL Hgb (11.4-16.0) gm/dL Hct (34.0-46.0) % Plt Count (150-450) k/uL Neutrophils # (1.3-7.7) k/uL Lymphocytes # (1.0-4.8) k/uL PT (9.0-12.0) sec INR (<1.2) APTT (22.0-30.0) sec ABG pH (7.35-7.45) ABG pCO2 (35-45) mmHg ABG pO2 193 H 210 H (83-108) mmHg ABG HCO3 26 H (21-25) mmol/L ABG Total CO2 27 H 27 H (19-24) mmol/L ABG O2 Saturation 99.9 H 99.9 H (94-97) % ABG Hematocrit 32 L (34.0-46.0) % ABG Sodium (135-146) mmol/L ABG Potassium (3.4-4.5) mmol/L ABG Ionized Calcium (4.5-5.3) mg/dL ABG Glucose 106 H 125 H (75-99) mg/dL ABG Lactic Acid 2.8 H* 3.0 H* (0.5-1.6) mmol/L Hemoglobin 10.4 L (11.4-16.0) gm/dL Glucose (74-99) mg/dL POC Glucose (mg/dL) (75-99) mg/dL Calcium (8.4-10.2) mg/dL Magnesium (1.6-2.3) mg/dL AST (14-36) U/L Alkaline Phosphatase (38-126) U/L Total Protein (6.3-8.2) g/dL Albumin (3.5-5.0) g/dL Arterial Blood Potassium (3.4-4.5) mmol/L Arterial Blood Glucose 106 H 125 H (75-99) mg/dL Crossmatch See Detail 08/17/19 08/17/19 08/17/19 Range/Units 10:13 10:46 11:18 WBC (3.8-10.6) k/uL RBC (3.80-5.40) m/uL Hgb (11.4-16.0) gm/dL Hct (34.0-46.0) % Plt Count (150-450) k/uL Neutrophils # (1.3-7.7) k/uL Lymphocytes # (1.0-4.8) k/uL PT (9.0-12.0) sec INR (<1.2) APTT (22.0-30.0) sec ABG pH 7.34 L (7.35-7.45) ABG pCO2 (35-45) mmHg ABG pO2 415 H 301 H 396 H (83-108) mmHg ABG HCO3 26 H (21-25) mmol/L ABG Total CO2 25 H 27 H (19-24) mmol/L ABG O2 Saturation 100.0 H 100.0 H 100.0 H (94-97) % ABG Hematocrit 23 L 23 L 22 L (34.0-46.0) % ABG Sodium 132 L 134 L (135-146) mmol/L ABG Potassium 4.6 H (3.4-4.5) mmol/L ABG Ionized Calcium 4.1 L 4.4 L 4.3 L (4.5-5.3) mg/dL ABG Glucose 132 H 224 H 226 H (75-99) mg/dL ABG Lactic Acid 2.6 H* 3.5 H* 3.4 H* (0.5-1.6) mmol/L Hemoglobin 7.6 L 7.5 L 7.2 L (11.4-16.0) gm/dL Glucose (74-99) mg/dL POC Glucose (mg/dL) (75-99) mg/dL Calcium (8.4-10.2) mg/dL Magnesium (1.6-2.3) mg/dL AST (14-36) U/L Alkaline Phosphatase (38-126) U/L Total Protein (6.3-8.2) g/dL Albumin (3.5-5.0) g/dL Arterial Blood Potassium 4.6 H (3.4-4.5) mmol/L Arterial Blood Glucose 132 H 224 H 226 H (75-99) mg/dL Crossmatch 08/17/19 08/17/19 08/17/19 Range/Units 11:46 12:22 13:34 WBC (3.8-10.6) k/uL RBC (3.80-5.40) m/uL Hgb (11.4-16.0) gm/dL Hct (34.0-46.0) % Plt Count (150-450) k/uL Neutrophils # (1.3-7.7) k/uL Lymphocytes # (1.0-4.8) k/uL PT (9.0-12.0) sec INR (<1.2) APTT (22.0-30.0) sec ABG pH (7.35-7.45) ABG pCO2 (35-45) mmHg ABG pO2 393 H 380 H 348 H (83-108) mmHg ABG HCO3 (21-25) mmol/L ABG Total CO2 27 H 25 H (19-24) mmol/L ABG O2 Saturation 100.0 H 100.0 H 100.0 H (94-97) % ABG Hematocrit 22 L 21 L 30 L (34.0-46.0) % ABG Sodium (135-146) mmol/L ABG Potassium (3.4-4.5) mmol/L ABG Ionized Calcium 4.3 L 4.3 L (4.5-5.3) mg/dL ABG Glucose 202 H 186 H 136 H (75-99) mg/dL ABG Lactic Acid 4.0 H* 5.6 H* 4.6 H* (0.5-1.6) mmol/L Hemoglobin 7.1 L 6.8 L* 9.7 L (11.4-16.0) gm/dL Glucose (74-99) mg/dL POC Glucose (mg/dL) (75-99) mg/dL Calcium (8.4-10.2) mg/dL Magnesium (1.6-2.3) mg/dL AST (14-36) U/L Alkaline Phosphatase (38-126) U/L Total Protein (6.3-8.2) g/dL Albumin (3.5-5.0) g/dL Arterial Blood Potassium (3.4-4.5) mmol/L Arterial Blood Glucose 202 H 186 H 136 H (75-99) mg/dL Crossmatch 08/17/19 08/17/19 08/17/19 Range/Units 14:35 14:35 14:35 WBC 13.3 H (3.8-10.6) k/uL RBC 2.90 L (3.80-5.40) m/uL Hgb 9.4 L D (11.4-16.0) gm/dL Hct 28.1 L (34.0-46.0) % Plt Count 111 L D (150-450) k/uL Neutrophils # 11.1 H (1.3-7.7) k/uL Lymphocytes # (1.0-4.8) k/uL PT 13.2 H (9.0-12.0) sec INR 1.3 H (<1.2) APTT 43.7 H (22.0-30.0) sec ABG pH (7.35-7.45) ABG pCO2 (35-45) mmHg ABG pO2 (83-108) mmHg ABG HCO3 (21-25) mmol/L ABG Total CO2 (19-24) mmol/L ABG O2 Saturation (94-97) % ABG Hematocrit (34.0-46.0) % ABG Sodium (135-146) mmol/L ABG Potassium (3.4-4.5) mmol/L ABG Ionized Calcium (4.5-5.3) mg/dL ABG Glucose (75-99) mg/dL ABG Lactic Acid (0.5-1.6) mmol/L Hemoglobin (11.4-16.0) gm/dL Glucose (74-99) mg/dL POC Glucose (mg/dL) (75-99) mg/dL Calcium 8.2 L (8.4-10.2) mg/dL Magnesium 2.7 H (1.6-2.3) mg/dL AST 60 H (14-36) U/L Alkaline Phosphatase 30 L (38-126) U/L Total Protein 5.0 L (6.3-8.2) g/dL Albumin 3.1 L (3.5-5.0) g/dL Arterial Blood Potassium (3.4-4.5) mmol/L Arterial Blood Glucose (75-99) mg/dL Crossmatch 08/17/19 08/17/19 08/17/19 Range/Units 15:09 15:24 17:09 WBC (3.8-10.6) k/uL RBC (3.80-5.40) m/uL Hgb (11.4-16.0) gm/dL Hct (34.0-46.0) % Plt Count (150-450) k/uL Neutrophils # (1.3-7.7) k/uL Lymphocytes # (1.0-4.8) k/uL PT (9.0-12.0) sec INR (<1.2) APTT (22.0-30.0) sec ABG pH 7.29 L (7.35-7.45) ABG pCO2 52 H (35-45) mmHg ABG pO2 298 H (83-108) mmHg ABG HCO3 (21-25) mmol/L ABG Total CO2 27 H (19-24) mmol/L ABG O2 Saturation 100.0 H (94-97) % ABG Hematocrit (34.0-46.0) % ABG Sodium (135-146) mmol/L ABG Potassium (3.4-4.5) mmol/L ABG Ionized Calcium (4.5-5.3) mg/dL ABG Glucose (75-99) mg/dL ABG Lactic Acid (0.5-1.6) mmol/L Hemoglobin (11.4-16.0) gm/dL Glucose (74-99) mg/dL POC Glucose (mg/dL) 105 H 174 H (75-99) mg/dL Calcium (8.4-10.2) mg/dL Magnesium (1.6-2.3) mg/dL AST (14-36) U/L Alkaline Phosphatase (38-126) U/L Total Protein (6.3-8.2) g/dL Albumin (3.5-5.0) g/dL Arterial Blood Potassium (3.4-4.5) mmol/L Arterial Blood Glucose (75-99) mg/dL Crossmatch 08/17/19 08/17/19 08/17/19 Range/Units 17:15 18:08 19:09 WBC 16.3 H (3.8-10.6) k/uL RBC 3.03 L (3.80-5.40) m/uL Hgb 9.8 L (11.4-16.0) gm/dL Hct 29.5 L (34.0-46.0) % Plt Count 133 L (150-450) k/uL Neutrophils # 14.1 H (1.3-7.7) k/uL Lymphocytes # (1.0-4.8) k/uL PT (9.0-12.0) sec INR (<1.2) APTT (22.0-30.0) sec ABG pH (7.35-7.45) ABG pCO2 (35-45) mmHg ABG pO2 (83-108) mmHg ABG HCO3 (21-25) mmol/L ABG Total CO2 (19-24) mmol/L ABG O2 Saturation (94-97) % ABG Hematocrit (34.0-46.0) % ABG Sodium (135-146) mmol/L ABG Potassium (3.4-4.5) mmol/L ABG Ionized Calcium (4.5-5.3) mg/dL ABG Glucose (75-99) mg/dL ABG Lactic Acid (0.5-1.6) mmol/L Hemoglobin (11.4-16.0) gm/dL Glucose (74-99) mg/dL POC Glucose (mg/dL) 166 H 152 H (75-99) mg/dL Calcium (8.4-10.2) mg/dL Magnesium (1.6-2.3) mg/dL AST (14-36) U/L Alkaline Phosphatase (38-126) U/L Total Protein (6.3-8.2) g/dL Albumin (3.5-5.0) g/dL Arterial Blood Potassium (3.4-4.5) mmol/L Arterial Blood Glucose (75-99) mg/dL Crossmatch 08/17/19 08/17/19 08/17/19 Range/Units 19:14 20:08 20:09 WBC 12.1 H (3.8-10.6) k/uL RBC 2.85 L (3.80-5.40) m/uL Hgb 9.2 L (11.4-16.0) gm/dL Hct 27.9 L (34.0-46.0) % Plt Count 119 L (150-450) k/uL Neutrophils # 10.6 H (1.3-7.7) k/uL Lymphocytes # 0.8 L (1.0-4.8) k/uL PT (9.0-12.0) sec INR (<1.2) APTT (22.0-30.0) sec ABG pH 7.34 L (7.35-7.45) ABG pCO2 (35-45) mmHg ABG pO2 155 H (83-108) mmHg ABG HCO3 (21-25) mmol/L ABG Total CO2 (19-24) mmol/L ABG O2 Saturation 99.7 H (94-97) % ABG Hematocrit (34.0-46.0) % ABG Sodium (135-146) mmol/L ABG Potassium (3.4-4.5) mmol/L ABG Ionized Calcium (4.5-5.3) mg/dL ABG Glucose (75-99) mg/dL ABG Lactic Acid (0.5-1.6) mmol/L Hemoglobin (11.4-16.0) gm/dL Glucose (74-99) mg/dL POC Glucose (mg/dL) 147 H (75-99) mg/dL Calcium (8.4-10.2) mg/dL Magnesium (1.6-2.3) mg/dL AST (14-36) U/L Alkaline Phosphatase (38-126) U/L Total Protein (6.3-8.2) g/dL Albumin (3.5-5.0) g/dL Arterial Blood Potassium (3.4-4.5) mmol/L Arterial Blood Glucose (75-99) mg/dL Crossmatch 08/17/19 08/17/19 08/17/19 Range/Units 21:06 22:00 22:01 WBC (3.8-10.6) k/uL RBC (3.80-5.40) m/uL Hgb (11.4-16.0) gm/dL Hct (34.0-46.0) % Plt Count (150-450) k/uL Neutrophils # (1.3-7.7) k/uL Lymphocytes # (1.0-4.8) k/uL PT (9.0-12.0) sec INR (<1.2) APTT (22.0-30.0) sec ABG pH (7.35-7.45) ABG pCO2 (35-45) mmHg ABG pO2 (83-108) mmHg ABG HCO3 (21-25) mmol/L ABG Total CO2 (19-24) mmol/L ABG O2 Saturation (94-97) % ABG Hematocrit (34.0-46.0) % ABG Sodium (135-146) mmol/L ABG Potassium (3.4-4.5) mmol/L ABG Ionized Calcium (4.5-5.3) mg/dL ABG Glucose (75-99) mg/dL ABG Lactic Acid (0.5-1.6) mmol/L Hemoglobin (11.4-16.0) gm/dL Glucose 117 H (74-99) mg/dL POC Glucose (mg/dL) 131 H 132 H (75-99) mg/dL Calcium (8.4-10.2) mg/dL Magnesium (1.6-2.3) mg/dL AST (14-36) U/L Alkaline Phosphatase (38-126) U/L Total Protein (6.3-8.2) g/dL Albumin (3.5-5.0) g/dL Arterial Blood Potassium (3.4-4.5) mmol/L Arterial Blood Glucose (75-99) mg/dL Crossmatch 08/17/19 08/18/19 08/18/19 Range/Units 23:13 00:07 01:02 WBC (3.8-10.6) k/uL RBC (3.80-5.40) m/uL Hgb (11.4-16.0) gm/dL Hct (34.0-46.0) % Plt Count (150-450) k/uL Neutrophils # (1.3-7.7) k/uL Lymphocytes # (1.0-4.8) k/uL PT (9.0-12.0) sec INR (<1.2) APTT (22.0-30.0) sec ABG pH (7.35-7.45) ABG pCO2 (35-45) mmHg ABG pO2 (83-108) mmHg ABG HCO3 (21-25) mmol/L ABG Total CO2 (19-24) mmol/L ABG O2 Saturation (94-97) % ABG Hematocrit (34.0-46.0) % ABG Sodium (135-146) mmol/L ABG Potassium (3.4-4.5) mmol/L ABG Ionized Calcium (4.5-5.3) mg/dL ABG Glucose (75-99) mg/dL ABG Lactic Acid (0.5-1.6) mmol/L Hemoglobin (11.4-16.0) gm/dL Glucose (74-99) mg/dL POC Glucose (mg/dL) 126 H 128 H 118 H (75-99) mg/dL Calcium (8.4-10.2) mg/dL Magnesium (1.6-2.3) mg/dL AST (14-36) U/L Alkaline Phosphatase (38-126) U/L Total Protein (6.3-8.2) g/dL Albumin (3.5-5.0) g/dL Arterial Blood Potassium (3.4-4.5) mmol/L Arterial Blood Glucose (75-99) mg/dL Crossmatch 08/18/19 08/18/19 08/18/19 Range/Units 02:02 03:05 04:00 WBC 11.1 H (3.8-10.6) k/uL RBC 2.65 L (3.80-5.40) m/uL Hgb 8.5 L (11.4-16.0) gm/dL Hct 25.6 L (34.0-46.0) % Plt Count 111 L (150-450) k/uL Neutrophils # 8.7 H (1.3-7.7) k/uL Lymphocytes # (1.0-4.8) k/uL PT (9.0-12.0) sec INR (<1.2) APTT (22.0-30.0) sec ABG pH (7.35-7.45) ABG pCO2 (35-45) mmHg ABG pO2 (83-108) mmHg ABG HCO3 (21-25) mmol/L ABG Total CO2 (19-24) mmol/L ABG O2 Saturation (94-97) % ABG Hematocrit (34.0-46.0) % ABG Sodium (135-146) mmol/L ABG Potassium (3.4-4.5) mmol/L ABG Ionized Calcium (4.5-5.3) mg/dL ABG Glucose (75-99) mg/dL ABG Lactic Acid (0.5-1.6) mmol/L Hemoglobin (11.4-16.0) gm/dL Glucose (74-99) mg/dL POC Glucose (mg/dL) 120 H 127 H (75-99) mg/dL Calcium (8.4-10.2) mg/dL Magnesium (1.6-2.3) mg/dL AST (14-36) U/L Alkaline Phosphatase (38-126) U/L Total Protein (6.3-8.2) g/dL Albumin (3.5-5.0) g/dL Arterial Blood Potassium (3.4-4.5) mmol/L Arterial Blood Glucose (75-99) mg/dL Crossmatch 08/18/19 08/18/19 08/18/19 Range/Units 04:00 04:05 05:09 WBC (3.8-10.6) k/uL RBC (3.80-5.40) m/uL Hgb (11.4-16.0) gm/dL Hct (34.0-46.0) % Plt Count (150-450) k/uL Neutrophils # (1.3-7.7) k/uL Lymphocytes # (1.0-4.8) k/uL PT (9.0-12.0) sec INR (<1.2) APTT (22.0-30.0) sec ABG pH (7.35-7.45) ABG pCO2 (35-45) mmHg ABG pO2 (83-108) mmHg ABG HCO3 (21-25) mmol/L ABG Total CO2 (19-24) mmol/L ABG O2 Saturation (94-97) % ABG Hematocrit (34.0-46.0) % ABG Sodium (135-146) mmol/L ABG Potassium (3.4-4.5) mmol/L ABG Ionized Calcium (4.5-5.3) mg/dL ABG Glucose (75-99) mg/dL ABG Lactic Acid (0.5-1.6) mmol/L Hemoglobin (11.4-16.0) gm/dL Glucose 111 H (74-99) mg/dL POC Glucose (mg/dL) 124 H 128 H (75-99) mg/dL Calcium (8.4-10.2) mg/dL Magnesium (1.6-2.3) mg/dL AST 72 H (14-36) U/L Alkaline Phosphatase 31 L (38-126) U/L Total Protein 5.1 L (6.3-8.2) g/dL Albumin 3.3 L (3.5-5.0) g/dL Arterial Blood Potassium (3.4-4.5) mmol/L Arterial Blood Glucose (75-99) mg/dL Crossmatch 08/18/19 08/18/19 08/18/19 Range/Units 06:04 07:00 08:20 WBC (3.8-10.6) k/uL RBC (3.80-5.40) m/uL Hgb (11.4-16.0) gm/dL Hct (34.0-46.0) % Plt Count (150-450) k/uL Neutrophils # (1.3-7.7) k/uL Lymphocytes # (1.0-4.8) k/uL PT (9.0-12.0) sec INR (<1.2) APTT (22.0-30.0) sec ABG pH (7.35-7.45) ABG pCO2 (35-45) mmHg ABG pO2 (83-108) mmHg ABG HCO3 (21-25) mmol/L ABG Total CO2 (19-24) mmol/L ABG O2 Saturation (94-97) % ABG Hematocrit (34.0-46.0) % ABG Sodium (135-146) mmol/L ABG Potassium (3.4-4.5) mmol/L ABG Ionized Calcium (4.5-5.3) mg/dL ABG Glucose (75-99) mg/dL ABG Lactic Acid (0.5-1.6) mmol/L Hemoglobin (11.4-16.0) gm/dL Glucose (74-99) mg/dL POC Glucose (mg/dL) 127 H 124 H 126 H (75-99) mg/dL Calcium (8.4-10.2) mg/dL Magnesium (1.6-2.3) mg/dL AST (14-36) U/L Alkaline Phosphatase (38-126) U/L Total Protein (6.3-8.2) g/dL Albumin (3.5-5.0) g/dL Arterial Blood Potassium (3.4-4.5) mmol/L Arterial Blood Glucose (75-99) mg/dL Crossmatch 08/18/19 Range/Units 10:21 WBC (3.8-10.6) k/uL RBC (3.80-5.40) m/uL Hgb (11.4-16.0) gm/dL Hct (34.0-46.0) % Plt Count (150-450) k/uL Neutrophils # (1.3-7.7) k/uL Lymphocytes # (1.0-4.8) k/uL PT (9.0-12.0) sec INR (<1.2) APTT (22.0-30.0) sec ABG pH (7.35-7.45) ABG pCO2 (35-45) mmHg ABG pO2 (83-108) mmHg ABG HCO3 (21-25) mmol/L ABG Total CO2 (19-24) mmol/L ABG O2 Saturation (94-97) % ABG Hematocrit (34.0-46.0) % ABG Sodium (135-146) mmol/L ABG Potassium (3.4-4.5) mmol/L ABG Ionized Calcium (4.5-5.3) mg/dL ABG Glucose (75-99) mg/dL ABG Lactic Acid (0.5-1.6) mmol/L Hemoglobin (11.4-16.0) gm/dL Glucose (74-99) mg/dL POC Glucose (mg/dL) 126 H (75-99) mg/dL Calcium (8.4-10.2) mg/dL Magnesium (1.6-2.3) mg/dL AST (14-36) U/L Alkaline Phosphatase (38-126) U/L Total Protein (6.3-8.2) g/dL Albumin (3.5-5.0) g/dL Arterial Blood Potassium (3.4-4.5) mmol/L Arterial Blood Glucose (75-99) mg/dL Crossmatch Assessment and Plan Plan: 1. Severe mitral valve regurgitation status post mitral valve repair. Continue aspirin, Lipitor 40 mg daily, Plavix 75 mg daily, colchicine 0.6 mg twice daily, Lopressor 25 mg twice daily. Continue current pain management 2. History of paroxysmal atrial fibrillation, currently in a sinus rhythm. Patient has been on eliquis. Continue Lopressor. 3. Episode of SVT converted with adenosine, expected. 4. Hypertension. Continue Lopressor. 5. Hyperlipidemia. Continue atorvastatin. 6. History of breast cancer status post lumpectomy followed by simple mastectomy, no chemotherapy or radiation treatment. Patient is currently on Demadex. 7. DVT prophylaxis. Heparin subcu. 8. GI prophylaxis. Protonix. Discharge plan: To be determined Impression and plan of care have been directed as dictated by the signing physician. Melissa Wu nurse practitioner acting as scribe for signing physician.
[2019-08-18 12:36] LABS: Glucose,Whole Blood 109 mg/dL (75-99)
[2019-08-18 14:07] LABS: Glucose,Whole Blood 122 mg/dL (75-99)
[2019-08-18] MEDS: CLEVIDIPINE BUTYRATE 25 MG in EMPTY BAG 1 BAG IV SCH (15:58)
[2019-08-18 16:21] LABS: Glucose,Whole Blood 156 mg/dL (75-99)
[2019-08-18 18:24] LABS: Glucose,Whole Blood 117 mg/dL (75-99)
[2019-08-18 20:04] LABS: Glucose,Whole Blood 151 mg/dL (75-99)
[2019-08-18] MEDS: METOCLOPRAMIDE 5 MG/ML 2 ML VIAL IVP PRN (20:13)
[2019-08-18] MEDS: SENNOSIDES-DOCUSATE SODIUM 1 EACH TAB PO SCH (20:14)
[2019-08-18] MEDS: METOPROLOL TARTRATE 50 MG TAB PO SCH (20:15)
[2019-08-18 21:38] LABS: Glucose,Whole Blood 182 mg/dL (75-99)
[2019-08-18] MEDS: INSULIN REGULAR 100 UNIT in SODIUM CHLORIDE 0.9% 100 ML IV SCH (21:41)
[2019-08-18 23:22] LABS: Glucose,Whole Blood 136 mg/dL (75-99)
[2019-08-19] MEDS: HYDROcodone/APAP 7.5-325MG 1 EACH TAB PO PRN ×4 (00:25→20:55)
[2019-08-19 01:51] LABS: Glucose,Whole Blood 136 mg/dL (75-99)
[2019-08-19 02:49] LABS: Glucose,Whole Blood 129 mg/dL (75-99)
[2019-08-19 03:54] LABS: Glucose,Whole Blood 142 mg/dL (75-99)
[2019-08-19] MEDS: CYCLOBENZAPRINE 10 MG TAB PO PRN (03:59)
[2019-08-19 04:08] LABS: Basophils % (A) 0 %; Eosinophils # (A) 0.1 k/uL (0-0.7); Eosinophils % (A) 1 %; HCT 25.8 % (34.0-46.0); HGB 8.6 gm/dL (11.4-16.0); Lymphocytes # (A) 2.1 k/uL (1.0-4.8); Lymphocytes % (A) 13 %; MCH 32.4 pg (25.0-35.0); MCHC 33.3 g/dL (31.0-37.0); MCV 97.3 fL (80.0-100.0); Mean Platelet Volume 8.3; Monocytes # (A) 0.9 k/uL (0-1.0); Monocytes % (A) 6 %; Neutrophils # (A) 12.5 k/uL (1.3-7.7); Neutrophils % (A) 79 %; Platelet Count 112 k/uL (150-450); RBC 2.66 m/uL (3.80-5.40); RDW 13.7 % (11.5-15.5); WBC 15.8 k/uL (3.8-10.6)
[2019-08-19 04:18] LABS: Ionized Calcium 4.9 mg/dL (4.5-5.3)
[2019-08-19 04:27] LABS: Albumin 3.2 g/dL (3.5-5.0); Calcium 8.9 mg/dL (8.4-10.2); Potassium 4.2 mmol/L (3.5-5.1); Total Protein 5.2 g/dL (6.3-8.2)
[2019-08-19] MEDS: ONDANSETRON 4 MG/2 ML VIAL IVP PRN ×2 (04:36→19:09)
[2019-08-19] MEDS: KETOROLAC 30 MG/ML 1 ML VIAL IVP SCH ×4 (05:30→23:49)
[2019-08-19] MEDS: PANTOPRAZOLE 40 MG TABLET PO SCH (06:47)
[2019-08-19 07:03] LABS: Glucose,Whole Blood 142 mg/dL (75-99)
--- NOTE | 2019-08-19 07:21 | PN ---
PROGRESS NOTE PULMONARY/CRITICAL CARE PROGRESS NOTE: This 64-year-old female with history of arthritis, mitral valve prolapse, paroxysmal atrial fibrillation, breast cancer, status post left mastectomy, who was referred because of mitral valve disease and need for potential mitral valve repair or replacement. The patient is postop day #2, status post mitral valve repair. The patient is doing well. She is currently on O2 at 4 L. She is getting lactated Ringer's at 20 mL an hour and insulin drip at 2 units an hour. Her chest x-ray is improved. She is still doing somewhat poorly on her incentive spirometer. She is encouraged. Other than that, she had a pretty uneventful night. She has no major complaints this morning other than pain at the surgical site. PHYSICAL EXAMINATION: VITAL SIGNS: Current vital signs are reviewed. Temperature 98.2, heart rate 71, respiratory rate 12, blood pressure 133/57, CVP is 15, saturations are 92% on 4 L. GENERAL: Appears in no acute distress. HEENT: Examination is grossly unremarkable. Nasal O2 in place. NECK: Supple. Full range of motion. No adenopathy. Neck veins are flat. CARDIOVASCULAR: Examination reveals regular rhythm and rate. Heart rate is 70. S1, S2 normal. LUNGS: Reveal a few scattered rhonchi. No wheezes. Breath sounds are diminished throughout. She does not take deep breaths. ABDOMEN: Soft. Bowel sounds are heard. EXTREMITIES: Are intact. No cyanosis, clubbing, or edema. Chest x-ray today in my opinion is improved over yesterday. Yesterday, I thought she had a touch of fluid overload. LABS: Labs are reviewed. White count 15.8, hemoglobin 8.6, hematocrit 25.8, platelet count 112,000. Sodium 129, potassium 4.2, chloride 98, CO2 of 24. Anion gap 7. BUN and creatinine were 22 and 0.84. Albumin 3.1. Microbiology is all negative. MEDICATIONS: Medications are reviewed. Everything seems to be appropriate. ASSESSMENT: 1. Postoperative day #2, status post mitral valve repair, intraoperative transesophageal echocardiogram, modified Maze procedure, left atrial appendage exclusion. 2. Mitral valve disease. 3. Routine postoperative ventilator management with extubation at 5 hours and 20 minutes after leaving the operating room. 4. Paroxysmal atrial fibrillation. 5. Hyperlipidemia. 6. Lifetime nontobacco user. PLAN: The patient is doing okay. Chest x-ray is improved. She needs deep breathing, coughing, clearing of secretions and hourly use of the incentive spirometer. Only getting 500 mL on the incentive spirometer. She is encouraged. She remains on insulin drip at 2 units an hour, lactated Ringer's at 20 mL an hour and 4 L nasal cannula. We will continue to follow. Prognosis is guarded. MMODL / IJN: [id number] /
--- NOTE | 2019-08-19 07:36 | PN ---
PROGRESS NOTE Mrs. Santamaria is a 64-year-old female who presented for mitral valve repair. She underwent surgery by Dr. Madrigal. She has no history of obstructive coronary disease. She is doing well this morning. She has some spasm in her back, but no chest pain. Her breathing has been stable. She continued to be in sinus mechanism. She had further episode of supraventricular tachycardia that resolved yesterday. She has not had any since. Hemodynamically, she has been stable. There is no evidence of ventricular tachycardia or atrial fibrillation. She continued to be on amiodarone 400 mg twice a day, aspirin once a day, Plavix 75 mg daily, Lipitor 40 mg daily, metoprolol tartrate 50 mg twice a day. PHYSICAL EXAMINATION: Blood pressure 120/60 with the heart rate in the 70s. LUNGS: Clear. HEART: Regular rate and rhythm. S1, S2. No S3. No rub appreciated. ABDOMEN: Soft, nontender. EXTREMITIES: No edema. LAB DATA: Lab data revealed hemoglobin of 8.6, BUN and creatinine 22 and 0.84. IMPRESSION: 1. Status post mitral valve repair, stable. 2. Episode of supraventricular tachycardia, stable. 3. History of hypertension. 4. Hyperlipidemia. RECOMMENDATION: Once her chest tube has been removed then I will re-initiate treatment with Eliquis and stop the aspirin and the Plavix because of her prior history of atrial fibrillation. Continue the present therapy. Follow her blood pressure and heart rate to see if angiotensin receptor moreno needs to be re-initiated. MMODL / IJN: [id number] /
[2019-08-19] MEDS ORDERED: FUROSEMIDE 10 MG/ML 2 ML VIAL IV ONE (07:38)
[2019-08-19] MEDS: IPRATROPIUM-ALBUTEROL 3 ML NEB INHALATION SCH ×4 (07:51→19:45)
--- NOTE | 2019-08-19 08:08 | XR ---
EXAMINATION TYPE: XR chest 1V portable DATE OF EXAM: 08/19/2019 COMPARISON: 08/18/2019 HISTORY: Postop cardiac surgery TECHNIQUE: Single frontal view of the chest is obtained. FINDINGS: [place] catheter has been removed. Postsurgical changes are seen and there is cardiomega ly with bilateral consolidation and pleural effusion. No sizable pneumothorax. Right-sided chest tube remains in position. Mediastinal drain suggested. IMPRESSION: Bilateral pleural-parenchymal changes are stable correlate for CHF with basilar postoper ative atelectasis favored over pneumonia correlate clinically.
[2019-08-19] MEDS: COLCHICINE 0.6 MG EACH PO SCH ×2 (08:27→20:54)
[2019-08-19] MEDS: MULTIVITAMINS, THERA 1 EACH TAB PO SCH (08:28)
[2019-08-19] MEDS: HEPARIN SODIUM,PORCINE 5,000 UNIT/ML 1 ML VIAL SQ SCH ×3 (08:28→23:49)
[2019-08-19] MEDS: METOPROLOL TARTRATE 50 MG TAB PO SCH ×2 (08:28→20:55)
[2019-08-19] MEDS: AMIODARONE 200 MG TAB PO SCH ×2 (08:28→20:56)
[2019-08-19] MEDS: CLOPIDOGREL 75 MG TAB PO SCH (08:28)
[2019-08-19] MEDS: ATORVASTATIN 40 MG TAB PO SCH (08:28)
[2019-08-19] MEDS: ASPIRIN 325 MG TAB PO SCH (08:28)
[2019-08-19] MEDS: CHOLECALCIFEROL 1,000 UNIT TAB PO SCH (08:28)
--- NOTE | 2019-08-19 09:15 | P.PN ---
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 Previous medical history of paroxysmal atrial fibrillation on Eliquis for anticoagulation, hypertension, hyperlipidemia, arthritis, breast cancer within the last 5 years status post left mastectomy without radiation currently on Arimadex. POD #2 complex mitral valve repair with triangular resection of P2, closure of P2, P3 cleft, construction all for radial cord to A2, complete ring annuloplasty using a 34 mm physio-2 ring. Modified pulmonary vein isolation with a box lesion using [facility] Exclusion of the left atrial appendage using a 35 mm after clip. Intraoperative transesophageal echocardiogram and epi-aortic scanning. Postoperative acute blood loss anemia, expected outcome of surgery given hemodilution and cardiopulmonary bypass pump. Postoperative atrial tachycardia, expected Patient's currently sitting up in a recliner in no acute distress, eating breakfast. Does complain of post surgical type pain and back pain which is controlled on current medication regimen, denies shortness of breath. She has had no further episodes of atrial tachycardia since initiation of oral amiodarone, IV bolus amiodarone, and increase in Lopressor. She did ambulate yesterday. No new concerns. Objective - Vital Signs Vital signs: Vital Signs Temp 98.5 F 08/19/19 08:00 Pulse 77 08/19/19 08:04 Resp 12 08/19/19 08:00 BP 137/74 08/18/19 22:00 Pulse Ox 94 L 08/19/19 08:00 Intake & Output 08/18/19 08/19/19 08/19/19 18:59 06:59 18:59 Intake Total 527.885 336.147 26 Output Total 1175 905 Balance -647.115 -568.853 26 Weight 93.7 kg 94.6 kg Intake: IV 482 312 26 CO/CI 20 Lactated Ringers 1,000 ml 380 240 20 @ 20 mls/hr IV .Q24H [facility] Rx#:[id number] Pressure Bags 82 72 6 Intake, IV Titration 45.885 24.147 Amount Esmolol in Sodium 27.09 Chloride Pmx 2.5 gm In Saline 1 250ml.bag @ 25 MCG/KG/MIN 12.9 mls/hr IV .[id number] [facility] Rx#: [id number] Insulin Regular 100 unit 18.795 24.147 In Sodium Chloride 0.9% 100 ml @ Per Protocol IV .Q0M [facility] Rx#:[id number] Output: Chest Tube Drainage 380 330 Mediastinal 100 70 Right Pleural 280 260 Urine 795 575 Other: Voiding Method Indwelling Catheter Indwelling Catheter ABP, PAP, CO, CI - Last Documented Arterial Blood Pressure 103/54 Pulmonary Artery Pressure 42/14 Cardiac Output 4.5 Cardiac Index 2.4 - Constitutional General appearance: Present: cooperative, no acute distress, obese - Respiratory Details: Lungs sounds diminished bilaterally. Respirations even, nonlabored. Currently on 4 L nasal cannula with oxygen saturation 93%. Able to achieve 500 mL on her incentive spirometry. Weak cough. Mediastinal chest tubes to continuous wall suction, 40 mL serosanguineous drainage overnight, 150 mL in the last 24 hours, no air leak present. Right pleural chest tube to continuous wall suction, 190 mL serosanguineous drainage overnight, 550 mL the last 24 hours, no air leak present. - Cardiovascular Details: S1, S2 present. Regular rate and rhythm, sinus rhythm on telemetry. Sternum stable. A/V epicardial pacemaker wires present, connected to generator, DDD mode with backup rate 60 bpm. Palpable peripheral pulses bilaterally. No edema present. No calf pain or tenderness noted. Right internal jugular Cordis, left radial arterial line present. Heart hugger in place with patient demonstrating appropriate use. Antiembolism stockings, SCDs present. - Gastrointestinal Gastrointestinal Comment(s): Abdomen soft, nontender, nondistended. Hypoactive bowel sounds present [address]. Tolerating diet. Negative flatus. - Genitourinary Genitourinary Comment(s): Soni discontinued this morning, output overnight 35-60 milliliters per hour. Due to void - Integumentary Integumentary Comment(s): Skin is warm and dry with evidence of diffusion. Anterior chest incision well approximated and covered with dry intact dressing. - Neurologic Neurologic: Present: CNII-XII intact - Musculoskeletal Musculoskeletal: Present: gait normal, strength equal bilaterally - Psychiatric Psychiatric: Present: A&O x's 3, appropriate affect, intact judgment & insight - Allied health notes Allied health notes reviewed: nursing - Labs CBC & Chem 7: 08/19/19 04:00 08/19/19 04:00 Labs: Abnormal Lab Results - Last 24 Hours (Table) 08/18/19 08/18/19 08/18/19 Range/Units 10:21 12:34 14:06 WBC (3.8-10.6) k/uL RBC (3.80-5.40) m/uL Hgb (11.4-16.0) gm/dL Hct (34.0-46.0) % Plt Count (150-450) k/uL Neutrophils # (1.3-7.7) k/uL Sodium (137-145) mmol/L BUN (7-17) mg/dL Glucose (74-99) mg/dL POC Glucose (mg/dL) 126 H 109 H 122 H (75-99) mg/dL AST (14-36) U/L Total Protein (6.3-8.2) g/dL Albumin (3.5-5.0) g/dL 08/18/19 08/18/19 08/18/19 Range/Units 16:19 18:22 20:02 WBC (3.8-10.6) k/uL RBC (3.80-5.40) m/uL Hgb (11.4-16.0) gm/dL Hct (34.0-46.0) % Plt Count (150-450) k/uL Neutrophils # (1.3-7.7) k/uL Sodium (137-145) mmol/L BUN (7-17) mg/dL Glucose (74-99) mg/dL POC Glucose (mg/dL) 156 H 117 H 151 H (75-99) mg/dL AST (14-36) U/L Total Protein (6.3-8.2) g/dL Albumin (3.5-5.0) g/dL 08/18/19 08/18/19 08/19/19 Range/Units 21:37 23:21 01:49 WBC (3.8-10.6) k/uL RBC (3.80-5.40) m/uL Hgb (11.4-16.0) gm/dL Hct (34.0-46.0) % Plt Count (150-450) k/uL Neutrophils # (1.3-7.7) k/uL Sodium (137-145) mmol/L BUN (7-17) mg/dL Glucose (74-99) mg/dL POC Glucose (mg/dL) 182 H 136 H 136 H (75-99) mg/dL AST (14-36) U/L Total Protein (6.3-8.2) g/dL Albumin (3.5-5.0) g/dL 08/19/19 08/19/19 08/19/19 Range/Units 02:49 03:52 04:00 WBC 15.8 H (3.8-10.6) k/uL RBC 2.66 L (3.80-5.40) m/uL Hgb 8.6 L (11.4-16.0) gm/dL Hct 25.8 L (34.0-46.0) % Plt Count 112 L (150-450) k/uL Neutrophils # 12.5 H (1.3-7.7) k/uL Sodium (137-145) mmol/L BUN (7-17) mg/dL Glucose (74-99) mg/dL POC Glucose (mg/dL) 129 H 142 H (75-99) mg/dL AST (14-36) U/L Total Protein (6.3-8.2) g/dL Albumin (3.5-5.0) g/dL 08/19/19 08/19/19 Range/Units 04:00 07:02 WBC (3.8-10.6) k/uL RBC (3.80-5.40) m/uL Hgb (11.4-16.0) gm/dL Hct (34.0-46.0) % Plt Count (150-450) k/uL Neutrophils # (1.3-7.7) k/uL Sodium 129 L (137-145) mmol/L BUN 22 H (7-17) mg/dL Glucose 119 H (74-99) mg/dL POC Glucose (mg/dL) 142 H (75-99) mg/dL AST 69 H (14-36) U/L Total Protein 5.2 L (6.3-8.2) g/dL Albumin 3.2 L (3.5-5.0) g/dL - Imaging and Cardiology Chest x-ray: report reviewed, image reviewed Assessment and Plan Assessment: 1. 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 History of paroxysmal atrial fibrillation on Eliquis for anticoagulation, status post modified pulmonary vein isolation and exclusion of the left atrial appendage 3. Hypertension 4. Hyperlipidemia 5. Arthritis 6. Breast cancer within the last 5 years, status post left mastectomy without radiation currently on Arimidex 7. Postoperative acute blood loss anemia 8. Postoperative atrial tachycardia Plan: 1. Continue aspirin, statin, Plavix, beta moreno therapy. Will increase beta moreno as tolerated. 2. Continue amiodarone. We will reinitiate Eliquis once all lines/tubes have been discontinued, will discontinue Plavix once Eliquis reinitiated 3. Wean O2 as tolerated. Encourage incentive spirometry 10 times every hour while awake. 4. Increase activity, ambulate as tolerated. PT/OT/cardiac rehab following 5. Bronchodilators per pulmonology 6. Pain control with current medication regimen. 7. Will monitor daily labs and x-rays. Electrolyte replacement per protocol. No transfusion at this time. We will give Lasix IV push today 8. Postoperative insulin management per primary care service, patient is not diabetic 9. Discontinue Cordis, arterial line 10. Will discontinue mediastinal chest tubes, continue right pleural chest tube for another 24 hours 11. Soni catheter discontinued this morning. May bladder scan and straight cathed for greater than [address] transfer orders for [facility] cardiac stepdown unit. May transfer when bed available. Discharge planning in progress. Anticipate discharge to home with home care Saturday versus the weekend 13. More recommendations to follow based on patient's progress Time with Patient: Greater than 30
[2019-08-19 11:59] LABS: Glucose,Whole Blood 96 mg/dL (75-99)
[2019-08-19] MEDS: MUPIROCIN 2% OINT 22 GM TUBE NASAL SCH ×2 (12:05→20:56)
[2019-08-19] MEDS: INSULIN ASPART (NovoLOG) 100 UNIT/ML VIAL SQ SCH ×3 (12:22→20:53)
[2019-08-19] MEDS: CYCLOBENZAPRINE 10 MG TAB PO SCH ×3 (12:27→20:55)
--- NOTE | 2019-08-19 14:43 | P.PN ---
Subjective Progress Note Date: 08/19/19 This is a 64-year-old female patient of Dr. Fracisco Casarez with past medical history of paroxysmal atrial fibrillation, gastroesophageal reflux disease, hyper lipidemia, mitral valve prolapse, breast cancer diagnosed in 2016 initially had a lumpectomy followed by simple mastectomy without chemotherapy or radiation, degenerative disc disease of the cervical and lumbar spine. Patient has been brought in the hospital on the care of . surgery status post mitral valve repair with exclusion of left atrial appendage, modified maze procedure and intraoperative transesophageal echocardiogram on 08/17/2019. Patient is seen today in the intensive care unit. She was successfully extubated last evening. Patient is complaining of significant pain in her chest of #9 out of 10. Vital signs at been stable. She denies any flatus. She states she was up in the chair this morning for several hours. She has a mediastinal and right pleural chest tubes in place, swans Cortis and left radial artery line. Patient had episode of SVT this morning status post medicine when converted to normal sinus rhythm. 3/4: Patient has been afebrile, heart rate 74, blood pressure 103/54, pulse ox 94% on 5 L nasal cannula. Repeat blood work reveals W BC 15.8, hemoglobin 8.6, platelet count 112. Sodium 129, BUN 22 and creatinine 0.84. Blood sugars running between 119 and 142. AST 69. Chest x-ray reveals bilateral pleural potential changes stable. Basilar postoperative atelectasis favored over pn eumonia. The patient is seen today sitting in a recliner. Patient's pain is better controlled today. She is complaining of spasms in her back and Flexeril but will be increased to 3 times daily. Insulin drip will be discontinued and start NovoLog scale. Patient states that she is not eating very much and does not have much appetite. She states she is passing gas. Soni catheter and Cordis discontinued. Patient is scheduled to have mediastinal chest tubes removed. Objective - Vital Signs Vital signs: Vital Signs Temp 98.5 F 08/19/19 08:00 Pulse 77 08/19/19 08:04 Resp 12 08/19/19 08:00 BP 137/74 08/18/19 22:00 Pulse Ox 94 L 08/19/19 08:00 Intake & Output 08/18/19 08/19/19 08/19/19 18:59 06:59 18:59 Intake Total 527.885 336.147 50.139 Output Total 1175 905 Balance -647.115 -568.853 50.139 Weight 93.7 kg 94.6 kg Intake: IV 482 312 26 CO/CI 20 Lactated Ringers 1,000 ml 380 240 20 @ 20 mls/hr IV .Q24H [facility] Rx#:[id number] Pressure Bags 82 72 6 Intake, IV Titration 45.885 24.147 24.139 Amount Esmolol in Sodium 27.09 Chloride Pmx 2.5 gm In Saline 1 250ml.bag @ 25 MCG/KG/MIN 12.9 mls/hr IV .[id number] [facility] Rx#: [id number] Insulin Regular 100 unit 18.795 24.147 24.139 In Sodium Chloride 0.9% 100 ml @ Per Protocol IV .Q0M [facility] Rx#:[id number] Output: Chest Tube Drainage 380 330 Mediastinal 100 70 Right Pleural 280 260 Urine 795 [id number] Other: Voiding Method Indwelling Catheter Indwelling Catheter ABP, PAP, CO, CI - Last Documented Arterial Blood Pressure 103/54 Pulmonary Artery Pressure 42/14 Cardiac Output 4.5 Cardiac Index 2.4 - Exam Review of Systems Constitutional: Reports poor appetite, Denies anorexia, Denies chills, Denies fatigue, Denies fever, Denies lethargy, Denies malaise Eyes: denies blurred vision, denies pain Ears, nose, mouth and throat: Denies dental pain, Denies dysphagia, Denies nasal congestion, Denies nasal discharge, Denies vertigo Cardiovascular: Reports chest pain, Denies edema, Denies lightheadedness, Denies shortness of breath, Denies syncope Respiratory: Denies cough, Denies cough with sputum, Denies dyspnea, Denies excessive sputum, Denies hemoptysis, Denies home oxygen, Denies respiratory infections, Denies wheezing Gastrointestinal: Reports loss of appetite, Denies abdominal pain, Denies diarrhea, Denies nausea, Denies vomiting Genitourinary: Denies dysuria, Denies hematuria Musculoskeletal: Denies frequent falls, Denies gait dysfunction, Denies myalgias Integumentary: Denies pruritus, Denies rash Neurological: Denies change in mentation, Denies change in speech, Denies numbness, Denies weakness Psychiatric: Denies anxiety, Denies depression Endocrine: Denies fatigue, Denies weight change Physical examination Gen: This is a 64-year-old obese female. She is resting in the ICU in recliner and appears to be comfortable. HEENT: Head is atraumatic, normocephalic. Pupils equal, round. Sclerae is anicteric. NECK: Supple. No JVD. No lymphadenopathy. No thyromegaly. LUNGS: Diminished bilaterally. No wheezes or rhonchi. No intercostal retrac tions. Mediastinal and right pleural chest tubes in place HEART: Regular rate and rhythm. No murmur. ABDOMEN: Soft. Bowel sounds are hypoactive. No masses. No tenderness. EXTREMITIES: No pedal edema. No calf tenderness. Dorsalis pedis +2 bilaterally. NEUROLOGICAL: Patient is awake, alert and oriented x3. Cranial nerves 2 through 12 are grossly intact. - Labs CBC & Chem 7: 08/19/19 04:00 08/19/19 04:00 Labs: Abnormal Lab Results - Last 24 Hours (Table) 08/18/19 08/18/19 08/18/19 Range/Units 12:34 14:06 16:19 WBC (3.8-10.6) k/uL RBC (3.80-5.40) m/uL Hgb (11.4-16.0) gm/dL Hct (34.0-46.0) % Plt Count (150-450) k/uL Neutrophils # (1.3-7.7) k/uL Sodium (137-145) mmol/L BUN (7-17) mg/dL Glucose (74-99) mg/dL POC Glucose (mg/dL) 109 H 122 H 156 H (75-99) mg/dL AST (14-36) U/L Total Protein (6.3-8.2) g/dL Albumin (3.5-5.0) g/dL 08/18/19 08/18/19 08/18/19 Range/Units 18:22 20:02 21:37 WBC (3.8-10.6) k/uL RBC (3.80-5.40) m/uL Hgb (11.4-16.0) gm/dL Hct (34.0-46.0) % Plt Count (150-450) k/uL Neutrophils # (1.3-7.7) k/uL Sodium (137-145) mmol/L BUN (7-17) mg/dL Glucose (74-99) mg/dL POC Glucose (mg/dL) 117 H 151 H 182 H (75-99) mg/dL AST (14-36) U/L Total Protein (6.3-8.2) g/dL Albumin (3.5-5.0) g/dL 08/18/19 08/19/19 08/19/19 Range/Units 23:21 01:49 02:49 WBC (3.8-10.6) k/uL RBC (3.80-5.40) m/uL Hgb (11.4-16.0) gm/dL Hct (34.0-46.0) % Plt Count (150-450) k/uL Neutrophils # (1.3-7.7) k/uL Sodium (137-145) mmol/L BUN (7-17) mg/dL Glucose (74-99) mg/dL POC Glucose (mg/dL) 136 H 136 H 129 H (75-99) mg/dL AST (14-36) U/L Total Protein (6.3-8.2) g/dL Albumin (3.5-5.0) g/dL 08/19/19 08/19/19 08/19/19 Range/Units 03:52 04:00 04:00 WBC 15.8 H (3.8-10.6) k/uL RBC 2.66 L (3.80-5.40) m/uL Hgb 8.6 L (11.4-16.0) gm/dL Hct 25.8 L (34.0-46.0) % Plt Count 112 L (150-450) k/uL Neutrophils # 12.5 H (1.3-7.7) k/uL Sodium 129 L (137-145) mmol/L BUN 22 H (7-17) mg/dL Glucose 119 H (74-99) mg/dL POC Glucose (mg/dL) 142 H (75-99) mg/dL AST 69 H (14-36) U/L Total Protein 5.2 L (6.3-8.2) g/dL Albumin 3.2 L (3.5-5.0) g/dL 08/19/19 Range/Units 07:02 WBC (3.8-10.6) k/uL RBC (3.80-5.40) m/uL Hgb (11.4-16.0) gm/dL Hct (34.0-46.0) % Plt Count (150-450) k/uL Neutrophils # (1.3-7.7) k/uL Sodium (137-145) mmol/L BUN (7-17) mg/dL Glucose (74-99) mg/dL POC Glucose (mg/dL) 142 H (75-99) mg/dL AST (14-36) U/L Total Protein (6.3-8.2) g/dL Albumin (3.5-5.0) g/dL Assessment and Plan Plan: 1. Severe mitral valve regurgitation status post mitral valve repair. Continue aspirin, Lipitor 40 mg daily, Plavix 75 mg daily, colchicine 0.6 mg twice daily, Lopressor 25 mg twice daily. Continue current pain management 2. History of paroxysmal atrial fibrillation, currently in a sinus rhythm. Patient has been on eliquis. Continue Lopressor. 3. Episode of SVT converted with adenosine, expected. 4. Hypertension. Continue Lopressor. 5. Hyperlipidemia. Continue atorvastatin. 6. History of breast cancer status post lumpectomy followed by simple mastectomy, no chemotherapy or radiation treatment. Patient is currently on Arimidex. 7. DVT prophylaxis. Heparin subcu. 8. GI prophylaxis. Protonix. 9. Hyperglycemia without a diabetes. Insulin drip will be transitioned to NovoLog scale before meals and at bedtime. Discharge plan: Most likely home with homecare on Saturday. Patient worked with PT and OT today. Impression and plan of care have been directed as dictated by the signing physician. Melissa Wu nurse practitioner acting as scribe for signing physician.
[2019-08-19 16:30] LABS: Glucose,Whole Blood 113 mg/dL (75-99)
[2019-08-19 20:48] LABS: Glucose,Whole Blood 114 mg/dL (75-99)
[2019-08-19] MEDS: SENNOSIDES-DOCUSATE SODIUM 1 EACH TAB PO SCH (20:54)
[2019-08-20] MEDS: ONDANSETRON 4 MG/2 ML VIAL IVP PRN ×2 (03:44→15:28)
[2019-08-20 05:39] LABS: HCT 24.1 % (34.0-46.0); MCH 32.5 pg (25.0-35.0); MCHC 33.4 g/dL (31.0-37.0); MCV 97.4 fL (80.0-100.0); Platelet Count 130 k/uL (150-450); RBC 2.47 m/uL (3.80-5.40); RDW 13.8 % (11.5-15.5); WBC 14.3 k/uL (3.8-10.6)
[2019-08-20 05:54] LABS: Calcium 8.4 mg/dL (8.4-10.2)
[2019-08-20] MEDS ORDERED: SENNOSIDES-DOCUSATE SODIUM 1 EACH TAB PO PRN (06:17)
[2019-08-20] MEDS: KETOROLAC 30 MG/ML 1 ML VIAL IVP SCH ×4 (06:21→23:57)
[2019-08-20] MEDS: HYDROcodone/APAP 7.5-325MG 1 EACH TAB PO PRN (06:21)
[2019-08-20] MEDS: LOPERAMIDE 2 MG CAP PO PRN ×3 (06:21→17:40)
[2019-08-20] MEDS: IPRATROPIUM-ALBUTEROL 3 ML NEB INHALATION SCH ×4 (07:06→21:30)
[2019-08-20 07:19] LABS: Glucose,Whole Blood 97 mg/dL (75-99)
[2019-08-20] MEDS: INSULIN ASPART (NovoLOG) 100 UNIT/ML VIAL SQ SCH ×4 (07:20→20:40)
[2019-08-20] MEDS: PANTOPRAZOLE 40 MG TABLET PO SCH (07:24)
--- NOTE | 2019-08-20 07:56 | PN ---
PROGRESS NOTE Mrs. Santamaria is a 64-year-old female who underwent mitral valve repair. She had prior history of paroxysmal fibrillation. Post surgically, she had episode of SVT. She was nauseated this morning and had diarrhea. She is feeling better at this time. Her breathing is stable. She is denying any significant chest pain. She continued to be in sinus mechanism without any further symptoms of arrhythmia. Hemodynamically, she is stable. She continues to be at this time on aspirin once a day Plavix 75 mg daily, amiodarone 400 mg twice a day, metoprolol tartrate 50 mg twice a day. PHYSICAL EXAMINATION: Blood pressure 108/70 with the heart rate in the 60s. LUNGS: No wheezes. HEART: Regular rate and rhythm. S1, S2. No S3. No rub appreciated. ABDOMEN: Soft, nontender. EXTREMITIES: No edema. LAB DATA: Lab data revealed hemoglobin of 8. BUN and creatinine 25 and 0.9. Her chest x-ray shows no acute infiltrate. IMPRESSION: 1. Status post mitral valve repair. 2. Episode of supraventricular tachycardia, stable. 3. Prior history of atrial fibrillation, paroxysmal, remaining in sinus mechanism at this time. 4. History of hypertension. RECOMMENDATION: I will cut down the dose of her amiodarone, will await the removal of her chest tube to be able to reinitiate anticoagulation with Eliquis and stop the aspirin and Plavix. We will continue to increase her level of activity. MMODL / IJN: [id number] /
[2019-08-20] MEDS ORDERED: TRIMETHOBENZAMIDE 300 MG CAP PO ONE (08:12)
[2019-08-20] MEDS ORDERED: FUROSEMIDE 10 MG/ML 4 ML VIAL IV STA (08:37)
[2019-08-20] MEDS: HEPARIN SODIUM,PORCINE 5,000 UNIT/ML 1 ML VIAL SQ SCH (08:59)
--- NOTE | 2019-08-20 09:05 | XR ---
EXAMINATION TYPE: XR chest 1V portable DATE OF EXAM: 08/20/2019 COMPARISON: 08/19/2019 HISTORY: Post cardiac surgery TECHNIQUE: Single frontal view of the chest is obtained. FINDINGS: Postsurgical changes seen with bilateral consolidation small effusion. Interstitial patter n seen. No pneumothorax. Epicardial lead suggested. Wires seen overlying the right heart border and s hould be correlated clinically. Right-sided chest tube seen. No sizable pneumothorax. IMPRESSION: 1. Chronic pleural-parenchymal changes likely the basis of mild CHF with small effusions. Findings st able. 2. Postoperative change
[2019-08-20] MEDS: CYCLOBENZAPRINE 10 MG TAB PO SCH ×3 (09:36→20:40)
[2019-08-20] MEDS: CHOLECALCIFEROL 1,000 UNIT TAB PO SCH (09:36)
[2019-08-20] MEDS: ATORVASTATIN 40 MG TAB PO SCH (09:36)
[2019-08-20] MEDS: AMIODARONE 200 MG TAB PO SCH ×2 (09:36→20:40)
[2019-08-20] MEDS: COLCHICINE 0.6 MG EACH PO SCH ×2 (09:36→22:05)
[2019-08-20] MEDS: CLOPIDOGREL 75 MG TAB PO SCH (09:36)
[2019-08-20] MEDS: ASPIRIN 81 MG PO SCH (09:36)
[2019-08-20] MEDS: METOPROLOL TARTRATE 50 MG TAB PO SCH ×2 (09:36→20:40)
[2019-08-20] MEDS: MULTIVITAMINS, THERA 1 EACH TAB PO SCH (09:37)
[2019-08-20] MEDS: traMADol 50 MG TAB PO PRN ×2 (09:37→15:27)
[2019-08-20] MEDS: CALCIUM CARBONATE 500 MG CHEWABLE PO PRN (09:37)
[2019-08-20] MEDS: MUPIROCIN 2% OINT 22 GM TUBE NASAL SCH ×2 (09:38→20:41)
--- NOTE | 2019-08-20 09:58 | P.PN ---
Subjective Progress Note Date: 08/20/19 Principal diagnosis: Severe mitral regurgitation and stenosis, status post mitral valve repair, and exclusion of left atrial appendage 64-year-old white female patient with past medical history of arthritis, known history of mitral valve prolapse, paroxysmal atrial fibrillation on Eliquis, past history of breast cancer status post left mastectomy, who was referred for surgical intervention, preop PFT showed FEV1 of 1.95 L or 92% of predicted, normal PFT, who had elective mitral valve repair with exclusion of left atrial appendage, modified maze procedure and intraoperative transesophageal echocardiogram on 08/17/2019. Patient is seen in the postoperative period in the intensive care unit, she sedated, intubated current vent settings are SIAMV mode of ventilation with a rate of 12, tidal volume is 400, FiO2 100% and PEEP of 5. Current drips include lactated Ringer's at rate of 50, Diprivan at 20 mics per kilo per minute, and insulin drip is on standby. Hemodynamically patient is stable, in sinus mechanism, epicardial wires connected to the pacemaker with backup rate of AAI 50, PA pressures are 35/21, CVP is 12, cardiac output is 5.5, cardiac index is 3.0. Postoperative blood work shows white blood cell count of 13.3, hemoglobin is 9.4, INR is 1.3, blood gas showed pO2 of 348, pCO2 of 39, pH of 7.40. Electrolytes and renal profile are all within normal li mits. 2 mediastinal and left pleural chest tube with small amount of serosanguineous output, no air leak. On 08/20/2019 patient seen in follow-up in the intensive care unit. This is postoperative day 3, status post mitral valve repair, with triangular resection of P2, closure of P2, P3 Luiz, construction all 4 radial cord to a 2, complete ring annuloplasty and modified pulmonary vein isolation and exclusion of the left atrial appendage with the [place]. Patient is complaining of nausea and diarrhea today, but no shortness of breath, her pain is under good control, hemodynamically patient is stable, and sinus mechanism with a controlled rate, mediastinal chest tube has been discontinued, right pleural chest tube remains in place and there has been 540 ML of service and was output in last 24 hours from the right pleural chest tube. AV wires are in place, have been grounded, their anticipated to be discontinued today. Lung sounds are diminished, patient denies any respiratory difficulty, she is working on incentive spirometer, today chest x-ray has been reviewed showing chronic pleural parenchymal changes on the basis of mild CHF with small pleural effusions. Noted to be generally swollen today with increased swelling in her arms and legs. She has received a dose of IV Lasix per CT surgery. Objective - Vital Signs Vital signs: Vital Signs Temp 98.5 F 08/20/19 04:00 Pulse 72 08/20/19 07:20 Resp 24 08/20/19 04:00 BP 108/76 08/20/19 04:00 Pulse Ox 94 L 08/20/19 04:00 Intake & Output 08/19/19 08/20/19 08/20/19 18:59 06:59 18:59 Intake Total 232.139 150 Output Total 150 200 Balance 82.139 -50 Intake: IV 208 Lactated Ringers 1,000 ml 160 @ 20 mls/hr IV .Q24H JC Rx#:[id number] Pressure Bags 48 Intake, IV Titration 24.139 Amount Insulin Regular 100 unit 24.139 In Sodium Chloride 0.9% 100 ml @ Per Protocol IV .Q0M JC Rx#:[id number] Oral 150 Output: Urine 150 200 Other: Voiding Method Indwelling Catheter # Voids 1 2 # Bowel Movements 2 ABP, PAP, CO, CI - Last Documented Arterial Blood Pressure 102/48 Pulmonary Artery Pressure 42/14 Cardiac Output 4.5 Cardiac Index 2.4 - Exam GENERAL EXAM: Awake and alert, 64-year-old white female patient, complaining of nausea and diarrhea, but no acute distress HEAD: Normocephalic/atraumatic. EYES: Normal reaction of pupils, equal size. Conjunctiva pink, sclera white. NOSE: Clear with pink turbinates. THROAT: No erythema or exudates. NECK: No masses, no JVD, no thyroid enlargement, no adenopathy. CHEST: No chest wall deformity. Symmetrical expansion. Midsternal incision is clean dry and intact, interval removal of the 2 mediastinal and left pleural chest tube and active to Pleur-evacs with small amount of serosanguineous ou tput, no air leak. AV wires in place, grounded, intrinsic rhythm is sinus rhythm with a rate of 66 LUNGS: Equal air entry with no crackles, wheeze, rhonchi or dullness. CVS: Regular rate and rhythm, normal S1 and S2, no gallops, no murmurs, no rubs ABDOMEN: Soft, nontender. No hepatosplenomegaly, normal bowel sounds, no guarding or rigidity. EXTREMITIES: No clubbing, no edema, no cyanosis, 2+ pulses and upper and lower extremities. MUSCULOSKELETAL: Muscle strength and tone normal. SPINE: No scoliosis or deformity SKIN: No rashes CENTRAL NERVOUS SYSTEM: Alert and oriented 3, No focal deficits, tone is normal in all 4 extremities. PSYCHIATRIC: Alert and oriented 3. Appropriate affect. Intact judgment and insight. - Labs CBC & Chem 7: 08/20/19 05:00 08/20/19 05:00 Labs: Abnormal Lab Results - Last 24 Hours (Table) 08/19/19 08/19/19 08/20/19 Range/Units 16:29 20:47 05:00 WBC 14.3 H (3.8-10.6) k/uL RBC 2.47 L (3.80-5.40) m/uL Hgb 8.0 L (11.4-16.0) gm/dL Hct 24.1 L (34.0-46.0) % Plt Count 130 L (150-450) k/uL Sodium (137-145) mmol/L Chloride (98-107) mmol/L BUN (7-17) mg/dL Glucose (74-99) mg/dL POC Glucose (mg/dL) 113 H 114 H (75-99) mg/dL 08/20/19 Range/Units 05:00 WBC (3.8-10.6) k/uL RBC (3.80-5.40) m/uL Hgb (11.4-16.0) gm/dL Hct (34.0-46.0) % Plt Count (150-450) k/uL Sodium 127 L (137-145) mmol/L Chloride 93 L (98-107) mmol/L BUN 25 H (7-17) mg/dL Glucose 126 H (74-99) mg/dL POC Glucose (mg/dL) (75-99) mg/dL Assessment and Plan Plan: Assessment: #1. Mitral valve prolapse, with severe mitral valve regurgitation with flail of P2, status post sternotomy, mitral valve repair, left atrial appendage exclusion, modified maze procedure, and intraoperative transesophageal echocardiogram, postoperative day 3 #2. Routine ventilator management postop sternotomy, extubated at 5 hours and 20 minutes of the OR exit time on 08/17/2019 #3. Paroxysmal atrial fibrillation, was on Eliquis, currently on hold, currently in sinus mechanism #4. Hyperlipidemia #5. Lifetime nonsmoker, preop PFT showed normal spirometry #6. Postop blood loss anemia, normal outcome of sternotomy and mitral valve repair surgery #7. Hyponatremia, likely hypervolemic, patientn received a dose of IV Lasix #8. Diarrhea, C. diff ruled out Plan: Continue encouraging deep breathing and coughing, continue encouraging incentive spirometry use, today's chest x-ray has been reviewed showing plural effusions, fluid overload, dose of Lasix has been ordered by CT surgery. Patient has been placed on water restriction. Hemodynamically she remains stable, no acute events overnight. We'll continue to follow I performed a history & physical examination of the patient and discussed their management with my nurse practitioner, Jessica Araya. I reviewed the nurse practitioner's note and agree with the documented findings and plan of care. Lung sounds are positive for diminished breath sounds at the bases. The findings and the impression was discussed with the patient. I attest to the documentation by the nurse practitioner. Time with Patient: Less than 30
--- NOTE | 2019-08-20 10:13 | P.PN ---
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 Previous medical history of paroxysmal atrial fibrillation on Eliquis for anticoagulation, hypertension, hyperlipidemia, arthritis, breast cancer within the last 5 years status post left mastectomy without radiation currently on Arimadex. POD #3 complex mitral valve repair with triangular resection of P2, closure of P2, P3 cleft, construction all for radial cord to A2, complete ring annuloplasty using a 34 mm physio-2 ring. Modified pulmonary vein isolation with a box lesion using radiofrequency bipolar clamp from [facility]. Exclusion of the left atrial appendage using a 35 mm after clip. Intraoperative transesophageal echocardiogram and epi-aortic scanning. Postoperative acute blood loss anemia, expected outcome of surgery given hemodilution and cardiopulmonary bypass pump. Postoperative atrial tachycardia, expected Patient's currently sitting up in a recliner in no acute distress. Does complain of post surgical type pain and back pain which is controlled on current medication regimen, denies shortness of breath. She developed diarrhea overnight, C-diff sample sent was negative. In addition, she does have some nausea without emesis. She has had no further episodes of atrial tachycardia. She did ambulate yesterday. Transfer orders were placed yesterday for [address] [place] [address] cardiac step-down unit, no bed available at this time Objective - Vital Signs Vital signs: Vital Signs Temp 98.5 F 08/20/19 04:00 Pulse 72 08/20/19 07:20 Resp 24 08/20/19 04:00 BP 108/76 08/20/19 04:00 Pulse Ox 94 L 08/20/19 04:00 Intake & Output 08/19/19 08/20/19 08/20/19 18:59 06:59 18:59 Intake Total 232.139 150 Output Total 150 200 Balance 82.139 -50 Intake: IV 208 Lactated Ringers 1,000 ml 160 @ 20 mls/hr IV .Q24H JC Rx#:[id number] Pressure Bags 48 Intake, IV Titration 24.139 Amount Insulin Regular 100 unit 24.139 In Sodium Chloride 0.9% 100 ml @ Per Protocol IV .Q0M JC Rx#:[id number] Oral 150 Output: Urine 150 200 Other: Voiding Method Indwelling Catheter # Voids 1 2 # Bowel Movements 2 ABP, PAP, CO, CI - Last Documented Arterial Blood Pressure 102/48 Pulmonary Artery Pressure 42/14 Cardiac Output 4.5 Cardiac Index 2.4 - Constitutional General appearance: Present: cooperative, no acute distress, obese - Respiratory Details: Lungs sounds diminished bilaterally. Respirations even, nonlabored. Currently on 6 L nasal cannula with oxygen saturation 94%. Able to achieve 750 mL on her incentive spirometry. Weak cough. Right pleural chest tube to continuous wall suction, 190 mL serous drainage overnight, 400 mL the last 24 hours, no air leak present. - Cardiovascular Details: S1, S2 present. Regular rate and rhythm, sinus rhythm on telemetry. Sternum stable. A/V epicardial pacemaker wires present, grounded. Palpable peripheral pulses bilaterally. No edema present. No calf pain or tenderness noted. Heart hugger in place with patient demonstrating appropriate use. Antiembolism stockings, SCDs present. - Gastrointestinal Gastrointestinal Comment(s): Abdomen soft, nontender, nondistended. Active bowel sounds present 4 quadrants. Tolerating diet. Positive diarrhea, negative C. diff. - Genitourinary Genitourinary Comment(s): Continues to void clear, yellow urine. Unable to measure amount due to mixture with diarrhea - Integumentary Integumentary Comment(s): Skin is warm and dry with evidence of diffusion. Anterior chest incision well approximated and covered with dry intact dressing. - Neurologic Neurologic: Present: CNII-XII intact - Musculoskeletal Musculoskeletal: Present: gait normal, strength equal bilaterally - Psychiatric Psychiatric: Present: A&O x's 3, appropriate affect, intact judgment & insight - Allied health notes Allied health notes reviewed: nursing - Labs CBC & Chem 7: 08/20/19 05:00 08/20/19 05:00 Labs: Abnormal Lab Results - Last 24 Hours (Table) 08/19/19 08/19/19 08/20/19 Range/Units 16:29 20:47 05:00 WBC 14.3 H (3.8-10.6) k/uL RBC 2.47 L (3.80-5.40) m/uL Hgb 8.0 L (11.4-16.0) gm/dL Hct 24.1 L (34.0-46.0) % Plt Count 130 L (150-450) k/uL Sodium (137-145) mmol/L Chloride (98-107) mmol/L BUN (7-17) mg/dL Glucose (74-99) mg/dL POC Glucose (mg/dL) 113 H 114 H (75-99) mg/dL 08/20/19 Range/Units 05:00 WBC (3.8-10.6) k/uL RBC (3.80-5.40) m/uL Hgb (11.4-16.0) gm/dL Hct (34.0-46.0) % Plt Count (150-450) k/uL Sodium 127 L (137-145) mmol/L Chloride 93 L (98-107) mmol/L BUN 25 H (7-17) mg/dL Glucose 126 H (74-99) mg/dL POC Glucose (mg/dL) (75-99) mg/dL - Imaging and Cardiology Chest x-ray: report reviewed, image reviewed Assessment and Plan Assessment: 1. 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 History of paroxysmal atrial fibrillation on Eliquis for anticoagulation, status post modified pulmonary vein isolation and exclusion of the left atrial appendage 3. Hypertension 4. Hyperlipidemia 5. Arthritis 6. Breast cancer within the last 5 years, status post left mastectomy without radiation currently on Arimidex 7. Postoperative acute blood loss anemia 8. Postoperative atrial tachycardia Plan: 1. Continue low-dose aspirin, statin, beta moreno therapy. Will increase beta moreno as tolerated. Will discontinue Plavix 2. Continue amiodarone. Will reinitiate Eliquis today 3. Wean O2 as tolerated. Encourage incentive spirometry 10 times every hour while awake. 4. Increase activity, ambulate as tolerated. PT/OT/cardiac rehab following 5. Bronchodilators per pulmonology 6. Pain control with current medication regimen. [place] discontinued, Ultram added as patient tolerates this at home 7. Will monitor daily labs and x-rays. Electrolyte replacement per protocol. No transfusion at this time. We will give Lasix IV push today 8. Postoperative insulin management per primary care service, patient is not diabetic 9. Epicardial pacemaker wires discontinued without incident. Patient to remain on bedrest for 1 hour 10. Will discontinue right pleural chest tube 11. Imodium and it for diarrhea. 12. Transfer orders placed for [address] [place] [address] cardiac stepdown unit yesterday. May transfer when bed available. Discharge planning in progress. Anticipate discharge to home with home care [facility] versus the weekend 13. More recommendations to follow based on patient's progress Time with Patient: Greater than 30
--- NOTE | 2019-08-20 11:29 | P.PN ---
Subjective Progress Note Date: 08/20/19 This is a 64-year-old female patient of Dr. Fracisco Casarez with past medical history of paroxysmal atrial fibrillation, gastroesophageal reflux disease, hyper lipidemia, mitral valve prolapse, breast cancer diagnosed in 2016 initially had a lumpectomy followed by simple mastectomy without chemotherapy or radiation, degenerative disc disease of the cervical and lumbar spine. Patient has been brought in the hospital on the care of . surgery status post mitral valve repair with exclusion of left atrial appendage, modified maze procedure and intraoperative transesophageal echocardiogram on 08/17/2019. Patient is seen today in the intensive care unit. She was successfully extubated last evening. Patient is complaining of significant pain in her chest of #9 out of 10. Vital signs at been stable. She denies any flatus. She states she was up in the chair this morning for several hours. She has a mediastinal and right pleural chest tubes in place, swans Cortis and left radial artery line. Patient had episode of SVT this morning status post medicine when converted to normal sinus rhythm. 08/18: Patient has been afebrile, heart rate 74, blood pressure 103/54, pulse ox 94% on 5 L nasal cannula. Repeat blood work reveals W BC 15.8, hemoglobin 8.6, platelet count 112. Sodium 129, BUN 22 and creatinine 0.84. Blood sugars running between 119 and 142. AST 69. Chest x-ray reveals bilateral pleural potential changes stable. Basilar postoperative atelectasis favored over pn eumonia. The patient is seen today sitting in a recliner. Patient's pain is better controlled today. She is complaining of spasms in her back and Flexeril but will be increased to 3 times daily. Insulin drip will be discontinued and start NovoLog scale. Patient states that she is not eating very much and does not have much appetite. She states she is passing gas. Soni catheter and Cordis discontinued. Patient is scheduled to have mediastinal chest tubes removed. 08/19: Patient is afebrile, heart rate 78, blood pressure 111/76, pulse ox 92% on 6 L nasal cannula. Repeat blood work reveals WBC 14.3, hemoglobin 8, platelet count 130, sodium 127, potassium 4.0, chloride 93, CO2 24, BUN 25 and creatinine 0.9. Capillary blood glucose running between 97 and 126. Patient is currently on NovoLog scale only. Patient states that she is not sleeping very well. Melatonin will be added. She is complaining of some nausea and not able to eat. She denies any vomiting. She did have diarrhea starting last evening and C. difficile toxin was negative. She states she only ate half a banana this morning. She complains of lower extremity edema which is worsened today and also shortness of breath with ambulation. She was given Lasix 40 mg IV this morning with diuresing. Cardiology has transition patient to amiodarone oral. Patient is waiting for a bed on the cardiac stepdown unit. Objective - Vital Signs Vital signs: Vital Signs Temp 98.5 F 08/20/19 04:00 Pulse 72 08/20/19 07:20 Resp 24 08/20/19 04:00 BP 108/76 08/20/19 04:00 Pulse Ox 94 L 08/20/19 04:00 Intake & Output 08/19/19 08/20/19 08/20/19 18:59 06:59 18:59 Intake Total 232.139 150 Output Total 150 200 Balance 82.139 -50 Intake: IV 208 Lactated Ringers 1,000 ml 160 @ 20 mls/hr IV .Q24H JC Rx#:[id number] Pressure Bags 48 Intake, IV Titration 24.139 Amount Insulin Regular 100 unit 24.139 In Sodium Chloride 0.9% 100 ml @ Per Protocol IV .Q0M JC Rx#:[id number] Oral 150 Output: Urine 150 200 Other: Voiding Method Indwelling Catheter # Voids 1 2 # Bowel Movements 2 ABP, PAP, CO, CI - Last Documented Arterial Blood Pressure 102/48 Pulmonary Artery Pressure 42/14 Cardiac Output 4.5 Cardiac Index 2.4 - Exam Review of Systems Constitutional: Reports poor appetite, Denies anorexia, Denies chills, Denies fatigue, Denies fever, Denies lethargy, Denies malaise Eyes: denies blurred vision, denies pain Ears, nose, mouth and throat: Denies dental pain, Denies dysphagia, Denies nasal congestion, Denies nasal discharge, Denies vertigo Cardiovascular: Reports chest pain, Denies edema, Denies lightheadedness, Denies shortness of breath, Denies syncope Respiratory: Denies cough, Denies cough with sputum, Denies dyspnea, Denies excessive sputum, Denies hemoptysis, Denies home oxygen, Denies respiratory infections, Denies wheezing Gastrointestinal: Reports loss of appetite, Denies abdominal pain, reports diarrhea, reports nausea, Denies vomiting Genitourinary: Denies dysuria, Denies hematuria Musculoskeletal: Denies frequent falls, Denies gait dysfunction, Denies myalgias Integumentary: Denies pruritus, Denies rash Neurological: Denies change in mentation, Denies change in speech, Denies numbness, Denies weakness Psychiatric: Denies anxiety, Denies depression, reports insomnia Endocrine: Denies fatigue, Denies weight change Physical examination Gen: This is a 64-year-old obese female. She is resting in the ICU in recliner and appears to be comfortable. HEENT: Head is atraumatic, normocephalic. Pupils equal, round. Sclerae is anicteric. NECK: Supple. No JVD. No lymphadenopathy. No thyromegaly. LUNGS: Diminished bilaterally. No wheezes or rhonchi. No intercostal retractions. Mediastinal and right pleural chest tubes in place HEART: Regular rate and rhythm. No murmur. ABDOMEN: Soft. Bowel sounds are hypoactive. No masses. No tenderness. EXTREMITIES: 1+ bilateral pedal edema. No calf tenderness. Dorsalis pedis +2 bilaterally. NEUROLOGICAL: Patient is awake, alert and oriented x3. Cranial nerves 2 through 12 are grossly intact. - Labs CBC & Chem 7: 08/20/19 05:00 08/20/19 05:00 Labs: Abnormal Lab Results - Last 24 Hours (Table) 08/19/19 08/19/19 08/20/19 Range/Units 16:29 20:47 05:00 WBC 14.3 H (3.8-10.6) k/uL RBC 2.47 L (3.80-5.40) m/uL Hgb 8.0 L (11.4-16.0) gm/dL Hct 24.1 L (34.0-46.0) % Plt Count 130 L (150-450) k/uL Sodium (137-145) mmol/L Chloride (98-107) mmol/L BUN (7-17) mg/dL Glucose (74-99) mg/dL POC Glucose (mg/dL) 113 H 114 H (75-99) mg/dL 08/20/19 Range/Units 05:00 WBC (3.8-10.6) k/uL RBC (3.80-5.40) m/uL Hgb (11.4-16.0) gm/dL Hct (34.0-46.0) % Plt Count (150-450) k/uL Sodium 127 L (137-145) mmol/L Chloride 93 L (98-107) mmol/L BUN 25 H (7-17) mg/dL Glucose 126 H (74-99) mg/dL POC Glucose (mg/dL) (75-99) mg/dL Assessment and Plan Plan: 1. Severe mitral valve regurgitation status post mitral valve repair. Continue aspirin, Lipitor 40 mg daily, Plavix 75 mg daily, colchicine 0.6 mg twice daily, Lopressor 25 mg twice daily. Continue current pain management 2. History of paroxysmal atrial fibrillation, currently in a sinus rhythm. Eliquis has been resumed. Continue Lopressor. Patient started on amiodarone 200 mg twice daily. 3. Episode of SVT converted with adenosine, expected. 4. Hypertension. Continue Lopressor. 5. Hyperlipidemia. Continue atorvastatin. 6. History of breast cancer status post lumpectomy followed by simple mastectom y, no chemotherapy or radiation treatment. Patient is currently on Arimidex. 7. DVT prophylaxis. Heparin subcu. 8. GI prophylaxis. Protonix. 9. Hyperglycemia without diabetes. Continue NovoLog scale before meals and at bedtime. 10. Diarrhea. C. difficile toxin negative. 11. Chronic back pain and spasms. Flexeril 10 mg 3 times daily. 12. Insomnia. Melatonin added. Discharge plan: Most likely home with homecare on Saturday. Patient worked with PT and OT today. Impression and plan of care have been directed as dictated by the signing physician. Melissa Wu nurse practitioner acting as scribe for signing physician.
[2019-08-20 12:04] LABS: Glucose,Whole Blood 127 mg/dL (75-99)
[2019-08-20 17:00] LABS: Calcium 8.4 mg/dL (8.4-10.2); Potassium 3.7 mmol/L (3.5-5.1)
[2019-08-20 17:17] LABS: Glucose,Whole Blood 111 mg/dL (75-99)
[2019-08-20] MEDS ORDERED: POTASSIUM CHLORIDE ER 20 MEQ TAB.ER PO SCH (18:00)
[2019-08-20 20:03] LABS: Glucose,Whole Blood 106 mg/dL (75-99)
[2019-08-20] MEDS: APIXABAN 5 MG TAB PO SCH (20:40)
[2019-08-20] MEDS: MELATONIN 3 MG TABLET PO SCH (20:40)
[2019-08-21 06:05] LABS: HCT 23.5 % (34.0-46.0); HGB 7.9 gm/dL (11.4-16.0); MCH 32.7 pg (25.0-35.0); MCHC 33.6 g/dL (31.0-37.0); MCV 97.5 fL (80.0-100.0); Mean Platelet Volume 7.4; Platelet Count 161 k/uL (150-450); RBC 2.41 m/uL (3.80-5.40); RDW 13.9 % (11.5-15.5); WBC 9.7 k/uL (3.8-10.6)
[2019-08-21 06:17] LABS: Calcium 8.3 mg/dL (8.4-10.2); Magnesium 2.4 mg/dL (1.6-2.3); Potassium 3.6 mmol/L (3.5-5.1)
[2019-08-21] MEDS ORDERED: POTASSIUM CHLORIDE ER 20 MEQ TAB.ER PO STA (06:19)
[2019-08-21 06:32] LABS: Glucose,Whole Blood 118 mg/dL (75-99)
[2019-08-21] MEDS: INSULIN ASPART (NovoLOG) 100 UNIT/ML VIAL SQ SCH ×4 (06:33→21:09)
[2019-08-21] MEDS: PANTOPRAZOLE 40 MG TABLET PO SCH (06:50)
[2019-08-21] MEDS: KETOROLAC 30 MG/ML 1 ML VIAL IVP SCH ×4 (06:50→23:41)
[2019-08-21] MEDS: CYCLOBENZAPRINE 10 MG TAB PO SCH ×4 (06:55→21:31)
[2019-08-21] MEDS: ONDANSETRON 4 MG/2 ML VIAL IVP PRN (06:57)
[2019-08-21] MEDS ORDERED: FUROSEMIDE 10 MG/ML 4 ML VIAL IV STA (07:48)
--- NOTE | 2019-08-21 08:53 | XR ---
EXAMINATION TYPE: XR chest 2V DATE OF EXAM: 08/21/2019 COMPARISON: 08/20/2019 TECHNIQUE: PA and lateral views submitted. HISTORY: Post cardiac surgery FINDINGS: The heart is enlarged and is postoperative change. Bilateral consolidation and pleural effusion. Inte rstitial pattern noted. There is no pneumothorax. Arthropathy of the shoulders. Hypertrophic and dege nerative change of the spine. IMPRESSION: 1. Bilateral infiltrate with small effusion correlate for mild CHF stable in appearance. Otherwise co nsider underlying pneumonia.
[2019-08-21] MEDS: IPRATROPIUM-ALBUTEROL 3 ML NEB INHALATION SCH ×4 (09:04→21:26)
[2019-08-21] MEDS: AMIODARONE 200 MG TAB PO SCH ×2 (09:06→21:30)
[2019-08-21] MEDS: CHOLECALCIFEROL 1,000 UNIT TAB PO SCH (09:06)
[2019-08-21] MEDS: METOPROLOL TARTRATE 50 MG TAB PO SCH ×2 (09:06→21:31)
[2019-08-21] MEDS: ASPIRIN 81 MG PO SCH (09:06)
[2019-08-21] MEDS: APIXABAN 5 MG TAB PO SCH ×2 (09:06→21:30)
[2019-08-21] MEDS: LOPERAMIDE 2 MG CAP PO PRN ×2 (09:06→15:43)
[2019-08-21] MEDS: MULTIVITAMINS, THERA 1 EACH TAB PO SCH (09:06)
[2019-08-21] MEDS: ATORVASTATIN 40 MG TAB PO SCH (09:06)
[2019-08-21] MEDS: traMADol 50 MG TAB PO PRN ×2 (09:18→15:43)
--- NOTE | 2019-08-21 10:06 | P.PN ---
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 Previous medical history of paroxysmal atrial fibrillation on Eliquis for anticoagulation, hypertension, hyperlipidemia, arthritis, breast cancer within the last 5 years status post left mastectomy without radiation currently on Arimadex. POD #4 complex mitral valve repair with triangular resection of P2, closure of P2, P3 cleft, construction all for radial cord to A2, complete ring annuloplasty using a 34 mm physio-2 ring. Modified pulmonary vein isolation with a box lesion using radiofrequency bipolar clamp from aftercare. Exclusion of the left atrial appendage using a 35 mm after clip. Intraoperative transesophageal echocardiogram and epi-aortic scanning. Postoperative acute blood loss anemia, expected outcome of surgery given hemodilution and cardiopulmonary bypass pump. Postoperative atrial tachycardia, expected Postoperative diarrhea, unexpected but potential outcome secondary to medications Patient's currently sitting up in a recliner in no acute distress on the cardiac stepdown unit. States post surgical type pain is controlled on current medication regimen, denies shortness of breath. Does complain of cramping in her back left scapular region. Continues with diarrhea although slowing down. She did ambulate in the hallway yesterday. All lines, tubes, wires have been discontinued and patient was reinitiated on her anticoagulation. No other new concerns. Objective - Vital Signs Vital signs: Vital Signs Temp 98.2 F 08/21/19 08:00 Pulse 74 08/21/19 09:04 Resp 18 08/21/19 08:00 BP 111/67 08/21/19 08:00 Pulse Ox 96 08/21/19 08:00 Intake & Output 08/20/19 08/21/19 08/21/19 18:59 06:59 18:59 Intake Total 960 Output Total 900 1100 Balance 60 -1100 Weight 92.3 kg Intake: Oral 960 Output: Urine 200 850 Stool 700 250 Other: Voiding Method Bedside Commode Bedside Commode # Voids 0 1 # Bowel Movements 1 ABP, PAP, CO, CI - Last Documented Arterial Blood Pressure 102/48 Pulmonary Artery Pressure 42/14 Cardiac Output 4.5 Cardiac Index 2.4 - Constitutional General appearance: Present: cooperative, no acute distress, obese - Respiratory Details: Lungs sounds diminished bilaterally. Respirations even, nonlabored. Currently on room air with oxygen saturation 96%. Able to achieve 1250 mL on her incentive spirometry. Weak cough. - Cardiovascular Details: S1, S2 present. Regular rate and rhythm, sinus rhythm on telemetry. Sternum stable. Palpable peripheral pulses bilaterally. Trace generalized edema present. No calf pain or tenderness noted. Heart hugger in place with patient demonstrating appropriate use. Antiembolism stockings, SCDs present. - Gastrointestinal Gastrointestinal Comment(s): Abdomen soft, nontender, nondistended. Active bowel sounds present 4 quadrants. Tolerating diet. Positive diarrhea, negative C. diff. - Genitourinary Genitourinary Comment(s): Continues to void clear, yellow urine. - Integumentary Integumentary Comment(s): Skin is warm and dry with evidence of diffusion. Anterior chest incision well approximated and covered with dry intact dressing. - Neurologic Neurologic: Present: CNII-XII intact - Musculoskeletal Musculoskeletal: Present: gait normal, strength equal bilaterally - Psychiatric Psychiatric: Present: A&O x's 3, appropriate affect, intact judgment & insight - Allied health notes Allied health notes reviewed: nursing - Labs CBC & Chem 7: 08/21/19 05:25 08/21/19 05:25 Labs: Abnormal Lab Results - Last 24 Hours (Table) 08/20/19 08/20/19 08/20/19 Range/Units 12:03 16:25 17:14 RBC (3.80-5.40) m/uL Hgb (11.4-16.0) gm/dL Hct (34.0-46.0) % Sodium 129 L (137-145) mmol/L Chloride 93 L (98-107) mmol/L BUN 25 H (7-17) mg/dL Glucose 103 H (74-99) mg/dL POC Glucose (mg/dL) 127 H 111 H (75-99) mg/dL Calcium (8.4-10.2) mg/dL Magnesium (1.6-2.3) mg/dL 08/20/19 08/21/19 08/21/19 Range/Units 20:01 05:25 05:25 RBC 2.41 L (3.80-5.40) m/uL Hgb 7.9 L (11.4-16.0) gm/dL Hct 23.5 L (34.0-46.0) % Sodium 129 L (137-145) mmol/L Chloride 95 L (98-107) mmol/L BUN 23 H (7-17) mg/dL Glucose (74-99) mg/dL POC Glucose (mg/dL) 106 H (75-99) mg/dL Calcium 8.3 L (8.4-10.2) mg/dL Magnesium 2.4 H (1.6-2.3) mg/dL 08/21/19 Range/Units 06:27 RBC (3.80-5.40) m/uL Hgb (11.4-16.0) gm/dL Hct (34.0-46.0) % Sodium (137-145) mmol/L Chloride (98-107) mmol/L BUN (7-17) mg/dL Glucose (74-99) mg/dL POC Glucose (mg/dL) 118 H (75-99) mg/dL Calcium (8.4-10.2) mg/dL Magnesium (1.6-2.3) mg/dL - Imaging and Cardiology Chest x-ray: report reviewed, image reviewed Assessment and Plan Assessment: 1. 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 History of paroxysmal atrial fibrillation on Eliquis for anticoagulation, status post modified pulmonary vein isolation and exclusion of the left atrial appendage 3. Hypertension 4. Hyperlipidemia 5. Arthritis 6. Breast cancer within the last 5 years, status post left mastectomy without radiation currently on Arimidex 7. Postoperative acute blood loss anemia 8. Postoperative atrial tachycardia Plan: 1. Continue low-dose aspirin, statin, beta moreno therapy. Will increase beta moreno as tolerated. 2. Continue amiodarone. Continue Eliquis 3. Encourage incentive spirometry 10 times every hour while awake. 4. Increase activity, ambulate as tolerated. PT/OT/cardiac rehab following 5. Bronchodilators per pulmonology 6. Pain control with current medication regimen. 7. Will monitor daily labs and x-rays. Electrolyte replacement per protocol. No transfusion at this time. We will give Lasix IV push today 8. Postoperative insulin management per primary care service, patient is not diabetic 9. Flexeril increased per primary and Melatonin added 10. Imodium for diarrhea. Colchicine discontinued 11. Discharge planning in progress. Anticipate discharge to home with home care this weekend 12. More recommendations to follow based on patient's progress Time with Patient: Greater than 30
[2019-08-21 11:44] LABS: Glucose,Whole Blood 96 mg/dL (75-99)
--- NOTE | 2019-08-21 12:20 | PN ---
PROGRESS NOTE Mrs. Santamaria is a 64-year-old female who presented with mitral regurgitation underwent mitral valve repair. She is doing well this morning, feeling better overall. Her breathing is better. She is ambulating. Her nausea is improving. No dizziness. She continues to be in sinus mechanism without any further episode of SVT. She continued to be on amiodarone 200 mg twice a day, Eliquis 5 mg twice a day, aspirin once a day, metoprolol tartrate 50 mg twice a day. PHYSICAL EXAMINATION: Blood pressure 111/60 with the heart rate in the 70s. LUNGS: With no wheezes. HEART: Regular rate and rhythm. S1, S2. No S3. No rub. ABDOMEN: Soft, nontender. EXTREMITIES: No significant edema. LAB DATA: Lab data revealed a hemoglobin 7.9, BUN and creatinine 23 and 0.8. Hemoglobin of 3.6. Her magnesium is 2.4. IMPRESSION: 1. Status post mitral valve repair, stable. 2. Episode of paroxysmal supraventricular tachycardia, remains in sinus mechanism. 3. History of atrial fibrillation, back on anticoagulation. 4. History of hypertension. RECOMMENDATION: From the cardiac standpoint, will continue increasing her level of activity. I will expect that she should be able to be discharged home soon and then follow up as an outpatient to taper down the dose of the amiodarone. MMODL / IJN: [id number] /
--- NOTE | 2019-08-21 12:44 | P.PN ---
Subjective Progress Note Date: 08/21/19 This is a 64-year-old female patient of Dr. Fracisco Casarez with past medical history of paroxysmal atrial fibrillation, gastroesophageal reflux disease, hyper lipidemia, mitral valve prolapse, breast cancer diagnosed in 2016 initially had a lumpectomy followed by simple mastectomy without chemotherapy or radiation, degenerative disc disease of the cervical and lumbar spine. Patient has been brought in the hospital on the care of . surgery status post mitral valve repair with exclusion of left atrial appendage, modified maze procedure and intraoperative transesophageal echocardiogram on 08/17/2019. Patient is seen today in the intensive care unit. She was successfully extubated last evening. Patient is complaining of significant pain in her chest of #9 out of 10. Vital signs at been stable. She denies any flatus. She states she was up in the chair this morning for several hours. She has a mediastinal and right pleural chest tubes in place, swans Cortis and left radial artery line. Patient had episode of SVT this morning status post medicine when converted to normal sinus rhythm. 08/18: Patient has been afebrile, heart rate 74, blood pressure 103/54, pulse ox 94% on 5 L nasal cannula. Repeat blood work reveals W BC 15.8, hemoglobin 8.6, platelet count 112. Sodium 129, BUN 22 and creatinine 0.84. Blood sugars running between 119 and 142. AST 69. Chest x-ray reveals bilateral pleural potential changes stable. Basilar postoperative atelectasis favored over pn eumonia. The patient is seen today sitting in a recliner. Patient's pain is better controlled today. She is complaining of spasms in her back and Flexeril but will be increased to 3 times daily. Insulin drip will be discontinued and start NovoLog scale. Patient states that she is not eating very much and does not have much appetite. She states she is passing gas. Soni catheter and Cordis discontinued. Patient is scheduled to have mediastinal chest tubes removed. 08/19: Patient is afebrile, heart rate 78, blood pressure 111/76, pulse ox 92% on 6 L nasal cannula. Repeat blood work reveals WBC 14.3, hemoglobin 8, platelet count 130, sodium 127, potassium 4.0, chloride 93, CO2 24, BUN 25 and creatinine 0.9. Capillary blood glucose running between 97 and 126. Patient is currently on NovoLog scale only. Patient states that she is not sleeping very well. Melatonin will be added. She is complaining of some nausea and not able to eat. She denies any vomiting. She did have diarrhea starting last evening and C. difficile toxin was negative. She states she only ate half a banana this morning. She complains of lower extremity edema which is worsened today and also shortness of breath with ambulation. She was given Lasix 40 mg IV this morning with diuresing. Cardiology has transition patient to amiodarone oral. Patient is waiting for a bed on the cardiac stepdown unit. 08/20: Patient is seen today on the cardiac stepdown unit. Patient is complaining of charley horses in the back of her ribs. No significant pain to the chest area. She states her breathing is improved today. Chest is been discontinued. Cardiology has resumed eliquis, aspirin. Amiodarone currently on 200 mg twice daily. Repeat chest x-ray reveals bilateral infiltrate with small effusion correlate for mild heart failure. Otherwise consider underlying pneumonia. Patient has been afebrile, heart rate 78, blood pressure 99/64, pulse ox 92% on room air. ekg monitor tech is in normal sinus rhythm. WBC 9.7, hemoglobin 7.9, platelet count 161. Sodium 129, potassium 3.6, chloride 95, CO2 29, BUN 23 creatinine 0.8. Blood sugars running between 88 and 118. Magnesium 2.4. Patient has been working with PT and OT. Discharge plan is home with [facility]NA. Objective - Vital Signs Vital signs: Vital Signs Temp 98.2 F 08/21/19 08:00 Pulse 78 08/21/19 09:14 Resp 18 08/21/19 08:00 BP 111/67 08/21/19 08:00 Pulse Ox 96 08/21/19 08:00 Intake & Output 08/20/19 08/21/19 08/21/19 18:59 06:59 18:59 Intake Total 960 100 Output Total 900 1100 Balance 60 -1100 100 Weight 92.3 kg Intake: Oral 960 100 Output: Urine 200 850 Stool 700 250 Other: Voiding Method Bedside Commode Bedside Commode Bedside Commode # Voids 0 1 # Bowel Movements 1 ABP, PAP, CO, CI - Last Documented Arterial Blood Pressure 102/48 Pulmonary Artery Pressure 42/14 Cardiac Output 4.5 Cardiac Index 2.4 - Exam Review of Systems Constitutional: Reports poor appetite, Denies anorexia, Denies chills, Denies fatigue, Denies fever, Denies lethargy, Denies malaise Eyes: denies blurred vision, denies pain Ears, nose, mouth and throat: Denies dental pain, Denies dysphagia, Denies nasal congestion, Denies nasal discharge, Denies vertigo Cardiovascular: Denies chest pain, Denies edema, Denies lightheadedness, Denies shortness of breath, Denies syncope Respiratory: Denies cough, Denies cough with sputum, Denies dyspnea, Denies excessive sputum, Denies hemoptysis, Denies home oxygen, Denies respiratory infections, Denies wheezing Gastrointestinal: Reports loss of appetite, Denies abdominal pain, reports diarrhea, reports nausea, Denies vomiting Genitourinary: Denies dysuria, Denies hematuria Musculoskeletal: Denies frequent falls, Denies gait dysfunction, Denies myalgias Integumentary: Denies pruritus, Denies rash Neurological: Denies change in mentation, Denies change in speech, Denies numbness, Denies weakness Psychiatric: Denies anxiety, Denies depression, reports insomnia Endocrine: Denies fatigue, Denies weight change Physical examination Gen: This is a 64-year-old obese female. She is resting in chair and appears to be comfortable. HEENT: Head is atraumatic, normocephalic. Pupils equal, round. Sclerae is anicteric. NECK: Supple. No JVD. No lymphadenopathy. No thyromegaly. LUNGS: Diminished bilaterally. No wheezes or rhonchi. No intercostal retractions. HEART: Regular rate and rhythm. No murmur. ABDOMEN: Soft. Bowel sounds are hypoactive. No masses. No tenderness. EXTREMITIES: Trace bilateral pedal edema. No calf tenderness. Dorsalis pedis +2 bilaterally. NEUROLOGICAL: Patient is awake, alert and oriented x3. Cranial nerves 2 through 12 are grossly intact. - Labs CBC & Chem 7: 08/21/19 05:25 08/21/19 05:25 Labs: Abnormal Lab Results - Last 24 Hours (Table) 08/20/19 08/20/19 08/20/19 Range/Units 12:03 16:25 17:14 RBC (3.80-5.40) m/uL Hgb (11.4-16.0) gm/dL Hct (34.0-46.0) % Sodium 129 L (137-145) mmol/L Chloride 93 L (98-107) mmol/L BUN 25 H (7-17) mg/dL Glucose 103 H (74-99) mg/dL POC Glucose (mg/dL) 127 H 111 H (75-99) mg/dL Calcium (8.4-10.2) mg/dL Magnesium (1.6-2.3) mg/dL 08/20/19 08/21/19 08/21/19 Range/Units 20:01 05:25 05:25 RBC 2.41 L (3.80-5.40) m/uL Hgb 7.9 L (11.4-16.0) gm/dL Hct 23.5 L (34.0-46.0) % Sodium 129 L (137-145) mmol/L Chloride 95 L (98-107) mmol/L BUN 23 H (7-17) mg/dL Glucose (74-99) mg/dL POC Glucose (mg/dL) 106 H (75-99) mg/dL Calcium 8.3 L (8.4-10.2) mg/dL Magnesium 2.4 H (1.6-2.3) mg/dL 08/21/19 Range/Units 06:27 RBC (3.80-5.40) m/uL Hgb (11.4-16.0) gm/dL Hct (34.0-46.0) % Sodium (137-145) mmol/L Chloride (98-107) mmol/L BUN (7-17) mg/dL Glucose (74-99) mg/dL POC Glucose (mg/dL) 118 H (75-99) mg/dL Calcium (8.4-10.2) mg/dL Magnesium (1.6-2.3) mg/dL Assessment and Plan Plan: 1. Severe mitral valve regurgitation status post mitral valve repair. Continue aspirin, Lipitor 40 mg daily, Lopressor 50 mg twice daily. Continue current pain management. Continue to increase activity. Incentive spirometry reduce incidence of atelectasis and hospital-acquired pneumonia 2. History of paroxysmal atrial fibrillation, currently in a sinus rhythm. Eliquis has been resumed. Continue Lopressor and amiodarone 200 mg twice daily. 3. Episode of SVT converted with adenosine, expected. 4. Hypertension. Continue Lopressor. 5. Hyperlipidemia. Continue atorvastatin. 6. History of breast cancer status post lumpectomy followed by simple ma stectomy, no chemotherapy or radiation treatment. Patient is currently on Arimidex. 7. DVT prophylaxis. Heparin subcu. 8. GI prophylaxis. Protonix. 9. Hyperglycemia without diabetes. Continue NovoLog scale before meals and at bedtime. 10. Diarrhea. C. difficile toxin negative. 11. Chronic back pain and spasms. Flexeril 10 mg 3 times daily. 12. Insomnia. Melatonin added. Discharge plan: home with VNA. Impression and plan of care have been directed as dictated by the signing physician. Melissa Wu nurse practitioner acting as scribe for signing grace yung.
--- NOTE | 2019-08-21 16:57 | P.PN ---
Subjective Progress Note Date: 08/21/19 Principal diagnosis: Severe mitral regurgitation and stenosis, status post mitral valve repair, and exclusion of left atrial appendage 64-year-old white female patient with past medical history of arthritis, known history of mitral valve prolapse, paroxysmal atrial fibrillation on Eliquis, past history of breast cancer status post left mastectomy, who was referred for surgical intervention, preop PFT showed FEV1 of 1.95 L or 92% of predicted, normal PFT, who had elective mitral valve repair with exclusion of left atrial appendage, modified maze procedure and intraoperative transesophageal echocardiogram on 08/17/2019. Patient is seen in the postoperative period in the intensive care unit, she sedated, intubated current vent settings are SIAMV mode of ventilation with a rate of 12, tidal volume is 400, FiO2 100% and PEEP of 5. Current drips include lactated Ringer's at rate of 50, Diprivan at 20 mics per kilo per minute, and insulin drip is on standby. Hemodynamically patient is stable, in sinus mechanism, epicardial wires connected to the pacemaker with backup rate of AAI 50, PA pressures are 35/21, CVP is 12, cardiac output is 5.5, cardiac index is 3.0. Postoperative blood work shows white blood cell count of 13.3, hemoglobin is 9.4, INR is 1.3, blood gas showed pO2 of 348, pCO2 of 39, pH of 7.40. Electrolytes and renal profile are all within normal li mits. 2 mediastinal and left pleural chest tube with small amount of serosanguineous output, no air leak. On 08/20/2019 patient seen in follow-up in the intensive care unit. This is postoperative day 3, status post mitral valve repair, with triangular resection of P2, closure of P2, P3 Luiz, construction all 4 radial cord to a 2, complete ring annuloplasty and modified pulmonary vein isolation and exclusion of the left atrial appendage with the Atriclip. Patient is complaining of nausea and diarrhea today, but no shortness of breath, her pain is under good control, hemodynamically patient is stable, and sinus mechanism with a controlled rate, mediastinal chest tube has been discontinued, right pleural chest tube remains in place and there has been 540 ML of service and was output in last 24 hours from the right pleural chest tube. AV wires are in place, have been grounded, their anticipated to be discontinued today. Lung sounds are diminished, patient denies any respiratory difficulty, she is working on incentive spirometer, today chest x-ray has been reviewed showing chronic pleural parenchymal changes on the basis of mild CHF with small pleural effusions. Noted to be generally swollen today with increased swelling in her arms and legs. She has received a dose of IV Lasix per CT surgery. On 08/21/2019 patient seen in follow-up selective care unit, she is awake and a lert, she sits up in the recliner, room air pulse ox of 98%, hemodynamically stable, no specific complaints, slightly fatigued, she has been ambulating in the hallway, tolerating activity well, lung sounds reveal diminished breath sounds at the bases, no significant rhonchi or wheezing, patient has mild edema involving upper and lower extremities, she has been afebrile, patient received a dose of IV Lasix, there is just x-ray showed bilateral infiltrates with small pleural effusions. His working on incentive spirometer, and is diuresing. Doing well, she is on oral anticoagulation for history of paroxysmal atrial fibrillation, currently in sinus rhythm Objective - Vital Signs Vital signs: Vital Signs Temp 98.4 F 08/21/19 15:40 Pulse 78 08/21/19 16:49 Resp 16 08/21/19 15:40 BP 142/77 08/21/19 15:40 Pulse Ox 98 08/21/19 15:40 Intake & Output 08/20/19 08/21/19 08/21/19 18:59 06:59 18:59 Intake Total 960 100 Output Total 900 1100 400 Balance 60 -1100 -300 Weight 92.3 kg Intake: Oral 960 100 Output: Urine 200 850 400 Stool 700 250 Other: Voiding Method Bedside Commode Bedside Commode Bedside Commode # Voids 0 1 # Bowel Movements 1 ABP, PAP, CO, CI - Last Documented Arterial Blood Pressure 102/48 Pulmonary Artery Pressure 42/14 Cardiac Output 4.5 Cardiac Index 2.4 - Exam GENERAL EXAM: Awake and alert, 64-year-old white female patient, complaining of nausea and diarrhea, but no acute distress HEAD: Normocephalic/atraumatic. EYES: Normal reaction of pupils, equal size. Conjunctiva pink, sclera white. NOSE: Clear with pink turbinates. THROAT: No erythema or exudates. NECK: No masses, no JVD, no thyroid enlargement, no adenopathy. CHEST: No chest wall deformity. Symmetrical expansion. Midsternal incision is clean dry and intact, interval removal of the 2 mediastinal and left pleural chest tube LUNGS: Equal air entry with no crackles, wheeze, rhonchi or dullness. CVS: Regular rate and rhythm, normal S1 and S2, no gallops, no murmurs, no rubs ABDOMEN: Soft, nontender. No hepatosplenomegaly, normal bowel sounds, no guarding or rigidity. EXTREMITIES: No clubbing, no edema, no cyanosis, 2+ pulses and upper and lower extremities. MUSCULOSKELETAL: Muscle strength and tone normal. SPINE: No scoliosis or deformity SKIN: No rashes CENTRAL NERVOUS SYSTEM: Alert and oriented 3, No focal deficits, tone is normal in all 4 extremities. PSYCHIATRIC: Alert and oriented 3. Appropriate affect. Intact judgment and insight. - Labs CBC & Chem 7: 08/21/19 05:25 08/21/19 05:25 Labs: Abnormal Lab Results - Last 24 Hours (Table) 08/20/19 08/20/19 08/20/19 Range/Units 16:25 17:14 20:01 RBC (3.80-5.40) m/uL Hgb (11.4-16.0) gm/dL Hct (34.0-46.0) % Sodium 129 L (137-145) mmol/L Chloride 93 L (98-107) mmol/L BUN 25 H (7-17) mg/dL Glucose 103 H (74-99) mg/dL POC Glucose (mg/dL) 111 H 106 H (75-99) mg/dL Calcium (8.4-10.2) mg/dL Magnesium (1.6-2.3) mg/dL 08/21/19 08/21/19 08/21/19 Range/Units 05:25 05:25 06:27 RBC 2.41 L (3.80-5.40) m/uL Hgb 7.9 L (11.4-16.0) gm/dL Hct 23.5 L (34.0-46.0) % Sodium 129 L (137-145) mmol/L Chloride 95 L (98-107) mmol/L BUN 23 H (7-17) mg/dL Glucose (74-99) mg/dL POC Glucose (mg/dL) 118 H (75-99) mg/dL Calcium 8.3 L (8.4-10.2) mg/dL Magnesium 2.4 H (1.6-2.3) mg/dL Assessment and Plan Plan: Assessment: #1. Mitral valve prolapse, with severe mitral valve regurgitation with flail of P2, status post sternotomy, mitral valve repair, left atrial appendage exclusion, modified maze procedure, and intraoperative transesophageal echocardiogram, postoperative day 4 #2. Routine ventilator management postop sternotomy, extubated at 5 hours and 20 minutes of the OR exit time on 08/17/2019 #3. Paroxysmal atrial fibrillation, was on Eliquis, currently on hold, currently in sinus mechanism #4. Hyperlipidemia #5. Lifetime nonsmoker, preop PFT showed normal spirometry #6. Postop blood loss anemia, normal outcome of sternotomy and mitral valve repair surgery #7. Hyponatremia, likely hypervolemic, patientn received a dose of IV Lasix #8. Diarrhea, C. diff ruled out Plan: Patient is doing well, working on incentive spirometer, received a dose of IV Lasix chest x-ray findings are consistent with mild CHF, fluid overload, she is on room air, in sinus rhythm, Eliquis has been resumed for history of paroxysmal atrial fibrillation, will chest tubes wires Soni catheter have been discontinued, patient has been ambulating, doing well. She is anticipated to be discharged home tomorrow I performed a history & physical examination of the patient and discussed their management with my nurse practitioner, Jessica Araya. I reviewed the nurse practitioner's note and agree with the documented findings and plan of care. Lung sounds are positive for diminished breath sounds at the bases. The findings and the impression was discussed with the patient. I attest to the documentation by the nurse practitioner. Time with Patient: Less than 30
[2019-08-21 17:01] LABS: Glucose,Whole Blood 93 mg/dL (75-99)
[2019-08-21 20:33] LABS: Glucose,Whole Blood 126 mg/dL (75-99)
[2019-08-21] MEDS: MELATONIN 3 MG TABLET PO SCH (21:30)
[2019-08-22] MEDS: CLEVIDIPINE BUTYRATE 25 MG in EMPTY BAG 1 BAG IV SCH (01:07)
[2019-08-22 06:00] LABS: Glucose,Whole Blood 98 mg/dL (75-99)
[2019-08-22 06:29] LABS: HCT 22.8 % (34.0-46.0); HGB 7.6 gm/dL (11.4-16.0); MCH 32.8 pg (25.0-35.0); MCHC 33.5 g/dL (31.0-37.0); MCV 97.9 fL (80.0-100.0); Mean Platelet Volume 7.4; Platelet Count 195 k/uL (150-450); RBC 2.33 m/uL (3.80-5.40); RDW 14.2 % (11.5-15.5); WBC 8.9 k/uL (3.8-10.6)
[2019-08-22] MEDS: KETOROLAC 30 MG/ML 1 ML VIAL IVP SCH ×3 (06:31→17:41)
[2019-08-22] MEDS: PANTOPRAZOLE 40 MG TABLET PO SCH (06:33)
[2019-08-22] MEDS: INSULIN ASPART (NovoLOG) 100 UNIT/ML VIAL SQ SCH ×4 (06:33→22:08)
[2019-08-22] MEDS: traMADol 50 MG TAB PO PRN ×2 (06:39→17:43)
[2019-08-22 06:43] LABS: Calcium 8.4 mg/dL (8.4-10.2); Magnesium 2.3 mg/dL (1.6-2.3); Potassium 3.6 mmol/L (3.5-5.1)
[2019-08-22] MEDS ORDERED: POTASSIUM CHLORIDE ER 20 MEQ TAB.ER PO STA ×2 (06:44→11:45)
--- NOTE | 2019-08-22 07:42 | XR ---
EXAMINATION TYPE: XR chest 2V DATE OF EXAM: 08/22/2019 COMPARISON: Chest x-ray from yesterday and older studies. HISTORY: Postoperative cardiac surgery. TECHNIQUE: Frontal and lateral views of the chest are obtained. FINDINGS: The cardiac silhouette size is stable and mildly enlarged. Overlying sternal wires and med iastinal clips with cardiac valvular ring and superior left closure device redemonstrated. Chronic pa renchymal changes with diminished inspiration along with mild interstitial edema and small bilateral pleural effusions on current study. Overlying EKG leads redemonstrated. Osseous structures are intact . IMPRESSION: Diminished inspiration with chronic parenchymal change and mild cardiomegaly with persis tent mild interstitial edema along with small bilateral pleural effusions and associated bibasilar at electasis and/or infiltrates. Finding suggests CHF exacerbation on background chronic emphysematous c hange.
[2019-08-22] MEDS: CYCLOBENZAPRINE 10 MG TAB PO SCH ×3 (07:52→20:20)
[2019-08-22] MEDS: ATORVASTATIN 40 MG TAB PO SCH (07:54)
[2019-08-22] MEDS: MULTIVITAMINS, THERA 1 EACH TAB PO SCH (07:54)
[2019-08-22] MEDS: CHOLECALCIFEROL 1,000 UNIT TAB PO SCH (07:54)
[2019-08-22] MEDS: APIXABAN 5 MG TAB PO SCH ×2 (07:54→20:20)
[2019-08-22] MEDS: METOPROLOL TARTRATE 50 MG TAB PO SCH ×2 (07:54→20:20)
[2019-08-22] MEDS: ASPIRIN 81 MG PO SCH (07:54)
[2019-08-22] MEDS: AMIODARONE 200 MG TAB PO SCH ×2 (07:55→20:20)
[2019-08-22] MEDS: ACETAMINOPHEN TAB 500 MG TAB PO PRN ×2 (07:59→20:20)
[2019-08-22] MEDS: IPRATROPIUM-ALBUTEROL 3 ML NEB INHALATION SCH ×4 (08:01→19:40)
[2019-08-22] MEDS ORDERED: SODIUM FERRIC GLUCONAT-SUCROSE 125 MG in SODIUM CHLORIDE 0.9% 100 ML IVPB ONE (11:00)
[2019-08-22] MEDS ORDERED: FUROSEMIDE 10 MG/ML 4 ML VIAL IV STA (11:44)
[2019-08-22 11:51] LABS: Glucose,Whole Blood 81 mg/dL (75-99)
--- NOTE | 2019-08-22 12:00 | P.PN ---
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 Previous medical history of paroxysmal atrial fibrillation on Eliquis for anticoagulation at home, hypertension, hyperlipidemia, arthritis, breast cancer within the last 5 years status post left mastectomy without radiation currently on Arimadex. POD #5 complex mitral valve repair with triangular resection of P2, closure of P2, P3 cleft, construction all 4 chitra cords to A2, complete ring annuloplasty using a 34 mm physio-II ring. Modified pulmonary vein isolation with a box lesion using radiofrequency bipolar clamp from At[employer]. Exclusion of the left atrial appendage using a 35 mm Atriclip. Intraoperative transesophageal echocardiogram and epi-aortic scanning. Postoperative acute blood loss anemia, expected outcome of surgery given hemodilution and cardiopulmonary bypass pump. Postoperative atrial tachycardia, expected. Postoperative diarrhea, unexpected but potential outcome secondary to medications. The patient is currently sitting up to the bedside chair on the cardiac stepdown unit. She is in no acute distress. Remote telemetry showing normal sinus rhythm heart rate 94. She is complaining of lower back pain which she reports is chronic and denies any complaints of shortness of breath. The patient's nurse Elizabeth called this morning reporting the patient was having some episodes of lightheadedness with ambulation and her current blood pressure with ambulation was 116/62 mmHg and heart rate 101 BPM. She denies any further complaints of diarrhea. Oxygen saturations are 95% on room air. She is achieving 1000 mL on her incentive spirometry with encouragement. She is afebrile the last 24 hours. Objective - Vital Signs Vital signs: Vital Signs Temp 97.8 F 08/22/19 07:40 Pulse 82 08/22/19 11:42 Resp 18 08/22/19 07:40 BP 114/62 08/22/19 07:40 Pulse Ox 95 08/22/19 08:05 Intake & Output 08/21/19 08/22/19 08/22/19 18:59 06:59 18:59 Intake Total 300 300 Output Total 400 Balance -100 300 Weight 91.8 kg Intake: Oral 300 300 Output: Urine 400 Other: Voiding Method Bedside Commode Bedside Commode ABP, PAP, CO, CI - Last Documented Arterial Blood Pressure 102/48 Pulmonary Artery Pressure 42/14 Cardiac Output 4.5 Cardiac Index 2.4 - Constitutional General appearance: Present: cooperative, no acute distress, obese - Respiratory Details: lung sounds diminished with few scattered crackles to bilateral bases. Respirations are symmetrical and nonlabored. Oxygen saturation is 95% on room air. Achieving 1000 ml with encouragement on her incentive spirometry. - Cardiovascular Details: Regular rhythm and rate. S1 and S2 present, negative for S3, gallop or murmur. Sternum is stable. Remote telemetry showing normal sinus rhythm heart rate 94. +1 generalized edema. Heart hugger is in place and she is demonstrating norm ropriate use. Knee-high GABE hose and sequential compression devices in place to her bilateral lower extremities. - Gastrointestinal Gastrointestinal Comment(s): Abdomen is soft, nontender and nondistended. Active bowel sounds present all 4 abdominal quadrants. Tolerating oral intake. No guarding or rigidity. Bowel movement this a.m. - Genitourinary Genitourinary Comment(s): Voiding clear miranda urine. - Integumentary Integumentary Comment(s): Skin is warm and dry. No clubbing or cyanosis is present. Midline sternal incision is clean, dry and intact. No drainage or redness is present. - Neurologic Neurologic: Present: CNII-XII intact - Musculoskeletal Musculoskeletal: Present: gait normal, generalized weakness, strength equal bilaterally - Psychiatric Psychiatric: Present: A&O x's 3, appropriate affect, intact judgment & insight - Allied health notes Allied health notes reviewed: nursing - Labs CBC & Chem 7: 08/22/19 06:06 08/22/19 06:06 Labs: Abnormal Lab Results - Last 24 Hours (Table) 08/21/19 08/22/19 08/22/19 Range/Units 20:32 06:06 06:06 RBC 2.33 L (3.80-5.40) m/uL Hgb 7.6 L (11.4-16.0) gm/dL Hct 22.8 L (34.0-46.0) % Sodium 132 L (137-145) mmol/L Chloride 97 L (98-107) mmol/L BUN 22 H (7-17) mg/dL POC Glucose (mg/dL) 126 H (75-99) mg/dL - Imaging and Cardiology Chest x-ray: report reviewed, image reviewed Assessment and Plan Assessment: 1. 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 History of paroxysmal atrial fibrillation on Eliquis for anticoagulation, status post modified pulmonary vein isolation and exclusion of the left atrial appendage 3. Hypertension 4. Hyperlipidemia 5. Arthritis 6. Breast cancer within the last 5 years, status post left mastectomy without radiation currently on Arimidex 7. Postoperative acute blood loss anemia 8. Postoperative atrial tachycardia Plan: 1. Continue low-dose aspirin, statin, beta moreno. Will increase beta moreno as tolerated. 2. Continue amiodarone for atrial fibrillation prophylaxis. Continue Eliquis 5 mg by mouth twice a day. 3. Encourage incentive spirometry 10 times every hour while awake. 4. Increase activity, ambulate as tolerated. PT/OT/cardiac rehab following. 5. Bronchodilators per pulmonology management. 6. Pain control with current medication regimen. 7. Will monitor daily labs and x-rays. Electrolyte replacement per protocol. No transfusion at this time. We will give Lasix 40 mg IV push 1 today and potassium chloride ER 20 mEq by mouth 1 with a Lasix. 8. Postoperative insulin management per primary care service, patient is not diabetic 9. Continue Flexeril for back spasms and Melatonin for insomnia managed by primary care service. 10. Discharge planning in progress. Anticipate discharge to home with home care within the next 24 hours. 12. More recommendations to follow based on patient's clinical course. Time with Patient: Greater than 30
--- NOTE | 2019-08-22 12:54 | P.PN ---
Subjective This is a pleasant 64-year-old female status post mitral valve repair. She is seen and examined sitting up in the chair in no acute distress. She is complaining of spasm in the left mid back region. She states she has this chronically typically resolves with Flexeril, tramadol and a warm bath. She did get up and ambulate today with physical therapy. She denies chest pain, shortness of breath, dizziness or palpitations. Telemetry tracings continued to show sinus mechanism with no evidence of arrhythmia. Laboratory data reviewed, WBC 8.9, hemoglobin 7.6, platelets 195, sodium 132, potassium 3.6, creatinine 0.86 and magnesium 2.3. Blood pressure 109/64 heart rate 78 afebrile maintaining oxygen saturation on room air. Currently maintained on amiodarone 200 mg twice a day, Eliquis 5 mg twice a day, aspirin 81 mg daily, atorvastatin 40 mg daily and metoprolol 50 mg twice a day. GENERAL: Well-appearing, well-nourished and in no acute distress. NECK: Supple without JVD or thyromegaly. LUNGS: Breath sounds clear to auscultation bilaterally. Respiration equal and unlabored. No wheezes, rales or rhonchi. HEART: Regular rate and rhythm without murmurs, rubs or gallops. S1 and S2 heard. EXTREMITIES: Normal range of motion, no edema. No clubbing or cyanosis. Peripheral pulses intact. ASSESSMENT Status post mitral valve repair Episode of paroxysmal supraventricular tachycardia, maintaining sinus mechanism Paroxysmal atrial fibrillation Hypertension PLAN Continue amiodarone 200 mg twice a day until August 26. At that time can be decreased to daily dosing. Follow-up with Dr. Montero upon discharge. Nurse Practitioner note has been reviewed, I agree with a documented findings and plan of care. Patient was seen and examined. Objective - Vital Signs Vital signs: Vital Signs Temp 98.2 F 08/22/19 03:58 Pulse 86 08/22/19 08:17 Resp 14 08/22/19 03:58 BP 109/64 08/22/19 03:58 Pulse Ox 95 08/22/19 08:05 Intake & Output 08/21/19 08/22/19 08/22/19 18:59 06:59 18:59 Intake Total 300 300 Output Total 400 Balance -100 300 Weight 91.8 kg Intake: Oral 300 300 Output: Urine 400 Other: Voiding Method Bedside Commode Bedside Commode ABP, PAP, CO, CI - Last Documented Arterial Blood Pressure 102/48 Pulmonary Artery Pressure 42/14 Cardiac Output 4.5 Cardiac Index 2.4 - Labs CBC & Chem 7: 08/22/19 06:06 08/22/19 06:06 Labs: Abnormal Lab Results - Last 24 Hours (Table) 08/21/19 08/22/19 08/22/19 Range/Units 20:32 06:06 06:06 RBC 2.33 L (3.80-5.40) m/uL Hgb 7.6 L (11.4-16.0) gm/dL Hct 22.8 L (34.0-46.0) % Sodium 132 L (137-145) mmol/L Chloride 97 L (98-107) mmol/L BUN 22 H (7-17) mg/dL POC Glucose (mg/dL) 126 H (75-99) mg/dL
[2019-08-22] MEDS: MAGNESIUM OXIDE 400 MG TAB PO SCH (13:00)
[2019-08-22] MEDS: ASCORBIC ACID 500 MG TAB PO SCH ×2 (13:00→17:35)
[2019-08-22] MEDS: FERROUS SULFATE 325 MG TAB PO SCH ×2 (13:00→17:35)
--- NOTE | 2019-08-22 14:09 | P.PN ---
Subjective Progress Note Date: 08/22/19 This is a 64-year-old female patient of Dr. Fracisco Casarez with past medical history of paroxysmal atrial fibrillation, gastroesophageal reflux disease, hyper lipidemia, mitral valve prolapse, breast cancer diagnosed in 2016 initially had a lumpectomy followed by simple mastectomy without chemotherapy or radiation, degenerative disc disease of the cervical and lumbar spine. Patient has been brought in the hospital on the care of . surgery status post mitral valve repair with exclusion of left atrial appendage, modified maze procedure and intraoperative transesophageal echocardiogram on 08/17/2019. Patient is seen today in the intensive care unit. She was successfully extubated last evening. Patient is complaining of significant pain in her chest of #9 out of 10. Vital signs at been stable. She denies any flatus. She states she was up in the chair this morning for several hours. She has a mediastinal and right pleural chest tubes in place, swans Cortis and left radial artery line. Patient had episode of SVT this morning status post medicine when converted to normal sinus rhythm. 08/18: Patient has been afebrile, heart rate 74, blood pressure 103/54, pulse ox 94% on 5 L nasal cannula. Repeat blood work reveals W BC 15.8, hemoglobin 8.6, platelet count 112. Sodium 129, BUN 22 and creatinine 0.84. Blood sugars running between 119 and 142. AST 69. Chest x-ray reveals bilateral pleural potential changes stable. Basilar postoperative atelectasis favored over pn eumonia. The patient is seen today sitting in a recliner. Patient's pain is better controlled today. She is complaining of spasms in her back and Flexeril but will be increased to 3 times daily. Insulin drip will be discontinued and start NovoLog scale. Patient states that she is not eating very much and does not have much appetite. She states she is passing gas. Soni catheter and Cordis discontinued. Patient is scheduled to have mediastinal chest tubes removed. 08/19: Patient is afebrile, heart rate 78, blood pressure 111/76, pulse ox 92% on 6 L nasal cannula. Repeat blood work reveals WBC 14.3, hemoglobin 8, platelet count 130, sodium 127, potassium 4.0, chloride 93, CO2 24, BUN 25 and creatinine 0.9. Capillary blood glucose running between 97 and 126. Patient is currently on NovoLog scale only. Patient states that she is not sleeping very well. Melatonin will be added. She is complaining of some nausea and not able to eat. She denies any vomiting. She did have diarrhea starting last evening and C. difficile toxin was negative. She states she only ate half a banana this morning. She complains of lower extremity edema which is worsened today and also shortness of breath with ambulation. She was given Lasix 40 mg IV this morning with diuresing. Cardiology has transition patient to amiodarone oral. Patient is waiting for a bed on the cardiac stepdown unit. 08/20: Patient is seen today on the cardiac stepdown unit. Patient is complaining of charley horses in the back of her ribs. No significant pain to the chest area. She states her breathing is improved today. Chest is been discontinued. Cardiology has resumed eliquis, aspirin. Amiodarone currently on 200 mg twice daily. Repeat chest x-ray reveals bilateral infiltrate with small effusion correlate for mild heart failure. Otherwise consider underlying pneumonia. Patient has been afebrile, heart rate 78, blood pressure 99/64, pulse ox 92% on room air. manager of care is in normal sinus rhythm. WBC 9.7, hemoglobin 7.9, platelet count 161. Sodium 129, potassium 3.6, chloride 95, CO2 29, BUN 23 creatinine 0.8. Blood sugars running between 88 and 118. Magnesium 2.4. Patient has been working with PT and OT. Discharge plan is home with [facility]. 08/21: Patient is seen today on the cardiac stepdown unit. She is and recliner with her legs elevated. She appears to be comfortable. She continues to complain of spasms in the back. She is on Flexeril 3 times daily. A repeat blood work reveals WBC 8.9, hemoglobin 7.6, platelet count 195, sodium 132, potassium 3.6, creatinine 2.86 and magnesium 2.3. Capillary blood glucose running between 81 and 126. Blood pressure 109/64, heart rate 78, patient has been afebrile, pulse ox 95% on room air. Patient states that she is scheduled for discharge home today. Patient does not require insulin or diabetic medications at discharge. Objective - Vital Signs Vital signs: Vital Signs Temp 98.2 F 08/22/19 03:58 Pulse 86 08/22/19 08:17 Resp 14 08/22/19 03:58 BP 109/64 08/22/19 03:58 Pulse Ox 95 08/22/19 08:05 Intake & Output 08/21/19 08/22/19 08/22/19 18:59 06:59 18:59 Intake Total 300 300 Output Total 400 Balance -100 300 Weight 91.8 kg Intake: Oral 300 300 Output: Urine 400 Other: Voiding Method Bedside Commode Bedside Commode ABP, PAP, CO, CI - Last Documented Arterial Blood Pressure 102/48 Pulmonary Artery Pressure 42/14 Cardiac Output 4.5 Cardiac Index 2.4 - Exam Review of Systems Constitutional: Reports poor appetite, Denies anorexia, Denies chills, Denies fatigue, Denies fever, Denies lethargy, Denies malaise Ears, nose, mouth and throat: Denies dental pain, Denies dysphagia, Denies nasal congestion, Denies nasal discharge, Denies vertigo Cardiovascular: Denies chest pain, Denies edema, Denies lightheadedness, Denies shortness of breath, Denies syncope Respiratory: Denies cough, Denies cough with sputum, Denies dyspnea, Denies excessive sputum, Denies hemoptysis, Denies home oxygen, Denies respiratory infections, Denies wheezing Gastrointestinal: Reports loss of appetite, Denies abdominal pain, reports diarrhea, reports nausea, Denies vomiting Genitourinary: Denies dysuria, Denies hematuria Musculoskeletal: Denies frequent falls, Denies gait dysfunction, Denies myalgias Integumentary: Denies pruritus, Denies rash Neurological: Denies change in mentation, Denies change in speech, Denies numbness, Denies weakness Psychiatric: Denies anxiety, Denies depression, reports insomnia Endocrine: Denies fatigue, Denies weight change Physical examination Gen: This is a 64-year-old obese female. She is resting in chair and appears to be comfortable. HEENT: Head is atraumatic, normocephalic. Pupils equal, round. Sclerae is anicteric. NECK: Supple. No JVD. No lymphadenopathy. No thyromegaly. LUNGS: Diminished bilaterally. No wheezes or rhonchi. No intercostal retractions. HEART: Regular rate and rhythm. No murmur. ABDOMEN: Soft. Bowel sounds normal. No masses. No tenderness. EXTREMITIES: Trace bilateral pedal edema. No calf tenderness. Dorsalis pedis +2 bilaterally. NEUROLOGICAL: Patient is awake, alert and oriented x3. Cranial nerves 2 through 12 are grossly intact. - Labs CBC & Chem 7: 08/22/19 06:06 08/22/19 06:06 Labs: Abnormal Lab Results - Last 24 Hours (Table) 08/21/19 08/22/19 08/22/19 Range/Units 20:32 06:06 06:06 RBC 2.33 L (3.80-5.40) m/uL Hgb 7.6 L (11.4-16.0) gm/dL Hct 22.8 L (34.0-46.0) % Sodium 132 L (137-145) mmol/L Chloride 97 L (98-107) mmol/L BUN 22 H (7-17) mg/dL POC Glucose (mg/dL) 126 H (75-99) mg/dL Assessment and Plan Plan: 1. Severe mitral valve regurgitation status post mitral valve repair. Continue aspirin, Lipitor 40 mg daily, Lopressor 50 mg twice daily. Continue current pain management. Continue to increase activity. Incentive spirometry reduce incidence of atelectasis and hospital-acquired pneumonia 2. History of paroxysmal atrial fibrillation, currently in a sinus rhythm. Eliquis has been resumed. Continue Lopressor and amiodarone 200 mg twice daily. 3. Episode of SVT converted with adenosine, expected. 4. Hypertension. Continue Lopressor. 5. Hyperlipidemia. Continue atorvastatin. 6. History of breast cancer status post lumpectomy followed by simple mastectomy, no chemotherapy or radiation treatment. Patient is currently on Arimidex. 7. DVT prophylaxis. 8. GI prophylaxis. Protonix. 9. Hyperglycemia without diabetes. Continue NovoLog scale before meals and at bedtime. 10. Diarrhea. C. difficile toxin negative. 11. Chronic back pain and spasms. Flexeril 10 mg 3 times daily. 12. Insomnia. Melatonin added. Discharge plan: home today with [facility]. Impression and plan of care have been directed as dictated by the signing physician. Melissa Wu nurse practitioner acting as scribe for signing physician.
--- NOTE | 2019-08-22 14:11 | P.PN ---
Subjective Progress Note Date: 08/22/19 64-year-old white female patient with past medical history of arthritis, known history of mitral valve prolapse, paroxysmal atrial fibrillation on Eliquis, past history of breast cancer status post left mastectomy, who was referred for surgical intervention, preop PFT showed FEV1 of 1.95 L or 92% of predicted, normal PFT, who had elective mitral valve repair with exclusion of left atrial appendage, modified maze procedure and intraoperative transesophageal echocardiogram on 08/17/2019. Patient is seen in the postoperative period in the intensive care unit, she sedated, intubated current vent settings are SIAMV mode of ventilation with a rate of 12, tidal volume is 400, FiO2 100% and PEEP of 5. Current drips include lactated Ringer's at rate of 50, Diprivan at 20 mics per kilo per minute, and insulin drip is on standby. Hemodynamically patient is stable, in sinus mechanism, epicardial wires connected to the pacemaker with backup rate of AAI 50, PA pressures are 35/21, CVP is 12, cardiac output is 5.5, cardiac index is 3.0. Postoperative blood work shows white blood cell count of 13.3, hemoglobin is 9.4, INR is 1.3, blood gas showed pO2 of 348, pCO2 of 39, pH of 7.40. Electrolytes and renal profile are all within normal limits. 2 mediastinal and left pleural chest tube with small amount of serosanguineous output, no air leak. On 08/20/2019 patient seen in follow-up in the intensive care unit. This is postoperative day 3, status post mitral valve repair, with triangular resection of P2, closure of P2, P3 Luiz, construction all 4 radial cord to a 2, complete ring annuloplasty and modified pulmonary vein isolation and exclusion of the left atrial appendage with the Atriclip. Patient is complaining of nausea and diarrhea today, but no shortness of breath, her pain is under good control, hemodynamically patient is stable, and sinus mechanism with a controlled rate, mediastinal chest tube has been discontinued, right pleural chest tube remains in place and there has been 540 ML of service and was output in last 24 hours from the right pleural chest tube. AV wires are in place, have been grounded, their anticipated to be discontinued today. Lung sounds are diminished, patient denies any respiratory difficulty, she is working on incentive spirometer, today chest x-ray has been reviewed showing chronic pleural parenchymal changes on the basis of mild CHF with small pleural effusions. Noted to be generally swollen today with increased swelling in her arms and legs. She has received a dose of IV Lasix per CT surgery. On 08/21/2019 patient seen in follow-up selective care unit, she is awake and alert, she sits up in the recliner, room air pulse ox of 98%, hemodynamically stable, no specific complaints, slightly fatigued, she has been ambulating in the hallway, tolerating activity well, lung sounds reveal diminished breath sounds at the bases, no significant rhonchi or wheezing, patient has mild edema involving upper and lower extremities, she has been afebrile, patient received a dose of IV Lasix, there is just x-ray showed bilateral infiltrates with small pleural effusions. His working on incentive spirometer, and is diuresing. Doing well, she is on oral anticoagulation for history of paroxysmal atrial fibrillation, currently in sinus rhythm The patient is seen today 08/22/2019 in follow-up on the selective care unit. She is currently sitting up in a chair at the bedside. Awake and alert in no acute distress. She is having some ongoing issues with significant weakness or so well up ambulating with assistance. No significant orthostatic hypotension. Hemoglobin is 7.6. She is receiving iron replacement now. She denies any worse sohail shortness of breath, cough or congestion. She is maintaining O2 saturation in the 90s on room air. Chest x-ray reveals diminished inspiration with chronic prevention we'll change and mild cardiomegaly with persistent mild interstitial edema along with small bilateral pleural effusions and associated bibasilar atelectasis and/or infiltrates. Objective - Vital Signs Vital signs: Vital Signs Temp 97.8 F 08/22/19 07:40 Pulse 82 08/22/19 11:42 Resp 18 08/22/19 07:40 BP 114/62 08/22/19 07:40 Pulse Ox 95 08/22/19 08:05 Intake & Output 08/21/19 08/22/19 08/22/19 18:59 06:59 18:59 Intake Total 300 500 Output Total 400 250 Balance -100 250 Weight 91.8 kg Intake: Oral 300 500 Output: Urine 400 250 Other: Voiding Method Bedside Commode Bedside Commode # Voids 1 ABP, PAP, CO, CI - Last Documented Arterial Blood Pressure 102/48 Pulmonary Artery Pressure 42/14 Cardiac Output 4.5 Cardiac Index 2.4 - Exam GENERAL EXAM: Alert, active, pleasant 64-year-old female patient, on room air, comfortable in no apparent distress. HEAD: Normocephalic. EYES: Normal reaction of pupils, equal size. NOSE: Clear with pink turbinates. THROAT: No erythema or exudates. NECK: No masses, no JVD. CHEST: Sternal dressing dry and intact. Her hospital in place. LUNGS: Equal air entry with basilar crackles. CVS: S1 and S2 normal with no audible murmur, regular rhythm. ABDOMEN: No hepatosplenomegaly, normal bowel sounds, no guarding or rigidity. SPINE: No scoliosis or deformity SKIN: No rashes CENTRAL NERVOUS SYSTEM: No focal deficits, tone is normal in all 4 extremities. EXTREMITIES: There is 1-2+ peripheral edema. No clubbing, no cyanosis. Peripheral pulses are intact. - Labs CBC & Chem 7: 08/22/19 06:06 08/22/19 06:06 Labs: Abnormal Lab Results - Last 24 Hours (Table) 08/21/19 08/22/19 08/22/19 Range/Units 20:32 06:06 06:06 RBC 2.33 L (3.80-5.40) m/uL Hgb 7.6 L (11.4-16.0) gm/dL Hct 22.8 L (34.0-46.0) % Sodium 132 L (137-145) mmol/L Chloride 97 L (98-107) mmol/L BUN 22 H (7-17) mg/dL POC Glucose (mg/dL) 126 H (75-99) mg/dL Assessment and Plan Assessment: #1. Mitral valve prolapse, with severe mitral valve regurgitation with flail of P2, status post sternotomy, mitral valve repair, left atrial appendage exclusio n, modified maze procedure, and intraoperative transesophageal echocardiogram, postoperative day 5 #2. Routine ventilator management postop sternotomy, extubated at 5 hours and 20 minutes of the OR exit time on 08/17/2019 #3. Paroxysmal atrial fibrillation, was on Eliquis, currently on hold, cur rently in sinus mechanism #4. Hyperlipidemia #5. Lifetime nonsmoker, preop PFT showed normal spirometry #6. Postop blood loss anemia, normal outcome of sternotomy and mitral valve repair surgery, with generalized weakness. Hemoglobin 7.6. Receiving iron replacement. #7. Hyponatremia, likely hypervolemic, patientn received a dose of IV Lasix #8. Diarrhea, C. diff ruled out Plan: The patient was seen and evaluated by Dr. Guaman. She is having some ongoing issues with weakness while up ambulating. Hemoglobin 7.6. She is receiving some iron replacement currently. No significant orthostatic hypotension. Stable from the pulmonary standpoint. Chest x-ray reviewed. We will continue to follow and make further recommendations based on her clinical status. I, the cosigning physician, performed a history & physical examination of the patient. Lungs sounds with bibasilar crackles. Maintaining good O2 saturations in the 90s on room air. I discussed the assessment and plan of care with my nurse practitioner, Naz Coles. I attest to the above note as dictated by her.
[2019-08-22 16:56] LABS: Glucose,Whole Blood 94 mg/dL (75-99)
[2019-08-22] MEDS: MELATONIN 3 MG TABLET PO SCH (20:20)
[2019-08-22 20:28] LABS: Glucose,Whole Blood 130 mg/dL (75-99)
[2019-08-23 06:03] LABS: Glucose,Whole Blood 110 mg/dL (75-99)
[2019-08-23] MEDS: INSULIN ASPART (NovoLOG) 100 UNIT/ML VIAL SQ SCH ×4 (06:08→21:02)
[2019-08-23 06:11] LABS: HCT 22.9 % (34.0-46.0); HGB 7.6 gm/dL (11.4-16.0); MCH 32.6 pg (25.0-35.0); MCHC 33.1 g/dL (31.0-37.0); MCV 98.3 fL (80.0-100.0); Mean Platelet Volume 7.2; Platelet Count 217 k/uL (150-450); RBC 2.33 m/uL (3.80-5.40); RDW 14.2 % (11.5-15.5); WBC 9.9 k/uL (3.8-10.6)
[2019-08-23] MEDS: PANTOPRAZOLE 40 MG TABLET PO SCH (06:23)
[2019-08-23] MEDS: FERROUS SULFATE 325 MG TAB PO SCH ×2 (06:23→17:45)
[2019-08-23] MEDS: ASCORBIC ACID 500 MG TAB PO SCH (06:23)
[2019-08-23] MEDS: ACETAMINOPHEN TAB 500 MG TAB PO PRN (06:28)
[2019-08-23] MEDS: traMADol 50 MG TAB PO PRN ×2 (06:28→20:17)
[2019-08-23 06:29] LABS: Calcium 8.4 mg/dL (8.4-10.2); Potassium 4.1 mmol/L (3.5-5.1)
[2019-08-23] MEDS: CYCLOBENZAPRINE 10 MG TAB PO SCH (06:33)
[2019-08-23] MEDS: IPRATROPIUM-ALBUTEROL 3 ML NEB INHALATION SCH ×4 (07:39→19:29)
--- NOTE | 2019-08-23 08:47 | XR ---
EXAMINATION TYPE: XR chest 2V DATE OF EXAM: 08/23/2019 COMPARISON: 08/22/2019 HISTORY: 64-year-old female postoperative mitral valve repair TECHNIQUE: PA and lateral views FINDINGS: Median sternotomy wires are present with mitral annuloplasty ring. Heart normal size. Interstitial op acities persist with small right pleural effusion and patchy right greater than left basilar opacitie s, not significantly changed. IMPRESSION: Small effusions with patchy right greater than left basilar atelectasis/consolidation. Possible backg round of mild pulmonary vascular congestion. Not significantly changed.
[2019-08-23] MEDS: METOPROLOL TARTRATE 50 MG TAB PO SCH ×2 (09:14→20:17)
[2019-08-23] MEDS: ATORVASTATIN 40 MG TAB PO SCH (09:14)
[2019-08-23] MEDS: CHOLECALCIFEROL 1,000 UNIT TAB PO SCH (09:14)
[2019-08-23] MEDS: APIXABAN 5 MG TAB PO SCH ×2 (09:14→20:17)
[2019-08-23] MEDS: MULTIVITAMINS, THERA 1 EACH TAB PO SCH (09:14)
[2019-08-23] MEDS: ASPIRIN 81 MG PO SCH (09:15)
[2019-08-23] MEDS: AMIODARONE 200 MG TAB PO SCH ×2 (09:15→20:17)
[2019-08-23] MEDS: MAGNESIUM OXIDE 400 MG TAB PO SCH (09:15)
[2019-08-23] MEDS ORDERED: CYCLOBENZAPRINE 10 MG TAB PO PRN (09:44)
[2019-08-23] MEDS ORDERED: POTASSIUM CHLORIDE ER 10 MEQ TAB.ER.PRT PO STA (09:45)
[2019-08-23] MEDS ORDERED: FUROSEMIDE 10 MG/ML 2 ML VIAL IV ONE (09:46)
[2019-08-23 11:30] LABS: Glucose,Whole Blood 109 mg/dL (75-99)
--- NOTE | 2019-08-23 11:38 | P.PN ---
Subjective Progress Note Date: 08/23/19 This is a 64-year-old female patient of Dr. Fracisco Casarez with past medical history of paroxysmal atrial fibrillation, gastroesophageal reflux disease, hyper lipidemia, mitral valve prolapse, breast cancer diagnosed in 2016 initially had a lumpectomy followed by simple mastectomy without chemotherapy or radiation, degenerative disc disease of the cervical and lumbar spine. Patient has been brought in the hospital on the care of . surgery status post mitral valve repair with exclusion of left atrial appendage, modified maze procedure and intraoperative transesophageal echocardiogram on 08/17/2019. Patient is seen today in the intensive care unit. She was successfully extubated last evening. Patient is complaining of significant pain in her chest of #9 out of 10. Vital signs at been stable. She denies any flatus. She states she was up in the chair this morning for several hours. She has a mediastinal and right pleural chest tubes in place, swans Cortis and left radial artery line. Patient had episode of SVT this morning status post medicine when converted to normal sinus rhythm. 08/18: Patient has been afebrile, heart rate 74, blood pressure 103/54, pulse ox 94% on 5 L nasal cannula. Repeat blood work reveals W BC 15.8, hemoglobin 8.6, platelet count 112. Sodium 129, BUN 22 and creatinine 0.84. Blood sugars running between 119 and 142. AST 69. Chest x-ray reveals bilateral pleural potential changes stable. Basilar postoperative atelectasis favored over pn eumonia. The patient is seen today sitting in a recliner. Patient's pain is better controlled today. She is complaining of spasms in her back and Flexeril but will be increased to 3 times daily. Insulin drip will be discontinued and start NovoLog scale. Patient states that she is not eating very much and does not have much appetite. She states she is passing gas. Soni catheter and Cordis discontinued. Patient is scheduled to have mediastinal chest tubes removed. 08/19: Patient is afebrile, heart rate 78, blood pressure 111/76, pulse ox 92% on 6 L nasal cannula. Repeat blood work reveals WBC 14.3, hemoglobin 8, platelet count 130, sodium 127, potassium 4.0, chloride 93, CO2 24, BUN 25 and creatinine 0.9. Capillary blood glucose running between 97 and 126. Patient is currently on NovoLog scale only. Patient states that she is not sleeping very well. Melatonin will be added. She is complaining of some nausea and not able to eat. She denies any vomiting. She did have diarrhea starting last evening and C. difficile toxin was negative. She states she only ate half a banana this morning. She complains of lower extremity edema which is worsened today and also shortness of breath with ambulation. She was given Lasix 40 mg IV this morning with diuresing. Cardiology has transition patient to amiodarone oral. Patient is waiting for a bed on the cardiac stepdown unit. 08/20: Patient is seen today on the cardiac stepdown unit. Patient is complaining of charley horses in the back of her ribs. No significant pain to the chest area. She states her breathing is improved today. Chest is been discontinued. Cardiology has resumed eliquis, aspirin. Amiodarone currently on 200 mg twice daily. Repeat chest x-ray reveals bilateral infiltrate with small effusion correlate for mild heart failure. Otherwise consider underlying pneumonia. Patient has been afebrile, heart rate 78, blood pressure 99/64, pulse ox 92% on room air. telemetry monitor is in normal sinus rhythm. WBC 9.7, hemoglobin 7.9, platelet count 161. Sodium 129, potassium 3.6, chloride 95, CO2 29, BUN 23 creatinine 0.8. Blood sugars running between 88 and 118. Magnesium 2.4. Patient has been working with PT and OT. Discharge plan is home with [facility]. 08/21: Patient is seen today on the cardiac stepdown unit. She is and recliner with her legs elevated. She appears to be comfortable. She continues to complain of spasms in the back. She is on Flexeril 3 times daily. A repeat blood work reveals WBC 8.9, hemoglobin 7.6, platelet count 195, sodium 132, potassium 3.6, creatinine 2.86 and magnesium 2.3. Capillary blood glucose running between 81 and 126. Blood pressure 109/64, heart rate 78, patient has been afebrile, pulse ox 95% on room air. Patient states that she is scheduled for discharge home today. Patient does not require insulin or diabetic medications at discharge. 08/22: Chest x-ray reveals small effusions with patchy right greater than left basilar atelectasis consolidation. Possible background of mild pulmonary vascular congestion. Patient has been afebrile, heart rate 78, pulse ox 93% on room air, blood pressure 122/74. Vitamin B12 842, hemoglobin 7.6, sodium 133, BUN 20 creatinine 0.8. Patient has received 1 dose of Ferrlecit. Patient is on ferrous sulfate twice daily. Orthostatic vital signs and reported as normal. Flexeril was decreased to once daily due to patient having episodes of weakness. We will add lidocaine cream for back spasm/pain Objective - Vital Signs Vital signs: Vital Signs Temp 98.3 F 08/23/19 03:20 Pulse 88 08/23/19 07:52 Resp 18 08/23/19 03:20 BP 122/74 08/23/19 03:20 Pulse Ox 93 L 08/23/19 07:41 Intake & Output 08/22/19 08/23/19 08/23/19 17:59 06:59 18:59 Intake Total 120 Output Total Balance 120 Weight Intake: Oral 120 Output: Urine Other: Voiding Method # Voids ABP, PAP, CO, CI - Last Documented Arterial Blood Pressure 102/48 Pulmonary Artery Pressure 42/14 Cardiac Output 4.5 Cardiac Index 2.4 - Exam Review of Systems Constitutional: Reports poor appetite, Denies anorexia, Denies chills, Denies fatigue, Denies fever, Denies lethargy, Denies malaise Ears, nose, mouth and throat: Denies dental pain, Denies dysphagia, Denies nasal congestion, Denies nasal discharge, Denies vertigo Cardiovascular: Denies chest pain, Denies edema, Denies lightheadedness, Denies shortness of breath, Denies syncope, episodes of weakness Respiratory: Denies cough, Denies cough with sputum, Denies dyspnea, Denies excessive sputum, Denies hemoptysis, Denies home oxygen, Denies respiratory infections, Denies wheezing Gastrointestinal: Reports loss of appetite, Denies abdominal pain, reports diarrhea, reports nausea, Denies vomiting Genitourinary: Denies dysuria, Denies hematuria Musculoskeletal: Denies frequent falls, Denies gait dysfunction, Denies myalgias Integumentary: Denies pruritus, Denies rash Neurological: Denies change in mentation, Denies change in speech, Denies numbness, Denies weakness Psychiatric: Denies anxiety, Denies depression, reports insomnia Endocrine: Denies fatigue, Denies weight change Physical examination Gen: This is a 64-year-old obese female. She is resting in chair and appears to be comfortable. HEENT: Head is atraumatic, normocephalic. Pupils equal, round. Sclerae is anicteric. NECK: Supple. No JVD. No lymphadenopathy. No thyromegaly. LUNGS: Diminished bilaterally. No wheezes or rhonchi. No intercostal retractions. HEART: Regular rate and rhythm. No murmur. ABDOMEN: Soft. Bowel sounds normal. No masses. No tenderness. EXTREMITIES: Trace bilateral pedal edema. No calf tenderness. Dorsalis pedis +2 bilaterally. NEUROLOGICAL: Patient is awake, alert and oriented x3. Cranial nerves 2 through 12 are grossly intact. - Labs CBC & Chem 7: 08/23/19 05:26 08/23/19 05:26 Labs: Abnormal Lab Results - Last 24 Hours (Table) 08/22/19 08/23/19 08/23/19 Range/Units 20:26 05:26 05:26 RBC 2.33 L (3.80-5.40) m/uL Hgb 7.6 L (11.4-16.0) gm/dL Hct 22.9 L (34.0-46.0) % Sodium 133 L (137-145) mmol/L BUN 20 H (7-17) mg/dL POC Glucose (mg/dL) 130 H (75-99) mg/dL 08/23/19 Range/Units 06:02 RBC (3.80-5.40) m/uL Hgb (11.4-16.0) gm/dL Hct (34.0-46.0) % Sodium (137-145) mmol/L BUN (7-17) mg/dL POC Glucose (mg/dL) 110 H (75-99) mg/dL Assessment and Plan Plan: 1. Severe mitral valve regurgitation status post mitral valve repair. Continue aspirin, Lipitor 40 mg daily, Lopressor 50 mg twice daily. Continue current pain management. Continue to increase activity. Incentive spirometry reduce incidence of atelectasis and hospital-acquired pneumonia 2. History of paroxysmal atrial fibrillation, currently in a sinus rhythm. Continue eliquis, Lopressor and amiodarone 200 mg twice daily. 3. Episode of SVT converted with adenosine, expected. 4. Hypertension. Continue Lopressor. 5. Hyperlipidemia. Continue atorvastatin. 6. History of breast cancer status post lumpectomy followed by simple mastectomy, no chemotherapy or radiation treatment. Patient is currently on Arimidex. 7. DVT prophylaxis. 8. GI prophylaxis. Protonix. 9. Hyperglycemia without diabetes. Continue NovoLog scale before meals and at bedtime. 10. Diarrhea. C. difficile toxin negative. 11. Chronic back pain and spasms. Flexeril 10 mg daily as needed, lidocaine cream added. 12. Insomnia. Melatonin. Discharge plan: home Saturday with [facility]NA. Impression and plan of care have been directed as dictated by the signing physician. Melissa Wu nurse practitioner acting as scribe for signing physician.
[2019-08-23] MEDS ORDERED: LIDOCAINE 2% GEL 30 ML TUBE TOPICAL PRN (12:00)
--- NOTE | 2019-08-23 12:12 | P.PN ---
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 Previous medical history of paroxysmal atrial fibrillation on Eliquis for anticoagulation at home, hypertension, hyperlipidemia, arthritis, breast cancer within the last 5 years status post left mastectomy without radiation currently on Arimadex. POD #6 complex mitral valve repair with triangular resection of P2, closure of P2, P3 cleft, construction all 4 chitra cords to A2, complete ring annuloplasty using a 34 mm physio-II ring. Modified pulmonary vein isolation with a box lesion using radiofrequency bipolar clamp from Atricure. Exclusion of the left atrial appendage using a 35 mm Atriclip. Intraoperative transesophageal echocardiogram and epi-aortic scanning. Postoperative acute blood loss anemia, expected outcome of surgery given hemodilution and cardiopulmonary bypass pump. Postoperative atrial tachycardia, expected. Postoperative diarrhea, unexpected but potential outcome secondary to medications. The patient is currently sitting up to the bedside chair on the cardiac stepdown unit. She is in no acute distress. She currently denies any complaints of pain or shortness of breath. The patient did report that she was having muscle spasms to her left back yesterday underneath her shoulder blade. Her Flexeril was increased by primary care service to 3 times a day and the patient reports that when she was ambulating in the hallway yesterday she was having episodes of lightheadedness. This morning she is falling asleep in mid conversation and is requesting that her Flexeril be decreased to 10 mg by mouth daily when necessary muscle spasms which she reports is her home dose. No further complaints of diarrhea. Oxygen saturation is 94% on room air and she is achieving 1250 mL on her incentive spirometry. Chest x-ray this morning shows some small bilateral pleural effusions with some left basilar atelectasis. Objective - Vital Signs Vital signs: Vital Signs Temp 98.3 F 08/23/19 03:20 Pulse 78 08/23/19 11:24 Resp 18 08/23/19 03:20 BP 122/74 08/23/19 03:20 Pulse Ox 93 L 08/23/19 07:41 Intake & Output 08/22/19 08/23/19 08/23/19 17:59 06:59 18:59 Intake Total 120 Output Total Balance 120 Weight Intake: Oral 120 Output: Urine Other: Voiding Method # Voids ABP, PAP, CO, CI - Last Documented Arterial Blood Pressure 102/48 Pulmonary Artery Pressure 42/14 Cardiac Output 4.5 Cardiac Index 2.4 - Constitutional Constitutional Comment(s): falling asleep mid conversation sitting up to bedside chair. General appearance: Present: cooperative, no acute distress, obese - Respiratory Details: Lung sounds essentially clear throughout, diminished bilateral bases. Respirations are symmetrical and nonlabored. Oxygen saturation is 94% on room air and she is achieving 1250 mL on her incentive spirometry. - Cardiovascular Details: Regular rhythm and rate. S1 and S2 present, negative for S3, gallop or murmur. Sternum is stable. Remote telemetry showing normal sinus rhythm heart rate 95. Heart hugger is in place and she is demonstrating appropriate use. Trace pedal edema bilaterally. Knee-high GABE hose and sequential compression devices in place to bilateral lower extremities. - Gastrointestinal Gastrointestinal Comment(s): Abdomen is soft, nontender and nondistended. Active bowel sounds present all 4 abdominal quadrants. Bowel movement this morning. Tolerating oral intake. - Genitourinary Genitourinary Comment(s): Voiding clear yellow urine. - Integumentary Integumentary Comment(s): Skin is warm and dry. No clubbing or cyanosis is present. Midline sternal incision is clean, dry and approximated. No drainage or redness present. - Neurologic Neurologic: Present: CNII-XII intact - Musculoskeletal Musculoskeletal: Present: gait normal, generalized weakness, strength equal bilaterally - Psychiatric Psychiatric: Present: A&O x's 3 - Allied health notes Allied health notes reviewed: nursing - Labs CBC & Chem 7: 08/23/19 05:26 08/23/19 05:26 Labs: Abnormal Lab Results - Last 24 Hours (Table) 08/22/19 08/23/19 08/23/19 Range/Units 20:26 05:26 05:26 RBC 2.33 L (3.80-5.40) m/uL Hgb 7.6 L (11.4-16.0) gm/dL Hct 22.9 L (34.0-46.0) % Sodium 133 L (137-145) mmol/L BUN 20 H (7-17) mg/dL POC Glucose (mg/dL) 130 H (75-99) mg/dL 08/23/19 08/23/19 Range/Units 06:02 11:28 RBC (3.80-5.40) m/uL Hgb (11.4-16.0) gm/dL Hct (34.0-46.0) % Sodium (137-145) mmol/L BUN (7-17) mg/dL POC Glucose (mg/dL) 110 H 109 H (75-99) mg/dL - Imaging and Cardiology Chest x-ray: report reviewed, image reviewed Assessment and Plan Assessment: 1. 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 History of paroxysmal atrial fibrillation on Eliquis for anticoagulation, status post modified pulmonary vein isolation and exclusion of the left atrial appendage 3. Hypertension 4. Hyperlipidemia 5. Arthritis 6. Breast cancer within the last 5 years, status post left mastectomy without radiation currently on Arimidex 7. Postoperative acute blood loss anemia 8. Postoperative atrial tachycardia Plan: 1. Continue low-dose aspirin, statin, beta moreno. Will increase beta moreno as tolerated. 2. Continue oral amiodarone amiodarone for atrial fibrillation prophylaxis. Continue Eliquis 5 mg by mouth twice a day. 3. Encourage incentive spirometry 10 times every hour while awake. 4. Increase activity, ambulate as tolerated. PT/OT/cardiac rehab following. 5. Bronchodilators per pulmonology management. 6. Pain control with current medication regimen. Flexeril decreased to 10 mg by mouth daily when necessary muscle spasms as the patient is having episodes of lightheadedness and falling asleep during mid conversation. 7. Will monitor daily labs and chest x-rays. Electrolyte replacement per protocol. No transfusion at this time. We will give Lasix 20 mg IV push 1 today. 8. Postoperative insulin management per primary care service, patient is not diabetic 9. Continue Melatonin for insomnia managed by primary care service. 10. Discharge planning in progress. Anticipate discharge to home with home ca re within the next 24 hours. 12. More recommendations to follow based on patient's clinical course. Time with Patient: Greater than 30
--- NOTE | 2019-08-23 12:34 | P.PN ---
Subjective This is a pleasant 64-year-old female status post mitral valve repair. She is seen and examined sitting up in the chair undergoing updraft treatment. She states she has been up and ambulating and feels mildly dizzy with palpitations with minimal activity. Telemetry tracings have been unremarkable. She continues to maintain sinus mechanism. Blood pressure 122/74 heart rate 82 afebrile maintaining oxygen saturation on room air. Laboratory data reviewed, WBC 9.9, hemoglobin 7.6, platelets 217, sodium 133, potassium 4.1, creatinine 0.8. She was given one dose of IV Lasix this morning per CT surgery. Chest x- ray this morning reveals small effusions with patchy right greater than left basilar atelectasis versus consolidation with mild underlying pulmonary vascular congestion, no significant change from previous. Currently maintained on amiodarone 200 mg twice a day, Eliquis 5 mg twice a day, aspirin 81 mg daily, atorvastatin 40 mg daily and Lopressor 50 mg twice a day. GENERAL: Well-appearing, well-nourished and in no acute distress. NECK: Supple without JVD or thyromegaly. LUNGS: Trace bibasilar rales. Respiration equal and unlabored. No wheezes or rhonchi. HEART: Regular rate and rhythm without murmurs, rubs or gallops. S1 and S2 heard. EXTREMITIES: Normal range of motion, trace bilateral lower extremity edema. No clubbing or cyanosis. Peripheral pulses intact. ASSESSMENT Status post mitral valve repair Episode of paroxysmal supraventricular tachycardia, maintaining sinus mechanism Paroxysmal atrial fibrillation Hypertension PLAN Continue current medical regimen. Increase activity and ambulation Continue to monitor on telemetry for an ongoing arrhythmia. Nurse Practitioner note has been reviewed, I agree with a documented findings and plan of care. Patient was seen and examined. Objective - Vital Signs Vital signs: Vital Signs Temp 98.3 F 08/23/19 03:20 Pulse 80 08/23/19 11:13 Resp 18 08/23/19 03:20 BP 122/74 08/23/19 03:20 Pulse Ox 93 L 08/23/19 07:41 Intake & Output 08/22/19 08/23/19 08/23/19 17:59 06:59 18:59 Intake Total 120 Output Total Balance 120 Weight Intake: Oral 120 Output: Urine Other: Voiding Method # Voids ABP, PAP, CO, CI - Last Documented Arterial Blood Pressure 102/48 Pulmonary Artery Pressure 42/14 Cardiac Output 4.5 Cardiac Index 2.4 - Labs CBC & Chem 7: 08/23/19 05:26 08/23/19 05:26 Labs: Abnormal Lab Results - Last 24 Hours (Table) 08/22/19 08/23/19 08/23/19 Range/Units 20:26 05:26 05:26 RBC 2.33 L (3.80-5.40) m/uL Hgb 7.6 L (11.4-16.0) gm/dL Hct 22.9 L (34.0-46.0) % Sodium 133 L (137-145) mmol/L BUN 20 H (7-17) mg/dL POC Glucose (mg/dL) 130 H (75-99) mg/dL 08/23/19 Range/Units 06:02 RBC (3.80-5.40) m/uL Hgb (11.4-16.0) gm/dL Hct (34.0-46.0) % Sodium (137-145) mmol/L BUN (7-17) mg/dL POC Glucose (mg/dL) 110 H (75-99) mg/dL
--- NOTE | 2019-08-23 14:48 | P.PN ---
Subjective Progress Note Date: 08/23/19 64-year-old white female patient with past medical history of arthritis, known history of mitral valve prolapse, paroxysmal atrial fibrillation on Eliquis, past history of breast cancer status post left mastectomy, who was referred for surgical intervention, preop PFT showed FEV1 of 1.95 L or 92% of predicted, normal PFT, who had elective mitral valve repair with exclusion of left atrial appendage, modified maze procedure and intraoperative transesophageal echocardiogram on 08/17/2019. Patient is seen in the postoperative period in the intensive care unit, she sedated, intubated current vent settings are SIAMV mode of ventilation with a rate of 12, tidal volume is 400, FiO2 100% and PEEP of 5. Current drips include lactated Ringer's at rate of 50, Diprivan at 20 mics per kilo per minute, and insulin drip is on standby. Hemodynamically patient is stable, in sinus mechanism, epicardial wires connected to the pacemaker with backup rate of AAI 50, PA pressures are 35/21, CVP is 12, cardiac output is 5.5, cardiac index is 3.0. Postoperative blood work shows white blood cell count of 13.3, hemoglobin is 9.4, INR is 1.3, blood gas showed pO2 of 348, pCO2 of 39, pH of 7.40. Electrolytes and renal profile are all within normal limits. 2 mediastinal and left pleural chest tube with small amount of serosanguineous output, no air leak. On 08/20/2019 patient seen in follow-up in the intensive care unit. This is postoperative day 3, status post mitral valve repair, with triangular resection of P2, closure of P2, P3 Luiz, construction all 4 radial cord to a 2, complete ring annuloplasty and modified pulmonary vein isolation and exclusion of the left atrial appendage with the Atriclip. Patient is complaining of nausea and diarrhea today, but no shortness of breath, her pain is under good control, hemodynamically patient is stable, and sinus mechanism with a controlled rate, mediastinal chest tube has been discontinued, right pleural chest tube remains in place and there has been 540 ML of service and was output in last 24 hours from the right pleural chest tube. AV wires are in place, have been grounded, their anticipated to be discontinued today. Lung sounds are diminished, patient denies any respiratory difficulty, she is working on incentive spirometer, today chest x-ray has been reviewed showing chronic pleural parenchymal changes on the basis of mild CHF with small pleural effusions. Noted to be generally swollen today with increased swelling in her arms and legs. She has received a dose of IV Lasix per CT surgery. On 08/21/2019 patient seen in follow-up selective care unit, she is awake and alert, she sits up in the recliner, room air pulse ox of 98%, hemodynamically stable, no specific complaints, slightly fatigued, she has been ambulating in the hallway, tolerating activity well, lung sounds reveal diminished breath sounds at the bases, no significant rhonchi or wheezing, patient has mild edema involving upper and lower extremities, she has been afebrile, patient received a dose of IV Lasix, there is just x-ray showed bilateral infiltrates with small pleural effusions. His working on incentive spirometer, and is diuresing. Doing well, she is on oral anticoagulation for history of paroxysmal atrial fibrillation, currently in sinus rhythm The patient is seen today 08/22/2019 in follow-up on the selective care unit. She is currently sitting up in a chair at the bedside. Awake and alert in no acute distress. She is having some ongoing issues with significant weakness or so well up ambulating with assistance. No significant orthostatic hypotension. Hemoglobin is 7.6. She is receiving iron replacement now. She denies any worse sohail shortness of breath, cough or congestion. She is maintaining O2 saturation in the 90s on room air. Chest x-ray reveals diminished inspiration with chronic prevention we'll change and mild cardiomegaly with persistent mild interstitial edema along with small bilateral pleural effusions and associated bibasilar atelectasis and/or infiltrates. The patient is seen today 08/23/2019 in follow-up on the selective care unit. She continues to progress well. She is awake alert no acute distress. She's been up ambulating in the hallway. Less dizziness today compared to yesterday. She is maintaining good O2 saturations in the 90s on room air.Chest x-ray reveals small effusions with patchy right greater than left basilar atelectasis. Mild pulmonary vascular congestion. White count 9.9. Hemoglobin 7.6. Sodium 133. Creatinine 0.80. Objective - Vital Signs Vital signs: Vital Signs Temp 97.3 F L 08/23/19 12:05 Pulse 86 08/23/19 12:05 Resp 18 08/23/19 12:05 BP 112/70 08/23/19 12:05 Pulse Ox 94 L 08/23/19 12:05 Intake & Output 08/22/19 08/23/19 08/23/19 17:59 06:59 18:59 Intake Total 720 Output Total Balance 720 Weight Intake: Oral 720 Output: Urine Other: Voiding Method # Voids ABP, PAP, CO, CI - Last Documented Arterial Blood Pressure 102/48 Pulmonary Artery Pressure 42/14 Cardiac Output 4.5 Cardiac Index 2.4 - Exam GENERAL EXAM: Alert, active, pleasant 64-year-old female patient, on room air, comfortable in no apparent distress. HEAD: Normocephalic. EYES: Normal reaction of pupils, equal size. NOSE: Clear with pink turbinates. THROAT: No erythema or exudates. NECK: No masses, no JVD. CHEST: Sternal dressing dry and intact. Her hospital in place. LUNGS: Equal air entry with basilar crackles. CVS: S1 and S2 normal with no audible murmur, regular rhythm. ABDOMEN: No hepatosplenomegaly, normal bowel sounds, no guarding or rigidity. SPINE: No scoliosis or deformity SKIN: No rashes CENTRAL NERVOUS SYSTEM: No focal deficits, tone is normal in all 4 extremities. EXTREMITIES: There is 1-2+ peripheral edema. No clubbing, no cyanosis. Peripheral pulses are intact. - Labs CBC & Chem 7: 08/23/19 05:26 08/23/19 05:26 Labs: Abnormal Lab Results - Last 24 Hours (Table) 08/22/19 08/23/19 08/23/19 Range/Units 20:26 05:26 05:26 RBC 2.33 L (3.80-5.40) m/uL Hgb 7.6 L (11.4-16.0) gm/dL Hct 22.9 L (34.0-46.0) % Sodium 133 L (137-145) mmol/L BUN 20 H (7-17) mg/dL POC Glucose (mg/dL) 130 H (75-99) mg/dL 08/23/19 08/23/19 Range/Units 06:02 11:28 RBC (3.80-5.40) m/uL Hgb (11.4-16.0) gm/dL Hct (34.0-46.0) % Sodium (137-145) mmol/L BUN (7-17) mg/dL POC Glucose (mg/dL) 110 H 109 H (75-99) mg/dL Assessment and Plan Assessment: #1. Mitral valve prolapse, with severe mitral valve regurgitation with flail of P2, status post sternotomy, mitral valve repair, left atrial appendage exclusion, modified maze procedure, and intraoperative transesophageal echocardiogram, postoperative day 6 #2. Routine ventilator management postop sternotomy, extubated at 5 hours and 20 minutes of the OR exit time on 08/17/2019 #3. Paroxysmal atrial fibrillation, was on Eliquis, currently on hold, currently in sinus mechanism #4. Hyperlipidemia #5. Lifetime nonsmoker, preop PFT showed normal spirometry #6. Postop blood loss anemia, normal outcome of sternotomy and mitral valve repair surgery, with generalized weakness. Hemoglobin 7.6. Receiving iron replacement. #7. Hyponatremia, likely hypervolemic, patientn received a dose of IV Lasix #8. Diarrhea, C. diff ruled out Plan: The patient was seen and evaluated by Dr. Guaman. Chest x-ray and labs reviewed. She is improved today compared to yesterday. Less dizziness while ambulating. Stable from the pulmonary standpoint. We will continue to follow and make further recommendations based on her clinical status. I, the cosigning physician, performed a history & physical examination of the patient. Lungs sounds with bibasilar crackles. Maintaining good O2 saturations in the 90s on room air. I discussed the assessment and plan of care with my nurse practitioner, Naz Coles. I attest to the above note as dictated by her.
[2019-08-23 16:36] LABS: Glucose,Whole Blood 114 mg/dL (75-99)
[2019-08-23] MEDS: MELATONIN 3 MG TABLET PO SCH (20:17)
[2019-08-23 20:23] LABS: Glucose,Whole Blood 119 mg/dL (75-99)
[2019-08-24 06:03] LABS: Glucose,Whole Blood 105 mg/dL (75-99)
[2019-08-24] MEDS: INSULIN ASPART (NovoLOG) 100 UNIT/ML VIAL SQ SCH (06:06)
[2019-08-24 06:28] LABS: HCT 24.3 % (34.0-46.0); HGB 7.9 gm/dL (11.4-16.0); MCH 31.7 pg (25.0-35.0); MCHC 32.3 g/dL (31.0-37.0); MCV 98.1 fL (80.0-100.0); Mean Platelet Volume 7.1; Platelet Count 260 k/uL (150-450); Poikilocytosis Slight; RBC 2.48 m/uL (3.80-5.40); RDW 14.6 % (11.5-15.5); WBC 11.6 k/uL (3.8-10.6)
[2019-08-24] MEDS: FERROUS SULFATE 325 MG TAB PO SCH (06:30)
[2019-08-24] MEDS: PANTOPRAZOLE 40 MG TABLET PO SCH (06:30)
[2019-08-24] MEDS: ASCORBIC ACID 500 MG TAB PO SCH (06:30)
[2019-08-24 06:40] LABS: African American GFR (CKD) >90 (>60 ml/min/1.73 sqM); Anion Gap 6 mmol/L; Blood Urea Nitrogen 13 mg/dL (7-17); Calcium 8.7 mg/dL (8.4-10.2); Carbon Dioxide 30 mmol/L (22-30); Chloride 96 mmol/L (98-107); Glucose 95 mg/dL (74-99); Non-African American GFR(CKD) >90 (>60 ml/min/1.73 sqM); Potassium 3.9 mmol/L (3.5-5.1); Sodium 132 mmol/L (137-145)
[2019-08-24] MEDS: CALCIUM CARBONATE 500 MG CHEWABLE PO PRN (07:21)
[2019-08-24] MEDS: IPRATROPIUM-ALBUTEROL 3 ML NEB INHALATION SCH ×2 (08:05→11:15)
[2019-08-24] MEDS ORDERED: FUROSEMIDE 10 MG/ML 2 ML VIAL IV ONE (09:03)
[2019-08-24] MEDS ORDERED: METOPROLOL TARTRATE 25 MG TAB PO SCH (09:15)
[2019-08-24 09:56] VITALS: BP 139/72; PULSE 105; RESP 20; TEMP 98.4
[2019-08-24] MEDS: ATORVASTATIN 40 MG TAB PO SCH (10:03)
[2019-08-24] MEDS: APIXABAN 5 MG TAB PO SCH (10:03)
[2019-08-24] MEDS: CHOLECALCIFEROL 1,000 UNIT TAB PO SCH (10:03)
[2019-08-24] MEDS: traMADol 50 MG TAB PO PRN (10:03)
[2019-08-24] MEDS: MAGNESIUM OXIDE 400 MG TAB PO SCH (10:03)
[2019-08-24] MEDS: AMIODARONE 200 MG TAB PO SCH (10:03)
[2019-08-24] MEDS: MULTIVITAMINS, THERA 1 EACH TAB PO SCH (10:03)
[2019-08-24] MEDS: ASPIRIN 81 MG PO SCH (10:03)
[2019-08-24] MEDS: ACETAMINOPHEN TAB 500 MG TAB PO PRN (10:04)
--- NOTE | 2019-08-24 10:25 | P.PN ---
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 Previous medical history of paroxysmal atrial fibrillation on Eliquis for anticoagulation, hypertension, hyperlipidemia, arthritis, breast cancer within the last 5 years status post left mastectomy without radiation currently on Arimadex. POD #7 complex mitral valve repair with triangular resection of P2, closure of P2, P3 cleft, construction all for radial cord to A2, complete ring annuloplasty using a 34 mm physio-2 ring. Modified pulmonary vein isolation with a box lesion using radiofrequency bipolar clamp from aftercare. Exclusion of the left atrial appendage using a 35 mm after clip. Intraoperative transesophageal echocardiogram and epi-aortic scanning. Postoperative acute blood loss anemia, expected outcome of surgery given hemodilution and cardiopulmonary bypass pump. Postoperative atrial tachycardia, expected Postoperative diarrhea, unexpected but potential outcome secondary to medications Patient's currently sitting up in a recliner in no acute distress on the cardiac stepdown unit. States post surgical type pain is controlled on current medication regimen, denies shortness of breath. Does complain of continued intermittent cramping in her back left scapular region which is not new, she states she battled this prior to surgery. She has ambulated in the hallway. She stated yesterday she was ready to go home, however she was a bit sleepy. Her Flexeril dose was decreased, and she states this morning that she is ready to go home today. No other new concerns. Objective - Vital Signs Vital signs: Vital Signs Temp 98.4 F 08/24/19 08:00 Pulse 105 H 08/24/19 08:00 Resp 20 08/24/19 08:00 BP 139/72 08/24/19 08:00 Pulse Ox 100 08/24/19 08:00 Intake & Output 08/23/19 08/24/19 08/24/19 18:59 06:59 18:59 Intake Total 720 300 360 Output Total 1900 900 Balance -1180 -600 360 Weight 90.2 kg Intake: Oral 720 300 360 Output: Urine 1900 900 Other: Voiding Method Bedside Commode # Voids 1 0 # Bowel Movements 1 0 ABP, PAP, CO, CI - Last Documented Arterial Blood Pressure 102/48 Pulmonary Artery Pressure 42/14 Cardiac Output 4.5 Cardiac Index 2.4 - Constitutional General appearance: Present: cooperative, no acute distress, obese - Respiratory Details: Lungs sounds diminished bilaterally. Respirations even, nonlabored. Currently on room air with oxygen saturation 100%. Able to achieve 1250 mL on her incentive spirometry. Strong cough. - Cardiovascular Details: S1, S2 present. Regular rate and rhythm, sinus rhythm on telemetry. Sternum stable. Palpable peripheral pulses bilaterally. Trace generalized edema present. No calf pain or tenderness noted. Heart hugger in place with patient demonstrating appropriate use. Antiembolism stockings, SCDs present. - Gastrointestinal Gastrointestinal Comment(s): Abdomen soft, nontender, nondistended. Active bowel sounds present 4 quadrants. Tolerating diet. Positive bowel movement. - Genitourinary Genitourinary Comment(s): Continues to void clear, yellow urine. - Integumentary Integumentary Comment(s): Skin is warm and dry with evidence of diffusion. Anterior chest incision well approximated and covered with dry intact dressing. - Neurologic Neurologic: Present: CNII-XII intact - Musculoskeletal Musculoskeletal: Present: gait normal, strength equal bilaterally - Psychiatric Psychiatric: Present: A&O x's 3, appropriate affect, intact judgment & insight - Allied health notes Allied health notes reviewed: nursing - Labs CBC & Chem 7: 08/24/19 05:27 08/24/19 05:27 Labs: Abnormal Lab Results - Last 24 Hours (Table) 08/23/19 08/23/19 08/23/19 Range/Units 11:28 16:35 20:22 WBC (3.8-10.6) k/uL RBC (3.80-5.40) m/uL Hgb (11.4-16.0) gm/dL Hct (34.0-46.0) % Sodium (137-145) mmol/L Chloride (98-107) mmol/L POC Glucose (mg/dL) 109 H 114 H 119 H (75-99) mg/dL 08/24/19 08/24/19 08/24/19 Range/Units 05:27 05:27 06:01 WBC 11.6 H (3.8-10.6) k/uL RBC 2.48 L (3.80-5.40) m/uL Hgb 7.9 L (11.4-16.0) gm/dL Hct 24.3 L (34.0-46.0) % Sodium 132 L (137-145) mmol/L Chloride 96 L (98-107) mmol/L POC Glucose (mg/dL) 105 H (75-99) mg/dL - Imaging and Cardiology Chest x-ray: report reviewed, image reviewed Assessment and Plan Assessment: 1. 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 History of paroxysmal atrial fibrillation on Eliquis for anticoagulation, status post modified pulmonary vein isolation and exclusion of the left atrial appendage 3. Hypertension 4. Hyperlipidemia 5. Arthritis 6. Breast cancer within the last 5 years, status post left mastectomy without radiation currently on Arimidex 7. Postoperative acute blood loss anemia 8. Postoperative atrial tachycardia, resolved 9. Postoperative diarrhea, resolved Plan: 1. Continue low-dose aspirin, statin, beta moreno therapy. Increased Lopressor to 75 mg twice daily. 2. Continue amiodarone. Continue Eliquis 3. Encourage incentive spirometry 10 times every hour while awake. 4. Increase activity, ambulate as tolerated. PT/OT/cardiac rehab following 5. Bronchodilators per pulmonology 6. Pain control with current medication regimen. 7. Will give Lasix IV push today, patient to be discharged home on 1 week's worth of oral Lasix 8. Discharge planning in progress. Anticipate discharge to home with home care today. Follow-up appointments made, verbal discharge instructions given to patient. Contact information for cardiothoracic surgery was given to patient. 9. More recommendations to follow based on patient's progress Time with Patient: Greater than 30 <Keisha Madrigal - Last Filed: 08/29/19 12:50> Objective - Vital Signs Vital signs: Vital Signs Temp 98.4 F 08/24/19 08:00 Pulse 105 H 08/24/19 08:00 Resp 20 08/24/19 08:00 BP 139/72 08/24/19 08:00 Pulse Ox 100 08/24/19 08:00 ABP, PAP, CO, CI - Last Documented Arterial Blood Pressure 102/48 Pulmonary Artery Pressure 42/14 Cardiac Output 4.5 Cardiac Index 2.4 - Labs CBC & Chem 7: 08/24/19 05:27 08/24/19 05:27
--- NOTE | 2019-08-24 10:56 | XR ---
EXAMINATION TYPE: XR chest 2V DATE OF EXAM: 08/24/2019 COMPARISON: Prior chest x-ray 08/23/2019 HISTORY: Postop mitral valve replacement TECHNIQUE: Frontal and lateral views of the chest are obtained. FINDINGS: There are overlying artifacts present. Patient is post median sternotomy, atrial appendage clipping, mitral valve replacement. Patchy basilar density persists, there is persistent blunting of the right costophrenic angle, heart size is within normal limits. No evident pneumothorax. There are overlying cardiac leads. IMPRESSION: Satisfactory postoperative chest x-ray. There is basilar atelectasis, difficult to exclu de effusion, correlate to exclude pneumonia.
--- NOTE | 2019-08-24 11:07 | P.PN ---
Subjective Progress Note Date: 08/24/19 This is a pleasant 64 stroke female who is status post mitral valve repair, seen and examined this morning on the cardiac unit. Overall she is doing well. Sitting up in her chair at this morning. Denies any shortness of breath, states that she had some difficulty sleeping through the night, but was able to sleep well when she was up in the chair. Ambulated with assistance. Blood pressure 138/70 with a heart rate of 90. White blood cell count 11.6, hemoglobin 7.9, platelet count 260. Sodium 132, potassium 3.9, BUN 13, creatinine 0.6. Objective - Vital Signs Vital signs: Vital Signs Temp 98.4 F 08/24/19 08:00 Pulse 105 H 08/24/19 08:00 Resp 20 08/24/19 08:00 BP 139/72 08/24/19 08:00 Pulse Ox 100 08/24/19 08:00 Intake & Output 08/23/19 08/24/19 08/24/19 18:59 06:59 18:59 Intake Total 720 300 360 Output Total 1900 900 Balance -1180 -600 360 Weight 90.2 kg Intake: Oral 720 300 360 Output: Urine 1900 900 Other: Voiding Method Bedside Commode # Voids 1 0 # Bowel Movements 1 0 ABP, PAP, CO, CI - Last Documented Arterial Blood Pressure 102/48 Pulmonary Artery Pressure 42/14 Cardiac Output 4.5 Cardiac Index 2.4 - Exam GENERAL EXAM: Alert, active, pleasant 64-year-old female patient, on room air, comfortable in no apparent distress. HEAD: Normocephalic. EYES: Normal reaction of pupils, equal size. NOSE: Clear with pink turbinates. THROAT: No erythema or exudates. NECK: No masses, no JVD. CHEST: Sternal dressing dry and intact. Her hospital in place. LUNGS: Equal air entry with basilar crackles. CVS: S1 and S2 normal with no audible murmur, regular rhythm. ABDOMEN: No hepatosplenomegaly, normal bowel sounds, no guarding or rigidity. SPINE: No scoliosis or deformity SKIN: No rashes CENTRAL NERVOUS SYSTEM: No focal deficits, tone is normal in all 4 extremities. EXTREMITIES: There is 1+ peripheral edema. No clubbing, no cyanosis. Peripheral pulses are intact. - Labs CBC & Chem 7: 08/24/19 05:27 08/24/19 05:27 Labs: Abnormal Lab Results - Last 24 Hours (Table) 08/23/19 08/23/19 08/23/19 Range/Units 11:28 16:35 20:22 WBC (3.8-10.6) k/uL RBC (3.80-5.40) m/uL Hgb (11.4-16.0) gm/dL Hct (34.0-46.0) % Sodium (137-145) mmol/L Chloride (98-107) mmol/L POC Glucose (mg/dL) 109 H 114 H 119 H (75-99) mg/dL 08/24/19 08/24/19 08/24/19 Range/Units 05:27 05:27 06:01 WBC 11.6 H (3.8-10.6) k/uL RBC 2.48 L (3.80-5.40) m/uL Hgb 7.9 L (11.4-16.0) gm/dL Hct 24.3 L (34.0-46.0) % Sodium 132 L (137-145) mmol/L Chloride 96 L (98-107) mmol/L POC Glucose (mg/dL) 105 H (75-99) mg/dL Assessment and Plan Plan: Assessment and plan: #1. Mitral valve prolapse, with severe mitral valve regurgitation with flail of P2, status post sternotomy, mitral valve repair, left atrial appendage exclusion, modified maze procedure, and intraoperative transesophageal echocardiogram, postoperative day 6 #2. Routine ventilator management postop sternotomy, extubated at 5 hours and 20 minutes of the OR exit time on 08/17/2019 #3. Paroxysmal atrial fibrillation, was on Eliquis, currently on hold, currently in sinus mechanism #4. Hyperlipidemia #5. Lifetime nonsmoker #6. Postop blood loss anemia, normal outcome of sternotomy and mitral valve repair surgery, with generalized weakness. Plan From cardiology's perspective, continue the patient on her current medications. Plans are being made for discharge today. She will have a follow-up appointment in the office post discharge. DNP note has been reviewed, I agree with a documented findings and plan of care. Patient was seen and examined.
[2019-08-24 12:06] LABS: Glucose,Whole Blood 129 mg/dL (75-99)
--- NOTE | 2019-08-24 13:42 | P.PN ---
Subjective Progress Note Date: 08/24/19 This is a 64-year-old female patient of Dr. Fracisco Casarez with past medical history of paroxysmal atrial fibrillation, gastroesophageal reflux disease, hyper lipidemia, mitral valve prolapse, breast cancer diagnosed in 2016 initially had a lumpectomy followed by simple mastectomy without chemotherapy or radiation, degenerative disc disease of the cervical and lumbar spine. Patient has been brought in the hospital on the care of . surgery status post mitral valve repair with exclusion of left atrial appendage, modified maze procedure and intraoperative transesophageal echocardiogram on 08/17/2019. Patient is seen today in the intensive care unit. She was successfully extubated last evening. Patient is complaining of significant pain in her chest of #9 out of 10. Vital signs at been stable. She denies any flatus. She states she was up in the chair this morning for several hours. She has a mediastinal and right pleural chest tubes in place, swans Cortis and left radial artery line. Patient had episode of SVT this morning status post medicine when converted to normal sinus rhythm. 08/18: Patient has been afebrile, heart rate 74, blood pressure 103/54, pulse ox 94% on 5 L nasal cannula. Repeat blood work reveals W BC 15.8, hemoglobin 8.6, platelet count 112. Sodium 129, BUN 22 and creatinine 0.84. Blood sugars running between 119 and 142. AST 69. Chest x-ray reveals bilateral pleural potential changes stable. Basilar postoperative atelectasis favored over pn eumonia. The patient is seen today sitting in a recliner. Patient's pain is better controlled today. She is complaining of spasms in her back and Flexeril but will be increased to 3 times daily. Insulin drip will be discontinued and start NovoLog scale. Patient states that she is not eating very much and does not have much appetite. She states she is passing gas. Soni catheter and Cordis discontinued. Patient is scheduled to have mediastinal chest tubes removed. 08/19: Patient is afebrile, heart rate 78, blood pressure 111/76, pulse ox 92% on 6 L nasal cannula. Repeat blood work reveals WBC 14.3, hemoglobin 8, platelet count 130, sodium 127, potassium 4.0, chloride 93, CO2 24, BUN 25 and creatinine 0.9. Capillary blood glucose running between 97 and 126. Patient is currently on NovoLog scale only. Patient states that she is not sleeping very well. Melatonin will be added. She is complaining of some nausea and not able to eat. She denies any vomiting. She did have diarrhea starting last evening and C. difficile toxin was negative. She states she only ate half a banana this morning. She complains of lower extremity edema which is worsened today and also shortness of breath with ambulation. She was given Lasix 40 mg IV this morning with diuresing. Cardiology has transition patient to amiodarone oral. Patient is waiting for a bed on the cardiac stepdown unit. 08/20: Patient is seen today on the cardiac stepdown unit. Patient is complaining of charley horses in the back of her ribs. No significant pain to the chest area. She states her breathing is improved today. Chest is been discontinued. Cardiology has resumed eliquis, aspirin. Amiodarone currently on 200 mg twice daily. Repeat chest x-ray reveals bilateral infiltrate with small effusion correlate for mild heart failure. Otherwise consider underlying pneumonia. Patient has been afebrile, heart rate 78, blood pressure 99/64, pulse ox 92% on room air. color television console monitor is in normal sinus rhythm. WBC 9.7, hemoglobin 7.9, platelet count 161. Sodium 129, potassium 3.6, chloride 95, CO2 29, BUN 23 creatinine 0.8. Blood sugars running between 88 and 118. Magnesium 2.4. Patient has been working with PT and OT. Discharge plan is home with [facility]. 08/21: Patient is seen today on the cardiac stepdown unit. She is and recliner with her legs elevated. She appears to be comfortable. She continues to complain of spasms in the back. She is on Flexeril 3 times daily. A repeat blood work reveals WBC 8.9, hemoglobin 7.6, platelet count 195, sodium 132, potassium 3.6, creatinine 2.86 and magnesium 2.3. Capillary blood glucose running between 81 and 126. Blood pressure 109/64, heart rate 78, patient has been afebrile, pulse ox 95% on room air. Patient states that she is scheduled for discharge home today. Patient does not require insulin or diabetic medications at discharge. 08/22: Chest x-ray reveals small effusions with patchy right greater than left basilar atelectasis consolidation. Possible background of mild pulmonary vascular congestion. Patient has been afebrile, heart rate 78, pulse ox 93% on room air, blood pressure 122/74. Vitamin B12 842, hemoglobin 7.6, sodium 133, BUN 20 creatinine 0.8. Patient has received 1 dose of Ferrlecit. Patient is on ferrous sulfate twice daily. Orthostatic vital signs and reported as normal. Flexeril was decreased to once daily due to patient having episodes of weakness. We will add lidocaine cream for back spasm/pain 08/23: Patient is seen today walking in the hallway and doing very well. Patient does not require any assistance. Back pain and spasm is improving. She denies any lightheadedness or dizziness. Patient has been afebrile, heart rate 105, blood pressure 139/72, pulse ox 100% on room air. Repeat lab work reveals a WBC 11.6, hemoglobin 7.9, creatinine 0.64. Blood sugars running between 95 and 129. Patient is scheduled for discharge today. Patient will have follow-up with Dr. Fracisco Casarez in the office. Objective - Vital Signs Vital signs: Vital Signs Temp 98.4 F 08/24/19 08:00 Pulse 105 H 08/24/19 08:00 Resp 20 08/24/19 08:00 BP 139/72 08/24/19 08:00 Pulse Ox 100 08/24/19 08:00 Intake & Output 08/23/19 08/24/19 08/24/19 18:59 06:59 18:59 Intake Total 720 300 360 Output Total 1900 900 Balance -1180 -600 360 Weight 90.2 kg Intake: Oral 720 300 360 Output: Urine 1900 900 Other: Voiding Method Bedside Commode # Voids 1 0 # Bowel Movements 1 0 ABP, PAP, CO, CI - Last Documented Arterial Blood Pressure 102/48 Pulmonary Artery Pressure 42/14 Cardiac Output 4.5 Cardiac Index 2.4 - Exam Review of Systems Constitutional: Reports poor appetite, Denies anorexia, Denies chills, Denies fatigue, Denies fever, Denies lethargy, Denies malaise Ears, nose, mouth and throat: Denies dental pain, Denies dysphagia, Denies nasal congestion, Denies nasal discharge, Denies vertigo Cardiovascular: Denies chest pain, Denies edema, Denies lightheadedness, Denies shortness of breath, Denies syncope, episodes of weakness Respiratory: Denies cough, Denies cough with sputum, Denies dyspnea, Denies excessive sputum, Denies hemoptysis, Denies home oxygen, Denies respiratory infections, Denies wheezing Gastrointestinal: Reports loss of appetite improved, Denies abdominal pain, reports diarrhea, reports nausea, Denies vomiting Genitourinary: Denies dysuria, Denies hematuria Musculoskeletal: Denies frequent falls, Denies gait dysfunction, Denies myalgias, reports back spasms Integumentary: Denies pruritus, Denies rash Neurological: Denies change in mentation, Denies change in speech, Denies numbness, Denies weakness Psychiatric: Denies anxiety, Denies depression, reports insomnia Endocrine: Denies fatigue, Denies weight change Physical examination Gen: This is a 64-year-old obese female. She is resting in chair and appears to be comfortable and in no acute distress. HEENT: Head is atraumatic, normocephalic. Pupils equal, round. Sclerae is anicteric. NECK: Supple. No JVD. No lymphadenopathy. No thyromegaly. LUNGS: Diminished bilaterally. No wheezes or rhonchi. No intercostal retractions. HEART: Regular rate and rhythm. No murmur. ABDOMEN: Soft. Bowel sounds normal. No masses. No tenderness. EXTREMITIES: Trace bilateral pedal edema. No calf tenderness. Dorsalis pedis +2 bilaterally. NEUROLOGICAL: Patient is awake, alert and oriented x3. Cranial nerves 2 through 12 are grossly intact. - Labs CBC & Chem 7: 08/24/19 05:27 08/24/19 05:27 Labs: Abnormal Lab Results - Last 24 Hours (Table) 08/23/19 08/23/19 08/23/19 Range/Units 11:28 16:35 20:22 WBC (3.8-10.6) k/uL RBC (3.80-5.40) m/uL Hgb (11.4-16.0) gm/dL Hct (34.0-46.0) % Sodium (137-145) mmol/L Chloride (98-107) mmol/L POC Glucose (mg/dL) 109 H 114 H 119 H (75-99) mg/dL 08/24/19 08/24/19 08/24/19 Range/Units 05:27 05:27 06:01 WBC 11.6 H (3.8-10.6) k/uL RBC 2.48 L (3.80-5.40) m/uL Hgb 7.9 L (11.4-16.0) gm/dL Hct 24.3 L (34.0-46.0) % Sodium 132 L (137-145) mmol/L Chloride 96 L (98-107) mmol/L POC Glucose (mg/dL) 105 H (75-99) mg/dL Assessment and Plan Plan: 1. Severe mitral valve regurgitation status post mitral valve repair. Continue aspirin, Lipitor 40 mg daily, Lopressor 50 mg twice daily. Continue current pain management. Continue to increase activity. Incentive spirometry reduce incidence of atelectasis and hospital-acquired pneumonia 2. History of paroxysmal atrial fibrillation, currently in a sinus rhythm. Continue eliquis, Lopressor and amiodarone 200 mg twice daily. 3. Episode of SVT converted with adenosine, expected. 4. Hypertension. Continue Lopressor. 5. Hyperlipidemia. Continue atorvastatin. 6. History of breast cancer status post lumpectomy followed by simple mastectomy, no chemotherapy or radiation treatment. Patient is currently on Arimidex. 7. DVT prophylaxis. 8. GI prophylaxis. Protonix. 9. Hyperglycemia without diabetes. Continue NovoLog scale before meals and at bedtime. No diabetic medications at discharge. 10. Diarrhea. C. difficile toxin negative. 11. Chronic back pain and spasms. Flexeril 10 mg daily as needed, lidocaine cream added. 12. Insomnia. Melatonin. Discharge plan: home Saturday with [facility]. Impression and plan of care have been directed as dictated by the signing physician. Melissa Wu nurse practitioner acting as scribe for signing physician.
--- NOTE | 2019-08-24 13:49 | P.DS ---
<Diandra Lau - Last Filed: 08/24/19 13:37> Providers Expected date of discharge: 08/24/19 Hospital Course: FINAL DIAGNOSIS: 1. 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 History of paroxysmal atrial fibrillation on Eliquis for anticoagulation 3. Hypertension 4. Hyperlipidemia 5. Arthritis 6. History of breast cancer within the last 5 years status post left mastectomy without radiation, currently on Arimadex 7. Postoperative acute blood loss anemia 8. Postoperative atrial tachycardia 9. Postoperative diarrhea PRINCIPAL PROCEDURE: 1. Complex mitral valve repair with triangular resection of P2, closure of P2, P3 cleft, construction all for chitra chordae to A2, complete ring annuloplasty using a 34 mm physio-2 ring 2. Modified pulmonary vein isolation with a box lesion using radiofrequency bipolar clamp from AtriCure 3. Exclusion of the left atrial appendage using a 35 mm AtriClip 4. Intraoperative transesophageal echocardiogram 5. Epi-aortic scanning HISTORY OF PRESENT ILLNESS: This is a 64-year-old lady who follows on an outpatient basis with Dr. Fracisco Casarez. She had a known history of mitral valve prolapse from around the year 1999 and had been on beta moreno and afterload reduction. She began experiencing occasional palpitations associated with lightheadedness and shortness of breath but denied any syncope, near syncope, or history of rheumatic fever. As she regained insurance coverage she had workup including 24-hour Holter, VINOD, and cardiac catheterization. She had normal coronaries on catheterization, paroxysmal atrial fibrillation noted on Holter monitor, and transesophageal echocardiogram demonstrating a flail P2 of the mitral valve with severe anteriorly directed jet and dilated left atrium with ejection fraction 55%, mild pulmonary hypertension, and mild tricuspid regurgitation. The patient was referred to Dr. Madrigal from cardiothoracic surgery. She was recommended to undergo mitral valve repair with pulmonary vein isolation and exclusion of the left atrial appendage. The usual perioperative course was discussed in detail with the patient and her family, all risks and benefits were explained, all questions were answered, and consent was obtained to proceed with surgery. The patient was scheduled for surgery at the earliest possible date after obtaining dental clearance. HOSPITAL COURSE: The patient was brought to the hospital on 08/17/2019, taken to the preoperative area, prepared in the usual fashion, and subsequently taken to the operating room where Dr. Madrigal performed a complex mitral valve repair, modified pulmonary vein isolation, and exclusion of the left atrial appendage. Upon completion of surgery the patient was transferred to the cardiovascular intensive care unit where she was recovered, monitored hemodynamically, and where she progressed to cardiac rehabilitation phase 1. She was extubated, all lines, tubes, and drips were discontinued when appropriate, and she was transferred to 3 S cardiac stepdown unit for further monitoring and rehabilitation. Her oxygen was titrated down, she continued to work with physical and occupational therapy, she was tolerating oral diet, her pain was controlled, and she was ready to be discharged to home with [facility] home care on postoperative day #7. She received written and verbal instruction regarding her medications, activity restrictions, signs and symptoms requiring physician notification, and follow-up appointments. COMPLICATIONS: The patient experienced postoperative blood loss anemia requiring no transfusion, atrial tachycardia which responded to amiodarone, and diarrhea which responded to Imodium. Patient Condition at Discharge: Stable Plan - Discharge Summary Discharge Rx Participant: Yes New Discharge Prescriptions: New Aspirin 81 mg PO DAILY #30 chew Amiodarone [Cordarone] 200 mg PO BID #60 tab Ferrous Sulfate [Iron (65 MG Elemental)] 325 mg PO BID-W/MEALS #30 tab Furosemide [Lasix] 20 mg PO DAILY #7 tab Atorvastatin [Lipitor] 40 mg PO DAILY #30 tab Metoprolol Tartrate [Lopressor] 75 mg PO BID #60 tab Magnesium Oxide [Mag-Ox] 400 mg PO DAILY #30 tab Potassium Citrate [Potassium Citrate ER] 10 meq PO DAILY #7 tablet.er Sennosides-Docusate Sodium [Senokot-S] 2 each PO HS PRN tab PRN Reason: Constipation Acetaminophen Tab [Tylenol] 1,000 mg PO Q6HR PRN tab PRN Reason: Fever And/ Or Pain Ascorbic Acid [Vitamin C] 500 mg PO BID-W/MEALS #30 tab Continue Cyclobenzaprine [Flexeril] 10 mg PO DAILY PRN PRN Reason: Pain Ubidecarenone [Co Q-10] 200 mg PO DAILY Cholecalciferol (Vitamin D3) [Vitamin D3] 2,000 unit PO DAILY [place]-3 Fatty Acids [[place]-3] 1,000 mg PO DAILY Multivit with Calcium,Iron,Min [Women's Multivitamin] 1 tab PO DAILY Esomeprazole Magnesium [NexIUM] 20 mg PO Q2D Anastrozole [Arimidex] 1 mg PO DAILY Apixaban [Eliquis] 5 mg PO BID traMADol HCL [Ultram] 50 mg PO Q6HR PRN PRN Reason: Pain Discontinued Simvastatin [Zocor] 40 mg PO HS Valsartan [Diovan] 80 mg PO DAILY Metoprolol Tartrate [Lopressor] 100 mg PO BID Ranitidine HCl 150 mg PO Q2D Ibuprofen 400 mg PO Q8H PRN PRN Reason: Pain Acetaminophen [Tylenol Arthritis] 1,300 mg PO BID PRN PRN Reason: Pain Discharge Medication List Cholecalciferol (Vitamin D3) [Vitamin D3] 2,000 unit PO DAILY 02/12/18 [History] Cyclobenzaprine [Flexeril] 10 mg PO DAILY PRN 02/12/18 [History] Ubidecarenone [Co Q-10] 200 mg PO DAILY 02/12/18 [History] Multivit with Calcium,Iron,Min [Women's Multivitamin] 1 tab PO DAILY 03/17/18 [History] [place]-3 Fatty Acids [[place]-3] 1,000 mg PO DAILY 03/17/18 [History] Anastrozole [Arimidex] 1 mg PO DAILY 08/29/18 [History] Esomeprazole Magnesium [NexIUM] 20 mg PO Q2D 08/29/18 [History] Apixaban [Eliquis] 5 mg PO BID 07/17/19 [History] traMADol HCL [Ultram] 50 mg PO Q6HR PRN 08/13/19 [History] Acetaminophen Tab [Tylenol] 1,000 mg PO Q6HR PRN tab 08/24/19 [Rx] Amiodarone [Cordarone] 200 mg PO BID #60 tab 08/24/19 [Rx] Ascorbic Acid [Vitamin C] 500 mg PO BID-W/MEALS #30 tab 08/24/19 [Rx] Aspirin 81 mg PO DAILY #30 chew 08/24/19 [Rx] Atorvastatin [Lipitor] 40 mg PO DAILY #30 tab 08/24/19 [Rx] Ferrous Sulfate [Iron (65 MG Elemental)] 325 mg PO BID-W/MEALS #30 tab 08/24/19 [Rx] Furosemide [Lasix] 20 mg PO DAILY #7 tab 08/24/19 [Rx] Magnesium Oxide [Mag-Ox] 400 mg PO DAILY #30 tab 08/24/19 [Rx] Metoprolol Tartrate [Lopressor] 75 mg PO BID #60 tab 08/24/19 [Rx] Potassium Citrate [Potassium Citrate ER] 10 meq PO DAILY #7 tablet.er 08/24/19 [Rx] Sennosides-Docusate Sodium [Senokot-S] 2 each PO HS PRN tab 08/24/19 [Rx] Follow up Appointment(s)/Referral(s): Diandra Lau NPC [Nurse Practitioner] - 08/31/19 10:00 am Rehab [facility]eda OLIVER,Cardiac [NON-STAFF] - 4 Weeks (You will receive a phone call from cardiac rehab in approximately 4 weeks to set up evaluation) Keisha Madrigal MD [STAFF PHYSICIAN] - 09/18/19 10:30 am Silviano Tafoya DO [Doctor of Osteopathic Medicine] - 09/04/19 9:15 am Allen Montero MD [STAFF PHYSICIAN] - 09/04/19 3:15 pm Fracisco Casarez MD [Primary Care Provider] - 09/07/19 1:00 pm [facility] Visiting Nurse, [NON-STAFF] - 1-2 Days Ambulatory/Diagnostic Orders: Complete Blood Count w/diff [LAB.AMB] Time Frame: 3 Days, Location: None Selected Comprehensive Metabolic Panel [LAB.AMB] Time Frame: 3 Days, Location: None Selected Patient Instructions/Handouts: How to Use an Incentive Spirometer (DC), Heart Healthy Diet (DC), Sternal Precautions (GEN), Mitral Valve Replacement (DC) Activity/Diet/Wound Care/Special Instructions: DISCHARGE INSTRUCTIONS: 1. No driving for 4 weeks, or until physician gives their ok. 2. The patient should sleep in their own bed, no medical bed needed. 3. Stairs are not an issue. If the bedroom is upstairs, it is advised that the patient go up at night and down in the morning for the first week. Go slowly, using handrail and take 1 step at a time. 4. GABE hose are to be worn for 30 days or until physician discontinues. 5. Heart hugger is to be worn 100% of the time until physician discontinues.(except when showering) 6. No lifting, pushing, or pulling more than 10 pounds for 12 weeks. The physician will advise of any restriction changes. 7. The patient is expected to continue the prescribed walking program. 8. Continue pain control per as needed orders. 9. Continue with incentive spirometry and splinting/heart hugger until otherwise directed by the physician. 10. Must shower daily using liquid antibacterial soap and a separate white washcloth for each individual incision. 11. Routine sternal incision care. No powders, lotions, ointments on incisions. No dressings are necessary on incisions unless they are draining. Dermabond tape is to remain on sternal incision until surgeon follow-up. 12. Please call surgeon/TOW TRUCK DISPATCHER for temp greater than 101 F or purulent drainage from incisions. 13. All prescriptions given by surgeon for 30 days. Refills need to be filled through dice person/primary care physician. 14. A Red armband has been placed on the patient. It should be worn for 30 days post surgery and will be removed by the cardiac surgeons. If an ER visit is necessary, please make sure the number on the Red armband is called. 15. You have been referred to and are expected to begin Cardiac Rehab in approximately 4-6 weeks. HOME HEALTH SERVICES TO PROVIDE: RN SKILLED HOME CARE SERVICES FOR POST-OP SURGICAL PATIENTS WITH THE FOLLOWING: Coronary Artery Bypass Surgery (CABG), Mitral Valve Replacement/Repair ( MVR), Aortic Valve Replacement/Repair (AVR) RN TO CONTINUE EDUCATION FROM ``ROAD TO A HEALTH HEART PATIENT EDUCATION MANUAL (GIVEN TO PATIENT IN THE HOSPITAL) MEDICATION RECONCILIATION WITH EDUCATION NEEDED ON FIRST HOME VISIT EMPHASIZE IMPORTANCE OF WEARING BREAST SUPPORT/HEART HUGGER ENCOURAGE USE OF INCENTIVE SPIROMETER 10 X EVERY HOUR WHILE AWAKE ENCOURAGE UTILIZATION OF LOWER EXTREMITY COMPRESSION STOCKINGS/GABE HOSE and ELEVATE LEGS ABOVE LEVEL OF HEART WHILE AT REST. ENCOURAGE AMBULATION 3-5x/day INCREASING TOLERATES, WHILE AVOIDING EXTREMES IN TEMPERATURE FREQUENCY: RN TO OPEN THE PATIENT WITHIN 24 HOURS OF DISCHARGE FROM THE HOSPITAL WITH TELEHEALTH INSTALLED AT [facility] [place], RN TO VISIT 2-3 X A WEEK FOR 4 WEEKS ESTABLISHED BY PATIENT NEEDS. LABORATORY: CBC, CMP TO BE DRAWN ON THE THIRD DAY HOME, (RAN STAT) FAX RESULTS TO [phone]. TELEHEALTH PARAMETERS: WEIGHT: NOTIFY MD OF WEIGHT GAIN OF 2 LBS IN 24 HOURS OR 5 LBS IN ONE WEEK HR: NOTIFY MD OF HR <55 BPM OR HR>100 BPM BP: NOTIFY MD IF BP <90/55 OR BP>140/100 O2 SAT: NOTIFY MD IF PO2<93% ON ROOM AIR SEND TELEHEALTH REPORT TO GUITAR MAKER AND CARDIOVASCULAR SURGEON THE FIRST WEEK OF CARE AND THEN BI-WEEKLY. PLEASE ADDITIONALLY COMMUNICATE ANY ABNORMALS AND NEW FINDINGS TO THE SURGEONS OFFICE. For any questions or concerns please call case investigator Diandra @ or Don @ Discharge Disposition: HOME WITH HOME HEALTH SERVICES Care Plan Goals (MU): Same day appointments for Dr. Tafoya and Dr. Montero <Keisha Madrigal - Last Filed: 08/29/19 12:49> Providers Date of admission: 08/17/19 05:32 Attending physician: Keisha Madrigal Consults: 08/17/19 14:36 Consult Physician Routine Consulting Provider: Silviano Tafoya Consult Reason/Comments: Sheet Ironworker Consult: post cardiac surgery Do you want consulting provider notified?: Yes Consult Physician Routine Consulting Provider: Alexandro Obrein Consult Reason/Comments: Mansoor christy patient Do you want consulting provider notified?: Yes Consult Physician Routine Consulting Provider: Allen Montero Consult Reason/Comments: Forestry Aid Consult: post cardiac surgery Do you want consulting provider notified?: Yes Primary care physician: Fracisco Casarez
--- NOTE | 2019-08-25 14:13 | CDI ---
Documentation Clarification Form Date: 08/25/19 From: Raquel Chaudhari Phone: If you have a question about this query, please contact Charlotte Vidales, Cabin Worker at [phone] between 8am and 5pm. Admit Date:08/17/19 Discharge Date: 08/24/19 Patient Name: KARL LEONARD Visit Number: [id number] ATTENTION: The Clinical Documentation Specialists (CDI) and [facility] Coding Staff appreciate your assistance in clarifying documentation. Please respond to the clarification below the line at the bottom and electronically sign. The CDI & [facility] Coding staff will review the response and follow-up if needed. Please note: Queries are made part of the Legal Health Record. If you have any questions, please contact the author of this message via ITS. Dear Dr. Keisha Madrigal, Basilar postoperative atelectasis is documented in the 08/18, 08/19, 08/20, 08/21, 08/22, 08/[address] Maynard. Atelectasis was documented by Dr Guaman in 08/21, 08/22 PNs . Patients Admitting Diagnosis:Severe mitral valve regurgitation with myxomatous mitral valve and flaid P2 segment. Post-Operative Diagnosis: same Procedure performed: Complex mitral valve repair with triangular resection of P2, closure of P2, P3 cleft, construction all 4 neochordae 2 A2, complete ring annuloplasty using a 34 mm Physio II ring. Modified pulmonary vein isolation with a box lesion using radiofrequency bipolar clamp from AtriCure. Excision of the left atrial appendage using a 35 mm AtriClip. Intraoperative VINOD and epiaortic scanning. History/Risk Factors: PAF, Breast ca, HTN, Pulmonary HTN, obesity, hyperlipidemia Clinical Indicators: 08/18 CXR- Bilateral pleural -parenchymal changes are stable correlate for CHF with basilar postoperative atelectasis favored over pneumonia correlate clinically. Treatment: Incentive spirometry In order to accurately reflect this patients severity of illness, please clarify if the postoperative atelectasis : has been ruled out is a complication of surgical procedure is an expected outcome of the surgical procedure is related to co-morbid condition(s) of Other please specify Unable to determine expected outcome MTDD
== END 2019-08-24 13:32 | disposition home health service (06) | DRG 220 ==
LOC: 2ORMAIN 05:32 → 2SICU 13:57 → 3SCARD 08-20 13:16
PROVIDERS: ADMIT Surgery; ATTEND Surgery
PROC: 02V Heart and Great Vessels, Restriction (ICD-10-PCS; principal; 2019-08-17 08:00)
PROC: 5A1221Z Performance of Cardiac Output, Continuous (ICD-10-PCS; principal; 2019-08-17 08:00)
PROC: 025T0ZZ Destruction of Left Pulmonary Vein, Open Approach (ICD-10-PCS; principal; 2019-08-17 08:00)
PROC: 02L70CK Occlusion of Left Atrial Appendage with Extraluminal Device, Open Approach (ICD-10-PCS; principal; 2019-08-17 08:00)
PROC: 025 Heart and Great Vessels, Destruction (ICD-10-PCS; principal; 2019-08-17 08:00)
PROC: B24BZZ4 Ultrasonography of Heart with Aorta, Transesophageal (ICD-10-PCS; principal; 2019-08-17 08:00)
PROC: 025 Heart and Great Vessels, Destruction (ICD-10-PCS; principal; 2019-08-17 08:00)
PROC: 02UG0JZ Supplement Mitral Valve with Synthetic Substitute, Open Approach (ICD-10-PCS; principal; 2019-08-17 08:00)
PROC: 02BG0ZZ Excision of Mitral Valve, Open Approach (ICD-10-PCS; principal; 2019-08-17 08:00)
DX: I08.1 Rheumatic disorders of both mitral and tricuspid valves (principal); I47.1 Supraventricular tachycardia; D62 Acute posthemorrhagic anemia; E87.1 Hypo-osmolality and hyponatremia; J98.11 Atelectasis; I27.20 Pulmonary hypertension, unspecified; C50.912 Malignant neoplasm of unspecified site of left female breast; I95.9 Hypotension, unspecified; Z68.37 Body mass index [BMI] 37.0-37.9, adult; E66.9 Obesity, unspecified; E87.70 Fluid overload, unspecified; I48.0 Paroxysmal atrial fibrillation; E54 Ascorbic acid deficiency; E78.5 Hyperlipidemia, unspecified; I10 Essential (primary) hypertension; R73.9 Hyperglycemia, unspecified; K21.9 Gastro-esophageal reflux disease without esophagitis; M81.0 Age-related osteoporosis without current pathological fracture; G89.29 Other chronic pain; M50.30 Other cervical disc degeneration, unspecified cervical region; M51.36 Other intervertebral disc degeneration, lumbar region; G47.00 Insomnia, unspecified; R19.7 Diarrhea, unspecified; M19.90 Unspecified osteoarthritis, unspecified site; Z79.01 Long term (current) use of anticoagulants; Z79.811 Long term (current) use of aromatase inhibitors; Z79.899 Other long term (current) drug therapy; Z90.12 Acquired absence of left breast and nipple; Z90.49 Acquired absence of other specified parts of digestive tract; Z87.19 Personal history of other diseases of the digestive system; Z98.890 Other specified postprocedural states; Z71.3 Dietary counseling and surveillance; Z88.1 Allergy status to other antibiotic agents; Z83.2 Family history of diseases of the blood and blood-forming organs and certain disorders involving the immune mechanism; Z82.49 Family history of ischemic heart disease and other diseases of the circulatory system; Z80.8 Family history of malignant neoplasm of other organs or systems; Z82.3 Family history of stroke; Z80.41 Family history of malignant neoplasm of ovary
CPT/HCPCS: 71045; 71046; 80048; 80053; 82330; 82607; 82805; 83735; 85025; 85027; 85520; 85610; 85730; 86850; 86891; 86900; 86901; 86920; 87324; 88305; 94002; 94640; 94760

== ENCOUNTER → 2020-02-25 | Outpatient (CLI) | payer MEDICARE ==
--- NOTE | 2020-02-25 14:20 | MR ---
EXAMINATION TYPE: MR brain wo con DATE OF EXAM: 02/25/2020 COMPARISON: NONE HISTORY: Acute severe vertigo TECHNIQUE: Multiplanar, multisequence imaging of the brain and brainstem is performed without IV cont rast. FINDINGS: Diffusion weighted images demonstrate no evidence of a recent infarct or other diffusion abnormality. There is no worrisome extra-axial fluid collection. There is mild ventricular and sulcal prominence. There are scattered foci of T2 hyperintensity seen throughout the white matter bilaterally. There are approximately 40-50 lesions of varying size. For reference there is 1.2 x 0.5 cm posterior right fro ntal lobe lesion axial image 21. For reference there is 1.3 x 0.6 cm high right frontal lesion axial image 23 anteriorly. Midline structures demonstrate normal morphology. The craniocervical junction appears within normal limits. Normal vascular flow voids are present. The visualized sinuses are clear and the globes are i ntact. IMPRESSION: There is mild diffuse age related cerebral atrophy and more moderate to borderline advanc ed nonspecific white matter changes.
--- NOTE | 2020-02-25 14:24 | MR ---
EXAMINATION TYPE: MR angio neck wo/w con DATE OF EXAM: 02/25/2020 COMPARISON: Carotid ultrasound August 12, 2019 HISTORY: Acute severe vertigo TECHNIQUE: MRA imaging of the neck without and with IV contrast. Patient injected with 8 cc of gadoli nium. 2-D and 3-D postprocessing imaging is performed on independent workstation and reviewed. FINDINGS: Normal 3 vessel origin from the aortic arch. The right common carotid artery shows normal o rigin from the right brachiocephalic artery. No significant stenosis in the right common or internal carotid artery including a level of right carotid bulb. External carotid artery on the right shows no significant stenosis. There is no significant stenosis in the left common or internal carotid artery including a level of c arotid bulb. Mild narrowing at origin of left external carotid artery noted. There is codominant vertebrobasilar system. Vertebral arteries are patent to basilar junction. IMPRESSION: No significant stenosis in common or internal carotid arteries bilaterally.
== END | disposition home or self-care (01) ==
LOC: RADMRIMAIN 12:38
PROVIDERS: ATTEND Psychiatry & Neurology Neurology
DX: G31.1 Senile degeneration of brain, not elsewhere classified (principal); R42 Dizziness and giddiness
CPT/HCPCS: 70549; 70551; A9585

== ENCOUNTER → 2020-04-26 | Outpatient (CLI) | payer MEDICARE ==
--- NOTE | 2020-04-26 14:55 | MM ---
Reason for exam: additional evaluation requested from prior study. Last mammogram was performed 1 year and 5 months ago. History: Patient is postmenopausal and has history of breast cancer at age 62. Mastectomy of the left breast, March 2018. Malignant MG pre op needle loc LT of the left breast, February 25, 2018. Lumpectomy of the left breast, February 25, 2018. Taking antineoplastic beginning at age 62. Physical Findings: Nurse did not find any significant physical abnormalities on exam. MG 3D Diag Mammo W/Cad RT CC and MLO view(s) were taken of the right breast. Prior study comparison: December 05, 2018, right breast MG 3d diag mammo w/cad RT. November 08, 2015, mammogram, performed at [facility]. There are scattered fibroglandular densities. There is no discrete abnormality. These results were verbally communicated with the patient and result sheet given to the patient on 04/26/20. ASSESSMENT: Benign, BI-RAD 2 RECOMMENDATION: Follow-up diagnostic mammogram of the right breast in 1 year.
== END | disposition home or self-care (01) ==
LOC: RADMAMWWP 14:06
PROVIDERS: ATTEND Family Medicine
DX: R92.8 Other abnormal and inconclusive findings on diagnostic imaging of breast (principal); Z85.3 Personal history of malignant neoplasm of breast; Z90.12 Acquired absence of left breast and nipple
CPT/HCPCS: 77065; G0279; 77061